=== PATIENT | female | born 1985 | race African-American/Black ===

== ENCOUNTER 2016-04-05 16:38 | Inpatient (IN) | payer MEDICARE, OTHER ==
[~2016-04-05] VITALS: Ht 170.2 cm; Wt 108.9 kg
[2016-04-05 19:00] VITALS: BP 120/75
[2016-04-05] MEDS ORDERED: ACET325T9 PO (19:34)
[2016-04-05] MEDS ORDERED: HYDR2DIS IV (19:34)
[2016-04-05] MEDS ORDERED: OXYC-250 PO ×2 (19:34)
[2016-04-05] MEDS ORDERED: AMLO10TA2 PO (19:34)
[2016-04-05] MEDS ORDERED: ACETAMINOPHEN 325 MG TABLET. PO PRN (19:45)
[2016-04-05] MEDS: HYDROMORPHONE 2 MG/ML VIAL. IV PRN ×2 (20:09→23:03)
[2016-04-05] MEDS: OXYCODONE/APAP 10/325 TABLET. PO SCH (21:14)
[2016-04-05] MEDS ORDERED: INSULIN ASPART 300 UNITS/3 ML INSULN.PEN SQ SCH (22:30)
[2016-04-05] MEDS ORDERED: DEXTROSE 50% 25 GM / 50ML DISP.SYRIN. IV PRN (22:30)
[2016-04-05] MEDS ORDERED: MORPHINE SULFATE 10 MG/ML VIAL. SQ PRN (22:30)
[2016-04-05] MEDS: PIPERACILLIN/TAZOBACTAM 3.375 GM in IV NORMAL SALINE 50ML 50 ML IV SCH (23:44)
[2016-04-05 23:46] VITALS: BP 123/80
[2016-04-06] VITALS (8 sets, daily range): BP systolic 114–143; BP diastolic 73–106
[2016-04-06] MEDS: HYDROMORPHONE 2 MG/ML VIAL. IV PRN ×5 (02:01→21:51)
[2016-04-06] MEDS: OXYCODONE/APAP 10/325 TABLET. PO PRN (02:59)
[2016-04-06] MEDS: PIPERACILLIN/TAZOBACTAM 3.375 GM in IV NORMAL SALINE 50ML 50 ML IV SCH ×3 (05:03→18:13)
[2016-04-06 05:58] LABS: BASO # 0.1 x10^3/uL (0.0-0.2); BASO % 1 % (0-3); EOS % 3 % (0-3); HEMATOCRIT 21.2 % (36.0-47.0); LYMPH # 1.9 x10^3/uL (1.0-4.8); LYMPH % 16 % (24-48); MEAN CORPUSCULAR HEMOGLOBIN 30 pg (25-35); MEAN CORPUSCULAR HGB CONC 32 g/dL (31-37); MEAN CORPUSCULAR VOLUME 93 fL (79-100); MONO % 10 % (0-9); NEUT % 71 % (31-73); PLATELET COUNT 283 x10^3/uL (140-400); RED BLOOD COUNT 2.27 x10^6/uL (3.50-5.40); RED CELL DISTRIBUTION WIDTH 15.1 % (11.5-14.5); WHITE BLOOD COUNT 12.4 x10^3/uL (4.0-11.0)
[2016-04-06 06:02] LABS: HEMOGLOBIN 6.7 g/dL (12.0-15.5)
[2016-04-06 06:25] LABS: ALBUMIN 2.3 g/dL (3.4-5.0); ALBUMIN/GLOBULIN RATIO 0.6 (1.0-1.7); CALCIUM 7.8 mg/dL (8.5-10.1); CREATININE 1.7 mg/dL (0.6-1.0); GFR 42.7; POTASSIUM 4.9 mmol/L (3.5-5.1); TOTAL BILIRUBIN 0.1 mg/dL (0.2-1.0); TOTAL PROTEIN 6.3 g/dL (6.4-8.2)
[2016-04-06] MEDS: INSULIN ASPART 300 UNITS/3 ML INSULN.PEN SQ SCH ×3 (08:00→17:00)
[2016-04-06] MEDS: GABAPENTIN 300 MG CAPSULE. PO SCH ×2 (08:54→21:06)
[2016-04-06] MEDS: AMLODIPINE BESYLATE 10 MG TABLET PO SCH (08:55)
[2016-04-06] MEDS: PANTOPRAZOLE 40 MG TABLET. PO SCH (08:55)
[2016-04-06] MEDS: METOPROLOL TART IMMED RELEASE 25 MG TABLET PO SCH ×2 (08:56→21:06)
[2016-04-06] MEDS: INSULIN DETEMIR 300 UNITS/3 ML INSULN.PEN. SQ SCH ×2 (09:00→21:09)
[2016-04-06] MEDS: OXYCODONE/APAP 10/325 TABLET. PO SCH ×3 (09:04→21:07)
[2016-04-06] MEDS: NICOTINE 21MG PATCH. TD SCH (09:05)
--- NOTE | 2016-04-06 09:06 | PDOC ---
Infectious Disease Note Vital Sign Vital Signs Vital Signs Date Time Temp Pulse Resp B/P Pulse Ox O2 Delivery O2 Flow Rate FiO2 04/06/16 03:02 97.5 102 16 124/80 92 Room Air 97.5 Labs Lab Laboratory Tests Test 04/05/16 22:11 04/06/16 05:00 04/06/16 08:22 Glucose (Fingerstick) 142mg/dL (70-99) 355mg/dL (70-99) White Blood Count 12.4x10^3/uL (4.0-11.0) Red Blood Count 2.27x10^6/uL (3.50-5.40) Hemoglobin 6.7g/dL (12.0-15.5) Hematocrit 21.2% (36.0-47.0) Mean Corpuscular Volume 93fL (79-100) Mean Corpuscular Hemoglobin 30pg (25-35) Mean Corpuscular Hemoglobin Concent 32g/dL (31-37) Red Cell Distribution Width 15.1% (11.5-14.5) Platelet Count 283x10^3/uL (140-400) Neutrophils (%) (Auto) 71% (31-73) Lymphocytes (%) (Auto) 16% (24-48) Monocytes (%) (Auto) 10% (0-9) Eosinophils (%) (Auto) 3% (0-3) Basophils (%) (Auto) 1% (0-3) Neutrophils # (Auto) 8.8x10^3uL (1.8-7.7) Lymphocytes # (Auto) 1.9x10^3/uL (1.0-4.8) Monocytes # (Auto) 1.2x10^3/uL (0.0-1.1) Eosinophils # (Auto) 0.4x10^3/uL (0.0-0.7) Basophils # (Auto) 0.1x10^3/uL (0.0-0.2) Sodium Level 140mmol/L (136-145) Potassium Level 4.9mmol/L (3.5-5.1) Chloride Level 111mmol/L (98-107) Carbon Dioxide Level 22mmol/L (21-32) Anion Gap 7 (6-14) Blood Urea Nitrogen 16mg/dL (7-20) Creatinine 1.7mg/dL (0.6-1.0) Estimated GFR (Cockcroft-Gault) 42.7 BUN/Creatinine Ratio 9 (6-20) Glucose Level 280mg/dL (70-99) Calcium Level 7.8mg/dL (8.5-10.1) Total Bilirubin 0.1mg/dL (0.2-1.0) Aspartate Amino Transf (AST/SGOT) 40U/L (15-37) Alanine Aminotransferase (ALT/SGPT) 54U/L (14-59) Alkaline Phosphatase 117U/L (46-116) Total Protein 6.3g/dL (6.4-8.2) Albumin 2.3g/dL (3.4-5.0) Albumin/Globulin Ratio 0.6 (1.0-1.7) Objective Assessment Right Buttock abscess Leukocytosis Anemia Substance abuse INOCENCIA DM ? Personality Disorder Plan Plan of Care Cont abx Await surgery F/u cults/labs Thank you # [phone] PAL RIOS MD Apr 06, 2016 09:06
[2016-04-06] MEDS: FLUCONAZOLE 100MG/50ML PREMIX 50 ML IV SCH (10:56)
--- NOTE | 2016-04-06 11:49 | PDOC2 ---
CONSULT Date of Consult Date of Consult DATE: 04/06/16 TIME: 11:44 History of Present Illness Reason for Visit: The patient is a 30 year old female who reported to the ER with pain and swelling near the right gluteus. This has been going on for the last several days, and she denies drainage. Past Medical History Past Medical History DM, hypertension, hyperlipidemia, hidradenitis of axilla/groin Past Surgical History Past Surgical History C section X 2, L axillar/R groin I and D, toe amputation Current Medications Current Medications Current Medications Acetaminophen (Tylenol) 650 mg PRN Q4HRS PRN PO PAIN; Start 04/05/16 at 19:45 Amlodipine Besylate (Norvasc) 10 mg DAILY PO Last administered on 04/06/16 08: 55; Start 04/06/16 at 09:00 Oxycodone/ Acetaminophen (Percocet 10/325) 1 tab PRN Q6HRS PRN PO PAIN Last administered on 04/06/16 02:59; Start 04/05/16 at 19:45 Oxycodone/ Acetaminophen (Percocet 10/325) 2 tab TID PO Last administered on 09:04; Start 04/05/16 at 21:00 Hydromorphone HCl 1 mg 1 mg PRN Q3HRS PRN IV PAIN Last administered on 10:57; Start 04/05/16 at 20:00 Linezolid (Zyvox Premix) 300 ml @ 300 mls/hr Q12HR IV Last administered on 08:56; Start 04/05/16 at 21:00 Gabapentin (Neurontin) 900 mg BID PO Last administered on 04/06/16 08:54; Start 04/06/16 at 09:00 Insulin Detemir (Levemir) 20 units BID SQ Last administered on 04/06/16 09:00 ; Start 04/06/16 at 09:00 Insulin Aspart (Novolog) 0-7 UNITS PRN QID SQ ; Start 04/05/16 at 22:30; Status UNV Dextrose 12.5 gm 12.5 gm PRN Q15MIN PRN IV SEE COMMENTS; Start 04/05/16 at 22: 30 Fluconazole/ Sodium Chloride (Diflucan 100mg/ 50ml Premix) 50 ml @ 100 mls/hr Q24H IV Last administered on 04/06/16 10:56; Start 04/06/16 at 11:00 Metoprolol Tartrate (Lopressor) 25 mg BID PO Last administered on 04/06/16 08: 56; Start 04/06/16 at 09:00 Morphine Sulfate 10 mg PRN QID PRN SQ SEVERE PAIN; Start 04/05/16 at 22:30 Nicotine (Nicoderm Cq 21mg) 1 patch DAILY TD Last administered on 04/06/16 09: 05; Start 04/06/16 at 09:00 Ondansetron HCl (Zofran) 4 mg PRN Q6HRS PRN IV NAUSEA/VOMITING; Start 04/05/16 at 22:30 Pantoprazole Sodium 40 mg 40 mg DAILYAC PO Last administered on 04/06/16 08:55 ; Start 04/06/16 at 07:30 Piperacillin Sod/ Tazobactam Sod/ Sodium Chloride (Zosyn/Iv Sodium Chloride 0.9 % 50ml) 50 ml @ 100 mls/hr Q6HRS IV Last administered on 04/06/16 05:03; Start 04/06/16 at 00:00 Promethazine HCl (Phenergan) 12.5 mg PRN BID PRN PO NAUSEA/VOMITING; Start at 22:30 Atorvastatin Calcium (Lipitor) 10 mg QHS PO ; Start 04/06/16 at 21:00 Tamsulosin HCl (Flomax) 0.4 mg QHS PO ; Start 04/06/16 at 21:00 Insulin Aspart (Novolog) 0-9 UNITS TIDWMEALS SQ Last administered on 04/06/16 08:00; Start 04/06/16 at 08:00 Active Scripts Active Reported Percocet 10-325 Mg Tablet (Oxycodone/Acetaminophen) 1 Each Tablet 2 Tab PO TID Percocet 10-325 Mg Tablet (Oxycodone/Acetaminophen) 1 Each Tablet 1 Tab PO Q6HRS PRN Hydromorphone 2 Mg/Ml Syringe (Hydromorphone Hcl) 2 Mg/1 Ml Disp.syrin 1 Mg IV Q3HRS PRN Amlodipine Besylate 10 Mg Tablet 10 Mg PO DAILY Tylenol (Acetaminophen) 325 Mg Tablet 650 Mg PO Q4HRS PRN Allergies Allergies: Coded Allergies: No Known Drug Allergies (Unverified , 04/05/16) ROS General: No: Appetite, Chills, Fatigue, Malaise, Night Sweats, Other PSYCHOLOGICAL ROS: No: Anxiety, Behavioral Disorder, Concentration difficultie , Decreased libido, Depression, Disorientation, Hallucinations, Hostility, Irritablity, Memory difficulties, Mood Swings, Obsessive thoughts, Other, Physical abuse, Sexual abuse, Sleep disturbances, Suicidal ideation Eyes: No Blurry vision, No Decreased vision, No Double vision, No Dry eyes, No Excessive tearing, No Eye Pain, No Itchy Eyes, No Loss of vision, No Other, No Photophobia, No Scotomata, No Uses contacts, No Uses glasses HEENT: No: Epistaxis, Heacaches, Hearing change, Nasal congestion, Nasal discharge, Oral lesions, Other, Sinus pain, Sneezing, Snoring, Sore Throat, Tinnitus, Vertigo, Visual Changes, Vocal changes ALLERGY AND IMMUNOLOGY: No: Hives, Insect Bite Sensitivity, Itchy/Watery Eyes, Nasal Congestion, Other, Post Nasal Drip, Seasonal Allergies Hematological and Lymphatic: No: Bleeding Problems, Blood Clots, Blood Transfusions, Brusing, Night Sweats, Other, Pallor, Swollen Lymph Nodes Respiratory: No: Cough, Hemoptysis, Orthopnea, Other, Pleuritic Pain, SOB with excertion, Shortness of breath, Sputum Changes, Stridor, Tachypnea, Wheezing Cardiovascular: No Chest Pain, No Edema, No Lt Headedness, No Orthopnea, No Other, No Palpitations, No Paroxysmal Noc. Dyspnea Gastrointestinal: No Abdominal Pain, No Constipation, No Diarrhea, No Hematochezia, No Melena, No Nausea, No Other, No Vomiting Genitourinary: No , No , No , No , No , No , No , No Discharge, No Dysuria, No Flank Pain, No Frequency, No Hematuria, No Incontinence, No Other, No Pain, No Retention, No Urgency Musculoskeletal: No Gait Disturbance, No Joint Pain, No Joint Stiffness, No Joint Swelling, No Muscle Pain, No Muscular Weakness, No Other, No Pain In:, No Swelling In: Neurological: No Behavorial Changes, No Bowel/Bladder ControlChng, No Confusion , No Dizziness, No Gait Disturbance, No Headaches, No Impaired Coord/balance, No Memory Loss, No Numbness/Tingling, No Other, No Seizures, No Speech Problems , No Tremors, No Visual Changes, No Weakness Physical Exam Physical Exam R gluteus with induration, fluctuation General: Alert, Oriented X3, Other (somewhat unpleasant) HEENT: Atraumatic, PERRLA Lungs: Clear to auscultation Heart: Regular rate Abdomen: Normal bowel sounds, Soft Extremities: No clubbing, No cyanosis Neuro: Normal speech, Strength at 5/5 X4 ext Psych/Mental Status: Other (verbally antagonistic) Vitals VITALS Vital Signs Date Time Temp Pulse Resp B/P Pulse Ox O2 Delivery O2 Flow Rate FiO2 04/06/16 08:56 110 122/78 04/06/16 07:10 97.7 16 95 Room Air 97.7 Labs Labs Laboratory Tests Test 04/05/16 22:11 04/06/16 05:00 04/06/16 08:22 Glucose (Fingerstick) 142mg/dL (70-99) 355mg/dL (70-99) White Blood Count 12.4x10^3/uL (4.0-11.0) Red Blood Count 2.27x10^6/uL (3.50-5.40) Hemoglobin 6.7g/dL (12.0-15.5) Hematocrit 21.2% (36.0-47.0) Mean Corpuscular Volume 93fL (79-100) Mean Corpuscular Hemoglobin 30pg (25-35) Mean Corpuscular Hemoglobin Concent 32g/dL (31-37) Red Cell Distribution Width 15.1% (11.5-14.5) Platelet Count 283x10^3/uL (140-400) Neutrophils (%) (Auto) 71% (31-73) Lymphocytes (%) (Auto) 16% (24-48) Monocytes (%) (Auto) 10% (0-9) Eosinophils (%) (Auto) 3% (0-3) Basophils (%) (Auto) 1% (0-3) Neutrophils # (Auto) 8.8x10^3uL (1.8-7.7) Lymphocytes # (Auto) 1.9x10^3/uL (1.0-4.8) Monocytes # (Auto) 1.2x10^3/uL (0.0-1.1) Eosinophils # (Auto) 0.4x10^3/uL (0.0-0.7) Basophils # (Auto) 0.1x10^3/uL (0.0-0.2) Sodium Level 140mmol/L (136-145) Potassium Level 4.9mmol/L (3.5-5.1) Chloride Level 111mmol/L (98-107) Carbon Dioxide Level 22mmol/L (21-32) Anion Gap 7 (6-14) Blood Urea Nitrogen 16mg/dL (7-20) Creatinine 1.7mg/dL (0.6-1.0) Estimated GFR (Cockcroft-Gault) 42.7 BUN/Creatinine Ratio 9 (6-20) Glucose Level 280mg/dL (70-99) Calcium Level 7.8mg/dL (8.5-10.1) Total Bilirubin 0.1mg/dL (0.2-1.0) Aspartate Amino Transf (AST/SGOT) 40U/L (15-37) Alanine Aminotransferase (ALT/SGPT) 54U/L (14-59) Alkaline Phosphatase 117U/L (46-116) Total Protein 6.3g/dL (6.4-8.2) Albumin 2.3g/dL (3.4-5.0) Albumin/Globulin Ratio 0.6 (1.0-1.7) Laboratory Tests Test 04/05/16 22:11 04/06/16 05:00 04/06/16 08:22 Glucose (Fingerstick) 142mg/dL (70-99) 355mg/dL (70-99) White Blood Count 12.4x10^3/uL (4.0-11.0) Red Blood Count 2.27x10^6/uL (3.50-5.40) Hemoglobin 6.7g/dL (12.0-15.5) Hematocrit 21.2% (36.0-47.0) Mean Corpuscular Volume 93fL (79-100) Mean Corpuscular Hemoglobin 30pg (25-35) Mean Corpuscular Hemoglobin Concent 32g/dL (31-37) Red Cell Distribution Width 15.1% (11.5-14.5) Platelet Count 283x10^3/uL (140-400) Neutrophils (%) (Auto) 71% (31-73) Lymphocytes (%) (Auto) 16% (24-48) Monocytes (%) (Auto) 10% (0-9) Eosinophils (%) (Auto) 3% (0-3) Basophils (%) (Auto) 1% (0-3) Neutrophils # (Auto) 8.8x10^3uL (1.8-7.7) Lymphocytes # (Auto) 1.9x10^3/uL (1.0-4.8) Monocytes # (Auto) 1.2x10^3/uL (0.0-1.1) Eosinophils # (Auto) 0.4x10^3/uL (0.0-0.7) Basophils # (Auto) 0.1x10^3/uL (0.0-0.2) Sodium Level 140mmol/L (136-145) Potassium Level 4.9mmol/L (3.5-5.1) Chloride Level 111mmol/L (98-107) Carbon Dioxide Level 22mmol/L (21-32) Anion Gap 7 (6-14) Blood Urea Nitrogen 16mg/dL (7-20) Creatinine 1.7mg/dL (0.6-1.0) Estimated GFR (Cockcroft-Gault) 42.7 BUN/Creatinine Ratio 9 (6-20) Glucose Level 280mg/dL (70-99) Calcium Level 7.8mg/dL (8.5-10.1) Total Bilirubin 0.1mg/dL (0.2-1.0) Aspartate Amino Transf (AST/SGOT) 40U/L (15-37) Alanine Aminotransferase (ALT/SGPT) 54U/L (14-59) Alkaline Phosphatase 117U/L (46-116) Total Protein 6.3g/dL (6.4-8.2) Albumin 2.3g/dL (3.4-5.0) Albumin/Globulin Ratio 0.6 (1.0-1.7) Assessment/Plan Assessment/Plan R gluteal abscess, plan for I and D. Pt currently on diet, will make NPO after midnight and schedule in AM. LUCHO LORD MD Apr 06, 2016 11:49
--- NOTE | 2016-04-06 11:59 | HP ---
ADMIT DATE: 04/06/2016 HISTORY OF PRESENT ILLNESS: The patient is a 30-year-old -Citizen Of [place] female patient who was admitted on 04/02/2015 to the Emergency Room at [facility] complaining of pain in her right gluteal area and back pain, also complaining that her blood sugars were high. She also thought that she had a UTI and complained of dysuria and frequency and she was extensively investigated in the Emergency Room, was found to have right gluteal abscess/cellulitis. She has a neurogenic bladder with urinary retention that she does self-catheterize. Her blood sugar was markedly elevated. She has also marked leukocytosis, her white cell count of 16,000 and was admitted with poorly controlled blood sugar, right gluteal abscess/cellulitis as well as possible urinary tract infection. Her urinalysis, however, was unremarkable and her urine culture did not show any growth ____ area in the right gluteal area extending to the right labia was mostly induration without any drainable fluid collection on the first ultrasound; however, on the second ultrasound done 2 days later, which showed that there is an adenomatous soft tissue and the right labia and buttocks region. In addition, there is a more focal hypoechoic lesion seen within the subcutaneous soft tissue and could be from phlegmon formation. While in the hospital, her white cell count was initially high at 20,000 and today it came down to 15,500. I did start her on IV Zosyn and vancomycin through her Port-A-Cath. Unfortunately, her serum creatinine has steadily risen from 1.5 to 2.2 and given that she might require surgical incision and her kidney function as well as her liver function are slightly worse. I decided to transfer her to [facility] to consult the surgical team for possible incision and drainage of her right gluteal abscess as well as consult the Infectious Disease and Nephrology team. I did discontinue her acyclovir and vancomycin as a potential cause of her acute kidney injury. PAST MEDICAL HISTORY: Significant for hypertension, longstanding type 1 diabetes with multiple complications including multiple episodes of diabetic ketoacidosis, neurogenic bladder and diabetic nephropathy as well as neuropathy. She has had her right great toe amputated. She has also chronic kidney disease stage 3. PAST SURGICAL HISTORY: Significant for x2, tibio-talocalcaneal arthrodesis. She has also Port-A-Cath placement in the right great toe amputation. FAMILY HISTORY: Positive for type 2 diabetes, hypertension and heart disease in her mother and diabetes in her paternal grandmother. SOCIAL HISTORY: She lives with her 2 children. She smokes half a pack a day for 15 years. She does not drink alcohol; however, his urine toxicology screen was positive for cocaine and cannabinoids. REVIEW OF SYSTEMS: As per history of present illness. ALLERGIES: She apparently has no known drug allergies. MEDICATIONS: She was transferred to [facility] to continue on following medications: ____ acyclovir 400 mg once a day, amlodipine besylate 10 mg once a day, Colace 100 mg twice a day, gabapentin 600 mg p.o. b.i.d. She is on NovoLog insulin 10 units before meals and bedtime. She is on Lantus 20 units twice a day, metoprolol tartrate 25 mg p.o. b.i.d., ondansetron 4 mg IV every 4 hours as needed. She is on oxycodone/APAP 10/325 ____ two tablets 3 times a day, Protonix 40 mg once a day, promethazine 12.5 mg b.i.d. p.r.n. and simvastatin 20 mg once a day, tamsulosin 0.4 mg at bedtime and tramadol 50 mg tablet. PHYSICAL EXAMINATION: GENERAL: When I examined her this morning, she looked well and was clearly in no apparent respiratory distress. She was pale, but no jaundice, cyanosis or thyromegaly. No jugular venous distention. No limb edema. VITAL SIGNS: Her heart rate was 93, blood pressure 132/87, temperature was 98.8, respiratory rate was 20, and oxygen saturation was 93%. HEAD, EYES, EARS, NOSE AND THROAT: Showed normocephalic, atraumatic. NECK: Supple. HEART: Showed normal first and second heart sounds with no gallop, rub or murmur. CHEST: Shows central trachea. She has a Port-A-Cath in the right infraclavicular area, equal bilateral chest expansion, air entry, vesicular sounds. No crepitation or rhonchi. ABDOMEN: Distended, soft, nontender. No guarding or rigidity. No organomegaly. Hernial orifices intact. Bowel sounds normal. NEUROLOGIC: She was awake, alert, responding appropriately. Cranial nerves intact. EXTREMITIES: She moves extremities without difficulty. She ambulates without assistance or assistive devices. LABORATORY DATA: Her lab work this morning showed a white cell count 12,400, hemoglobin 6.7, hematocrit 21.2, MCV 93, and platelet count 283,000 with a manual differential showed 71% polymorphs, 16% lymphocytes, and 10% monocytes. Her chemistry showed that her serum sodium was 140, potassium 4.9, chloride 111, bicarbonate 22, anion gap of 7, BUN 16, creatinine 1.7, estimated GFR was 42 mL per minute. Her glucose was 280, calcium was 7.1. Total bilirubin, AST, ALT, alkaline phosphatase are slightly high, but trending down. Her total protein was 6.3, albumin was 2.3. PLAN: My plan is to consult the Infectious Disease, the surgical team as well as the Nephrology, although her creatinine is trending down to her baseline after I stop her acyclovir as well as the vancomycin. We will continue with Zyvox, fluconazole and Zosyn and transfuse her 1 unit of packed RBCs. I will also check her hematinics and decide on further management accordingly. ETHAN LAW MD DR: LEXIS/indira JOB#: [id number] / [id number]
--- NOTE | 2016-04-06 15:56 | PDOC2 ---
CONSULT Date of Consult Date of Consult DATE: 04/06/16 TIME: 15:49 Reason for Consult Reason for Consult: INOCENCIA/ ? CKD III Referring Physician Referring Physician: Dr Sal Identification/Chief Complaint Chief Complaint Back pain Problems: Source Source: Chart review, Patient History of Present Illness Reason for Visit: as dictated Past Medical History Past Medical History PAST SURGICAL HISTORY: Significant for x2, tibio-talocalcaneal arthrodesis. She has also Port-A-Cath placement in the right great toe amputation. FAMILY HISTORY: Positive for type 2 diabetes, hypertension and heart disease in her mother and diabetes in her paternal grandmother. SOCIAL HISTORY: She lives with her 2 children. She smokes half a pack a day for 15 years. She does not drink alcohol; however, his urine toxicology screen was positive for cocaine and cannabinoids. Current Medications Current Medications Current Medications Acetaminophen (Tylenol) 650 mg PRN Q4HRS PRN PO PAIN; Start 04/05/16 at 19:45 Amlodipine Besylate (Norvasc) 10 mg DAILY PO Last administered on 04/06/16 08: 55; Start 04/06/16 at 09:00 Oxycodone/ Acetaminophen (Percocet 10/325) 1 tab PRN Q6HRS PRN PO PAIN Last administered on 04/06/16 02:59; Start 04/05/16 at 19:45 Oxycodone/ Acetaminophen (Percocet 10/325) 2 tab TID PO Last administered on 14:23; Start 04/05/16 at 21:00 Hydromorphone HCl 1 mg 1 mg PRN Q3HRS PRN IV PAIN Last administered on 10:57; Start 04/05/16 at 20:00 Linezolid (Zyvox Premix) 300 ml @ 300 mls/hr Q12HR IV Last administered on 08:56; Start 04/05/16 at 21:00 Gabapentin (Neurontin) 900 mg BID PO Last administered on 04/06/16 08:54; Start 04/06/16 at 09:00 Insulin Detemir (Levemir) 20 units BID SQ Last administered on 04/06/16 09:00 ; Start 04/06/16 at 09:00 Insulin Aspart (Novolog) 0-7 UNITS PRN QID SQ ; Start 04/05/16 at 22:30; Status UNV Dextrose 12.5 gm 12.5 gm PRN Q15MIN PRN IV SEE COMMENTS; Start 04/05/16 at 22: 30 Fluconazole/ Sodium Chloride (Diflucan 100mg/ 50ml Premix) 50 ml @ 100 mls/hr Q24H IV Last administered on 04/06/16 10:56; Start 04/06/16 at 11:00 Metoprolol Tartrate (Lopressor) 25 mg BID PO Last administered on 04/06/16 08: 56; Start 04/06/16 at 09:00 Morphine Sulfate 10 mg PRN QID PRN SQ SEVERE PAIN; Start 04/05/16 at 22:30 Nicotine (Nicoderm Cq 21mg) 1 patch DAILY TD Last administered on 04/06/16 09: 05; Start 04/06/16 at 09:00 Ondansetron HCl (Zofran) 4 mg PRN Q6HRS PRN IV NAUSEA/VOMITING; Start 04/05/16 at 22:30 Pantoprazole Sodium 40 mg 40 mg DAILYAC PO Last administered on 04/06/16 08:55 ; Start 04/06/16 at 07:30 Piperacillin Sod/ Tazobactam Sod/ Sodium Chloride (Zosyn/Iv Sodium Chloride 0.9 % 50ml) 50 ml @ 100 mls/hr Q6HRS IV Last administered on 04/06/16 14:25; Start 04/06/16 at 00:00 Promethazine HCl (Phenergan) 12.5 mg PRN BID PRN PO NAUSEA/VOMITING; Start at 22:30 Atorvastatin Calcium (Lipitor) 10 mg QHS PO ; Start 04/06/16 at 21:00 Tamsulosin HCl (Flomax) 0.4 mg QHS PO ; Start 04/06/16 at 21:00 Insulin Aspart (Novolog) 0-9 UNITS TIDWMEALS SQ Last administered on 04/06/16 12:00; Start 04/06/16 at 08:00 Active Scripts Active Reported Percocet 10-325 Mg Tablet (Oxycodone/Acetaminophen) 1 Each Tablet 2 Tab PO TID Percocet 10-325 Mg Tablet (Oxycodone/Acetaminophen) 1 Each Tablet 1 Tab PO Q6HRS PRN Hydromorphone 2 Mg/Ml Syringe (Hydromorphone Hcl) 2 Mg/1 Ml Disp.syrin 1 Mg IV Q3HRS PRN Amlodipine Besylate 10 Mg Tablet 10 Mg PO DAILY Tylenol (Acetaminophen) 325 Mg Tablet 650 Mg PO Q4HRS PRN Allergies Allergies: Coded Allergies: No Known Drug Allergies (Unverified , 04/05/16) ROS Review of System GEN: subj Fevers no Chills EYES: ch Visual Complaints ENT: no EN Drainage no Hearing deficiets CVS: no Orthopnea no CP RESP: no SOB no FLORES GI: min Nausea occ Vomiting : no Dysuria no Urgency - self caths HEME: no easy bruising no Palp Ly Nodes NEURO no Focal Weakness no Sz PSYCH: no Suicidal Ideation ++ Depression SKIN: no Rashes ENDO: no Polyuria or Polydipsia no Hot/Cold Intolerance MU SK: _ Arthraigia min back pain/ ? Myalgia Physical Exam Physical Exam General Appearance: Awake Alert Oriented x 3 In min Distress; Tearful/ depressed Eyes: VIsion Unchanged Conjunctiva Normal EN: No EN Drainage Mucous Memb. moist Neck: no JVD no JVP Supple no Thyromegaly CVS: S1 S2 ? Murmur No Gallop No Rub +2 Edema Resp: rare Rales no Rhonchi no Acc. Muscle use GI: BS +ve NO Bruit Non Tender Non Distended : no CVA tenderness; no Suprapubic Tenderness SKIN: no Rashes Breast Exam deferred; ? Discoloration of Lt great toe Mu.Sk: Decreased ROM in foot no Muscle Atrophy; Rt Great toe amputation Heme: Unable to palpate Obvious LAD no palp Splenomegaly NEURO: dec Strength in foot Cranial Nerves II - XII grossly intact Psych: ++ Depressed no Active hallucination Vital Signs Vital Signs Date Time Temp Pulse Resp B/P Pulse Ox O2 Delivery O2 Flow Rate FiO2 04/06/16 15:25 98.6 105 16 123/78 95 Room Air 98.6 Assessment & Plan ARF: pt is not aware of same - suspect due to ongoing infection. Current FLuid and E-lyte status does not necessitate emergent need for Dialysis. Will re-evaluate for Dialysis in am Edema - r/o nephrotic syndrome - check 24-hr URine; have not started Direutics until renal function stabliizes CKD III/ IV underlying cannot be ruled out ? PVD - await wound care eval - she may need vasc Surgery to see also [place] - may need IV Albumin Neurogenic Bladder with Back Pain - renal us to R/o [place] - juan in place already sev Anemia: Start Epogen Transfuse as needed. HTN: Current BP meds reviewed. See orders for changes. Gluteal abscess - for I and D tomorrow Discussed Plan of Care and prognosis etc. at length with family. Labs Labs Laboratory Tests Test 04/05/16 22:11 04/06/16 05:00 04/06/16 08:22 04/06/16 11:45 Glucose (Fingerstick) 142mg/dL (70-99) 355mg/dL (70-99) 259mg/dL (70-99) White Blood Count 12.4x10^3/uL (4.0-11.0) Red Blood Count 2.27x10^6/uL (3.50-5.40) Hemoglobin 6.7g/dL (12.0-15.5) Hematocrit 21.2% (36.0-47.0) Mean Corpuscular Volume 93fL (79-100) Mean Corpuscular Hemoglobin 30pg (25-35) Mean Corpuscular Hemoglobin Concent 32g/dL (31-37) Red Cell Distribution Width 15.1% (11.5-14.5) Platelet Count 283x10^3/uL (140-400) Neutrophils (%) (Auto) 71% (31-73) Lymphocytes (%) (Auto) 16% (24-48) Monocytes (%) (Auto) 10% (0-9) Eosinophils (%) (Auto) 3% (0-3) Basophils (%) (Auto) 1% (0-3) Neutrophils # (Auto) 8.8x10^3uL (1.8-7.7) Lymphocytes # (Auto) 1.9x10^3/uL (1.0-4.8) Monocytes # (Auto) 1.2x10^3/uL (0.0-1.1) Eosinophils # (Auto) 0.4x10^3/uL (0.0-0.7) Basophils # (Auto) 0.1x10^3/uL (0.0-0.2) Sodium Level 140mmol/L (136-145) Potassium Level 4.9mmol/L (3.5-5.1) Chloride Level 111mmol/L (98-107) Carbon Dioxide Level 22mmol/L (21-32) Anion Gap 7 (6-14) Blood Urea Nitrogen 16mg/dL (7-20) Creatinine 1.7mg/dL (0.6-1.0) Estimated GFR (Cockcroft-Gault) 42.7 BUN/Creatinine Ratio 9 (6-20) Glucose Level 280mg/dL (70-99) Calcium Level 7.8mg/dL (8.5-10.1) Total Bilirubin 0.1mg/dL (0.2-1.0) Aspartate Amino Transf (AST/SGOT) 40U/L (15-37) Alanine Aminotransferase (ALT/SGPT) 54U/L (14-59) Alkaline Phosphatase 117U/L (46-116) Total Protein 6.3g/dL (6.4-8.2) Albumin 2.3g/dL (3.4-5.0) Albumin/Globulin Ratio 0.6 (1.0-1.7) Laboratory Tests Test 04/05/16 22:11 04/06/16 05:00 04/06/16 08:22 04/06/16 11:45 Glucose (Fingerstick) 142mg/dL (70-99) 355mg/dL (70-99) 259mg/dL (70-99) White Blood Count 12.4x10^3/uL (4.0-11.0) Red Blood Count 2.27x10^6/uL (3.50-5.40) Hemoglobin 6.7g/dL (12.0-15.5) Hematocrit 21.2% (36.0-47.0) Mean Corpuscular Volume 93fL (79-100) Mean Corpuscular Hemoglobin 30pg (25-35) Mean Corpuscular Hemoglobin Concent 32g/dL (31-37) Red Cell Distribution Width 15.1% (11.5-14.5) Platelet Count 283x10^3/uL (140-400) Neutrophils (%) (Auto) 71% (31-73) Lymphocytes (%) (Auto) 16% (24-48) Monocytes (%) (Auto) 10% (0-9) Eosinophils (%) (Auto) 3% (0-3) Basophils (%) (Auto) 1% (0-3) Neutrophils # (Auto) 8.8x10^3uL (1.8-7.7) Lymphocytes # (Auto) 1.9x10^3/uL (1.0-4.8) Monocytes # (Auto) 1.2x10^3/uL (0.0-1.1) Eosinophils # (Auto) 0.4x10^3/uL (0.0-0.7) Basophils # (Auto) 0.1x10^3/uL (0.0-0.2) Sodium Level 140mmol/L (136-145) Potassium Level 4.9mmol/L (3.5-5.1) Chloride Level 111mmol/L (98-107) Carbon Dioxide Level 22mmol/L (21-32) Anion Gap 7 (6-14) Blood Urea Nitrogen 16mg/dL (7-20) Creatinine 1.7mg/dL (0.6-1.0) Estimated GFR (Cockcroft-Gault) 42.7 BUN/Creatinine Ratio 9 (6-20) Glucose Level 280mg/dL (70-99) Calcium Level 7.8mg/dL (8.5-10.1) Total Bilirubin 0.1mg/dL (0.2-1.0) Aspartate Amino Transf (AST/SGOT) 40U/L (15-37) Alanine Aminotransferase (ALT/SGPT) 54U/L (14-59) Alkaline Phosphatase 117U/L (46-116) Total Protein 6.3g/dL (6.4-8.2) Albumin 2.3g/dL (3.4-5.0) Albumin/Globulin Ratio 0.6 (1.0-1.7) HUGO ZEE MD Apr 06, 2016 15:56
[2016-04-06] MEDS ORDERED: MAGNESIUM SULFATE 2GM 50 ML IV PRN (16:00)
[2016-04-06 19:01] LABS: % SAT IRON 14 % (15-34); IRON,SERUM 23 ug/dL (50-170)
[2016-04-06 19:21] LABS: URIC ACID 4.1 mg/dL (2.6-6.0)
[2016-04-06] MEDS: TAMSULOSIN 0.4 MG CAP.ER.24H. PO SCH (21:00)
[2016-04-06] MEDS: ATORVASTATIN CALCIUM 10 MG TABLET. PO SCH (21:06)
[2016-04-07] VITALS (8 sets, daily range): BP systolic 124–135; BP diastolic 69–98
[2016-04-07] MEDS: HYDROMORPHONE 2 MG/ML VIAL. IV PRN ×7 (00:17→21:41)
--- NOTE | 2016-04-07 01:29 | CONS ---
DATE OF CONSULTATION: 04/06/2016 The patient's room: 663. REQUESTING PHYSICIAN: Dr. Michael Sal. REASON FOR CONSULTATION: Buttock abscess. HISTORY OF PRESENT ILLNESS: A 30-year-old -[place] female with a history of diabetes since age 11, who presented to [facility] on and was admitted secondary to a buttock abscess. She had a white blood cell count of 16,000. She had a right gluteal abscess with cellulitis. Her toxic screen was positive for cocaine as well as cannabinoids. She started on fluconazole, Zosyn and Diflucan and she was admitted to the hospital. She has now been transferred to [facility] for further care and evaluation. Currently, she is in bed. She is upset about the care that she has been received staying that people have been coming in the room, not introducing themselves, ____ her breakfast tray. Hence, she is sent back 2 breakfast trays in this morning. Prior to admission, she was having some fevers and chills. She has had previous abscesses before in her vaginal and left axillary area that had had to be drained. Currently, she has mild headaches. She has some sinus drainage is clear, no sore throat or cough or chest pain. No nausea, vomiting, diarrhea, or dysuria. She has a Michel in place. PAST MEDICAL HISTORY: Positive for hypertension, diabetes, history of diabetic ketoacidosis, previous right great toe amputation, chronic kidney disease stage III and substance abuse. PAST SURGICAL HISTORY: Positive for x 2, Port-A-Cath placement, right great toe amputation and tibiotalar calcaneal and arthrodesis. REVIEW OF SYSTEMS: Otherwise negative except for mentioned above. ALLERGIES: No known drug allergies. SOCIAL HISTORY: She has 2 children. She is a smoker. No alcohol, but does have substance abuse screen positive. FAMILY HISTORY: Diabetes, heart disease and hypertension. CURRENT MEDICATIONS: Include fluconazole, Zyvox, Zosyn, Lipitor, Neurontin, Dilaudid. Other meds are available, had been reviewed in the chart. PHYSICAL EXAMINATION: VITAL SIGNS: She is afebrile, temperature 97.5, pulse 102, respirations 16, blood pressure 124/80, satting 96% on room air. CONSTITUTIONAL: She is in no acute distress. HEENT: Pupils are equal and reactive. She has normal conjunctivae. Oral cavity, pharynx is clear. NECK: Supple. Port-A-Cath without signs of complications in right chest. LUNGS: Clear to auscultation. HEART: S1, S2. ABDOMEN: Soft, nontender, nondistended, positive bowel sounds. EXTREMITIES: No clubbing, cyanosis or gross edema. She has tattoos. SKIN: Warm to touch without signs of rash and again Michel is in place. NEUROLOGIC: She moves all extremities. She has a right buttock wound. There some induration associated with it and some pus is able to be expressed from the small hole. Left axillary area has some chronic drainage as well as the right and the right vaginal labial area has some chronic scarring. No signs of any ongoing thrush obvious rash. LABORATORY DATA: White count 12.4, hemoglobin 6.7, platelets of 283, neutrophils 71, lymphs 16, monocytes are 10. Creatinine of 1.7, glucose of 280, AST was 40, ALT 54. No radiological studies. Creatinine was 2.2 the other day. Her MRSA screen was negative. Influenza screen was negative as well. IMPRESSION: 1. Right buttock abscess. 2. Leukocytosis. 3. Anemia. 4. Substance abuse. 5. Acute kidney injury. 6. Diabetes. 7. 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 RECOMMENDATIONS: For now, continue antibiotics, await Surgery, followup cultures and labs. Dr. Sal, thank you for speaking this patient's care. If you have any questions, please do not hesitate to contact me. PAL RIOS MD DR: KACIE/indira JOB#: [id number] / [id number]
[2016-04-07] MEDS: OXYCODONE/APAP 10/325 TABLET. PO PRN ×2 (02:39→17:46)
[2016-04-07] MEDS: ONDANSETRON PF 4 MG/2 ML VIAL. IV PRN (03:27)
[2016-04-07] MEDS: PIPERACILLIN/TAZOBACTAM 3.375 GM in IV NORMAL SALINE 50ML 50 ML IV SCH ×5 (06:17→17:46)
[2016-04-07 06:46] LABS: BASO # 0.1 x10^3/uL (0.0-0.2); BASO % 1 % (0-3); EOS % 4 % (0-3); HEMATOCRIT 25.9 % (36.0-47.0); HEMOGLOBIN 8.4 g/dL (12.0-15.5); LYMPH # 2.1 x10^3/uL (1.0-4.8); LYMPH % 23 % (24-48); MEAN CORPUSCULAR HEMOGLOBIN 30 pg (25-35); MEAN CORPUSCULAR HGB CONC 32 g/dL (31-37); MEAN CORPUSCULAR VOLUME 91 fL (79-100); MONO % 10 % (0-9); NEUT % 62 % (31-73); PLATELET COUNT 303 x10^3/uL (140-400); RED BLOOD COUNT 2.84 x10^6/uL (3.50-5.40); RED CELL DISTRIBUTION WIDTH 15.6 % (11.5-14.5); WHITE BLOOD COUNT 9.2 x10^3/uL (4.0-11.0)
[2016-04-07 07:18] LABS: % SAT IRON 11 % (15-34); IRON,SERUM 20 ug/dL (50-170)
[2016-04-07] MEDS ORDERED: LIDOCAINE 1%/EPI 1:100,000 20 ML VIAL. ONE (07:27)
[2016-04-07 07:29] LABS: ALBUMIN 2.2 g/dL (3.4-5.0); ALBUMIN/GLOBULIN RATIO 0.5 (1.0-1.7); CALCIUM 8.3 mg/dL (8.5-10.1); CREATININE 1.4 mg/dL (0.6-1.0); GFR 53.4; PHOSPHORUS 2.6 mg/dL (2.6-4.7); POTASSIUM 4.7 mmol/L (3.5-5.1); TOTAL BILIRUBIN 0.2 mg/dL (0.2-1.0); TOTAL PROTEIN 6.5 g/dL (6.4-8.2)
[2016-04-07] MEDS: INSULIN ASPART 300 UNITS/3 ML INSULN.PEN SQ SCH ×3 (08:00→18:00)
[2016-04-07] MEDS ORDERED: LIDOCAINE 2% 100 MG/5 ML DISP.SYRIN. ONE (08:25)
[2016-04-07] MEDS ORDERED: FENTANYL PF 250 MCG/5 ML VIAL. ONE (08:25)
[2016-04-07] MEDS ORDERED: SEVOFLURANE 16 TO 30 MINUTES. IH ONE (08:25)
[2016-04-07] MEDS ORDERED: FAMOTIDINE 20 MG/2 ML VIAL ONE (08:26)
[2016-04-07] MEDS ORDERED: METOCLOPRAMIDE HCL 10 MG/2 ML VIAL. ONE (08:26)
[2016-04-07] MEDS ORDERED: PROPOFOL 20 ML IV ONE (08:26)
[2016-04-07 08:45] LABS: NEG OBC UR NEG; POS OBC UR POS
[2016-04-07] MEDS: INSULIN DETEMIR 300 UNITS/3 ML INSULN.PEN. SQ SCH ×2 (09:00→21:36)
[2016-04-07] MEDS ORDERED: IV RINGERS,LACTATED 1000ML 1,000 ML IV ONE (09:00)
--- NOTE | 2016-04-07 09:08 | CONS ---
DATE OF CONSULTATION: PRIMARY PHYSICIAN: Dr. Sal. REASON FOR CONSULTATION: Acute renal insufficiency. HISTORY OF PRESENT ILLNESS: The patient is a 30-year-old -Irish female who was initially admitted at [facility] because of pain in her right gluteal area and back. She is known to have neurogenic bladder and was found to have urinary retention. She does self catheterization herself. Her sugars were markedly elevated also. She underwent CT scan and was found to have large gluteal abscess extending to the right labia. She is now here for surgical evaluation. It is unclear to me if a CT scan was done with IV contrast, results of those are not available to me. It is felt that her baseline creatinine was 1.5 and had gone up to 2.2. She is not aware of known renal insufficiency, but she is known to have "kidney issues" which she is unable to differentiate it from her neurogenic bladder and urinary retention related issues. She also had intermittent back pain to her kidney problems. For rest of details, see electronic records. HUGO ZEE MD DR: LOYD/indira JOB#: [id number] / [id number]
[2016-04-07] MEDS ORDERED: FENTANYL PF 100 MCG/2 ML VIAL. ONE (09:15)
--- NOTE | 2016-04-07 09:21 | PDOC4 ---
Operative Note Operative Note Operative Note: Preoperative Diagnosis: Right gluteal abscess Postoperative Diagnosis: Same Procedure: Incision and drainage of right gluteal abscess Surgeon: Alfredo Anesthesia: Gen. Specimen: Cultures to microbiology Drains: None Complications: None Indication: The patient is a 30-year-old female with diabetes who was admitted with pain and swelling of the right gluteus. Examination shows an abscess. We recommend incision and drainage to be done in the operating room. The details and risks of surgery were discussed with the patient which include bleeding, infection, recurrence, pain, potential need for additional surgery or procedure. She understands and would like to proceed. Description: The patient was taken to the operating room and placed supine on the operating table. Gen. anesthesia was performed. She was then positioned with her right side up on the operating bed. The right gluteus was prepped with Betadine and draped with sterile towels and sheets. An incision was made in the fluctuant area with immediate return of a small amount of purulent fluid. Cultures of the fluid were obtained and sent to microbiology. The incision was extended some to facilitate drainage. Digital probing was then performed to free up any loculations. The entire abscess cavity was then irrigated with sterile saline and packed with sterile gauze. A dressing was then applied. The patient tolerated the procedure well and was sent to the recovery room in stable condition. At the end of the case all counts were correct. LUCHO LORD MD Apr 07, 2016 09:21
[2016-04-07] MEDS ORDERED: MORPHINE SULFATE 4 MG/ML DISP.SYRIN. IV PRN (10:00)
[2016-04-07] MEDS ORDERED: HYDROMORPHONE 2 MG/ML VIAL. IV PRN (10:00)
[2016-04-07] MEDS ORDERED: MEPERIDINE PF 25 MG/ML VIAL. IV PRN (10:00)
[2016-04-07] MEDS ORDERED: DIPHENHYDRAMINE 50 MG/ML VIAL IV PRN (10:00)
[2016-04-07] MEDS ORDERED: FENTANYL PF 100 MCG/2 ML VIAL. IV PRN (10:00)
[2016-04-07] MEDS ORDERED: PROCHLORPERAZINE 10 MG/2 ML VIAL. IV PRN (10:00)
[2016-04-07] MEDS: METOPROLOL TART IMMED RELEASE 25 MG TABLET PO SCH ×2 (10:20→21:32)
[2016-04-07] MEDS: AMLODIPINE BESYLATE 10 MG TABLET PO SCH (10:20)
[2016-04-07] MEDS: OXYCODONE/APAP 10/325 TABLET. PO SCH ×3 (10:21→22:28)
[2016-04-07] MEDS: GABAPENTIN 300 MG CAPSULE. PO SCH ×2 (10:21→21:31)
[2016-04-07] MEDS: NICOTINE 21MG PATCH. TD SCH (10:23)
[2016-04-07] MEDS: PANTOPRAZOLE 40 MG TABLET. PO SCH (10:23)
[2016-04-07] MEDS: FLUCONAZOLE 100MG/50ML PREMIX 50 ML IV SCH (10:24)
[2016-04-07] MEDS ORDERED: FUROSEMIDE 40 MG/4 ML VIAL IVP ONE (11:15)
--- NOTE | 2016-04-07 13:50 | PDOC ---
Infectious Disease Note Subjective Subjective s/p I and D of abscess earlier Comfortable at the moment ROS ROS GEN: Denies fevers, chills, sweats CV: Denies chest pain RESP: Denies shortness of air, cough GI: Denies n/v/d Vital Sign Vital Signs Vital Signs Date Time Temp Pulse Resp B/P Pulse Ox O2 Delivery O2 Flow Rate FiO2 04/07/16 12:58 16 94 Room Air 04/07/16 11:21 2.0 04/07/16 10:20 99 136/95 04/07/16 09:47 97.8 97.8 Physical Exam PHYSICAL EXAM GENERAL: Alert, watching TV, social LUNGS: Clear to auscultation. HEART: S1, S2. ABDOMEN: Soft, nontender EXTREMITIES: No clubbing, cyanosis or gross edema. SKIN: without rash. tattoos. Right buttocks post-op dressing. NEUROLOGIC: Alert, oriented x 3. FLOREZ Port-a-cath. clean Labs Lab Laboratory Tests Test 04/06/16 17:31 04/06/16 18:30 04/06/16 20:22 04/06/16 22:20 Glucose (Fingerstick) 112mg/dL (70-99) 113mg/dL (70-99) 179mg/dL (70-99) Reticulocyte Count (auto) 0.8% (0.5-2.5) Lactic Acid Level 0.6mmol/L (0.4-2.0) Uric Acid 4.1mg/dL (2.6-6.0) Iron Level 23ug/dL (50-170) Total Iron Binding Capacity 164ug/dL (250-450) Iron Saturation 14% (15-34) Ferritin 31ng/mL (8-252) Creatine Kinase 162U/L (26-192) Vitamin B12 Level 657pg/mL (211-946) Test 04/07/16 06:30 04/07/16 08:03 04/07/16 08:30 04/07/16 09:20 White Blood Count 9.2x10^3/uL (4.0-11.0) Red Blood Count 2.84x10^6/uL (3.50-5.40) Hemoglobin 8.4g/dL (12.0-15.5) Hematocrit 25.9% (36.0-47.0) Mean Corpuscular Volume 91fL (79-100) Mean Corpuscular Hemoglobin 30pg (25-35) Mean Corpuscular Hemoglobin Concent 32g/dL (31-37) Red Cell Distribution Width 15.6% (11.5-14.5) Platelet Count 303x10^3/uL (140-400) Neutrophils (%) (Auto) 62% (31-73) Lymphocytes (%) (Auto) 23% (24-48) Monocytes (%) (Auto) 10% (0-9) Eosinophils (%) (Auto) 4% (0-3) Basophils (%) (Auto) 1% (0-3) Neutrophils # (Auto) 5.7x10^3uL (1.8-7.7) Lymphocytes # (Auto) 2.1x10^3/uL (1.0-4.8) Monocytes # (Auto) 0.9x10^3/uL (0.0-1.1) Eosinophils # (Auto) 0.4x10^3/uL (0.0-0.7) Basophils # (Auto) 0.1x10^3/uL (0.0-0.2) Sodium Level 145mmol/L (136-145) Potassium Level 4.7mmol/L (3.5-5.1) Chloride Level 112mmol/L (98-107) Carbon Dioxide Level 26mmol/L (21-32) Anion Gap 7 (6-14) Blood Urea Nitrogen 14mg/dL (7-20) Creatinine 1.4mg/dL (0.6-1.0) Estimated GFR (Cockcroft-Gault) 53.4 BUN/Creatinine Ratio 10 (6-20) Glucose Level 168mg/dL (70-99) Calcium Level 8.3mg/dL (8.5-10.1) Phosphorus Level 2.6mg/dL (2.6-4.7) Magnesium Level 2.3mg/dL (1.8-2.4) Iron Level 20ug/dL (50-170) Total Iron Binding Capacity 175ug/dL (250-450) Iron Saturation 11% (15-34) Ferritin 30ng/mL (8-252) Total Bilirubin 0.2mg/dL (0.2-1.0) Aspartate Amino Transf (AST/SGOT) 24U/L (15-37) Alanine Aminotransferase (ALT/SGPT) 47U/L (14-59) Alkaline Phosphatase 106U/L (46-116) Total Protein 6.5g/dL (6.4-8.2) Albumin 2.2g/dL (3.4-5.0) Albumin/Globulin Ratio 0.5 (1.0-1.7) Glucose (Fingerstick) 165mg/dL (70-99) 164mg/dL (70-99) Urine Test Negative (NEG) Test 04/07/16 11:50 Glucose (Fingerstick) 266mg/dL (70-99) Objective Assessment Right Buttock abscess. s/p I and D, 04/07. Intra-op cx pending Leukocytosis, improved Anemia. s/p PRBCs Substance abuse INOCENCIA DM ? Personality Disorder Plan Plan of Care Cont Zyvox, Zosyn and fluconazole f/u am labs and cultures Supportive care Attending Co-Sign Attending Co-Sign The patient was seen and interviewed as well as examined at the bedside. The chart was reviewed. The case was discussed. Agree with the plan of care. JIMENA QUEVEDO APRN Apr 07, 2016 13:50 PAL RIOS MD Apr 07, 2016 14:13
[2016-04-07 14:14] LABS: PTH INTACT 66 pg/mL (15-65)
[2016-04-07 20:09] LABS: HEP A IGM ABDY Negative (Negative); HEP B SURFACE ABDY Non Reactive (.)
[2016-04-07] MEDS: ATORVASTATIN CALCIUM 10 MG TABLET. PO SCH (21:32)
[2016-04-07] MEDS: TAMSULOSIN 0.4 MG CAP.ER.24H. PO SCH (21:40)
[2016-04-08] MEDS: HYDROMORPHONE 2 MG/ML VIAL. IV PRN ×6 (01:38→20:06)
--- NOTE | 2016-04-08 02:13 | PN ---
DATE: 04/07/2016 SUBJECTIVE: The patient is sitting on the edge of the bed. She just came from the recovery room after incision and drainage of her right gluteal abscess that was done this morning. The incision was made in the fluctuant area where immediate return of a small amount of purulent fluid. Cultures of the fluid were obtained and sent to Microbiology. The incision was extended some to facilitate drainage. Digital probing was then performed to free up any loculation. The entire abscess cavity was then irrigated with sterile saline and packed with sterile gauze. When I questioned her, she is complaining of fluid retention. She has markedly swollen lower extremities and also pain and pressure in her right big toe, what was seemed to be pus coming out under her right big toenail. PHYSICAL EXAMINATION: GENERAL: When I examined her, she looked pale, but not jaundiced, cyanosed. No thyromegaly. No jugular venous distension. No limb edema. VITAL SIGNS: Her heart rate was 99, blood pressure was 136/95, temperature was 97.8, respiratory rate was 15 and oxygen saturation was 94% on 2 liters of oxygen. HEAD, EYES, EARS, NOSE AND THROAT: Showed normocephalic, atraumatic. NECK: Supple. HEART: Showed normal first and second heart sounds with no gallop, rub or murmur. CHEST: Clear to auscultation. No crepitation or rhonchi. ABDOMEN: Distended, soft, nontender. She has an indwelling Michel catheter. NEUROLOGIC: She is awake, alert, responding appropriately. Cranial nerves intact. She moves all extremities without difficulty. LABORATORY DATA: Her intake over the last 24 hours was 1650, output was 1600. Her lab work this morning showed a serum sodium of 145, potassium 4.7, chloride 112, bicarbonate 26, anion gap of 7, BUN 14, creatinine 1.4. Estimated GFR was 53 mL per minute. Her glucose 168, calcium was 8.3, phosphorus 2.6, magnesium was 2.3. Her serum iron was 20. Total iron binding capacity was low at 175. Percent saturation was 11 and ferritin was 30. Total bilirubin, AST, ALT, alkaline phosphatase were normal. Total protein was 6.5, albumin 2.2. Her white cell count was 9200, hemoglobin 8.4, hematocrit 25.9, MCV 91, and platelet count of 303,000. ASSESSMENT: 1. Right gluteal abscess, status post incision and drainage. 2. Anemia, status post blood transfusion. 3. [id number]-nkezoxy kidney injury. 4. 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 5. Probably osteomyelitis of her right big toe. PLAN: My plan is to discontinue all IV fluid and she will be given 40 mg of IV Lasix. Continue in the meanwhile with IV Zosyn and Zyvox. X-ray of her right big toe and possible bone scan. ETHAN LAW MD DR: LEXIS/indira JOB#: [id number] / [id number]
[2016-04-08 03:00] VITALS: BP 140/87
[2016-04-08] MEDS: PIPERACILLIN/TAZOBACTAM 3.375 GM in IV NORMAL SALINE 50ML 50 ML IV SCH ×5 (05:42→17:30)
[2016-04-08] MEDS: PANTOPRAZOLE 40 MG TABLET. PO SCH (05:58)
[2016-04-08 06:30] LABS: BASO # 0.1 x10^3/uL (0.0-0.2); BASO % 1 % (0-3); EOS % 3 % (0-3); HEMATOCRIT 25.6 % (36.0-47.0); HEMOGLOBIN 8.3 g/dL (12.0-15.5); LYMPH % 19 % (24-48); MEAN CORPUSCULAR HEMOGLOBIN 30 pg (25-35); MEAN CORPUSCULAR HGB CONC 32 g/dL (31-37); MEAN CORPUSCULAR VOLUME 92 fL (79-100); MONO % 11 % (0-9); NEUT % 67 % (31-73); PLATELET COUNT 332 x10^3/uL (140-400); RED BLOOD COUNT 2.79 x10^6/uL (3.50-5.40); RED CELL DISTRIBUTION WIDTH 15.1 % (11.5-14.5); WHITE BLOOD COUNT 10.3 x10^3/uL (4.0-11.0)
[2016-04-08 06:37] LABS: ALBUMIN 2.4 g/dL (3.4-5.0); CALCIUM 8.5 mg/dL (8.5-10.1); CREATININE 1.6 mg/dL (0.6-1.0); GFR 45.8; MAGNESIUM 1.9 mg/dL (1.8-2.4); POTASSIUM 4.7 mmol/L (3.5-5.1)
[2016-04-08 07:10] VITALS: BP 160/105
--- NOTE | 2016-04-08 07:19 | RAD ---
Right great toe, 3 views, 04/07/2016: History: Infection, possible osteomyelitis No fracture or destructive bony lesion is seen. Arterial calcifications are noted. IMPRESSION: No acute bony abnormality is detected.
[2016-04-08] MEDS: ONDANSETRON PF 4 MG/2 ML VIAL. IV PRN (08:05)
[2016-04-08] MEDS: GABAPENTIN 300 MG CAPSULE. PO SCH ×2 (09:04→20:03)
[2016-04-08] MEDS: OXYCODONE/APAP 10/325 TABLET. PO SCH ×3 (09:05→21:16)
[2016-04-08] MEDS: AMLODIPINE BESYLATE 10 MG TABLET PO SCH (09:05)
[2016-04-08] MEDS: METOPROLOL TART IMMED RELEASE 25 MG TABLET PO SCH ×2 (09:05→20:05)
[2016-04-08] MEDS: NICOTINE 21MG PATCH. TD SCH (09:06)
[2016-04-08] MEDS: INSULIN DETEMIR 300 UNITS/3 ML INSULN.PEN. SQ SCH ×2 (09:18→21:31)
[2016-04-08] MEDS: INSULIN ASPART 300 UNITS/3 ML INSULN.PEN SQ SCH ×3 (09:20→17:00)
--- NOTE | 2016-04-08 09:45 | PDOC ---
SHAUNNA SIDHU POURER BUGGY LADLE 04/08/16 0944: SURGICAL PROGRESS NOTE Subjective sitting up in chair still pain to buttock Vital Signs Vital Signs Date Time Temp Pulse Resp B/P Pulse Ox O2 Delivery O2 Flow Rate FiO2 04/08/16 09:05 114 160/105 04/08/16 09:05 18 91 Room Air 2.0 04/08/16 07:10 98.6 98.6 I&O Intake and Output 04/08/16 07:00 Intake Total 1750 ml Output Total 1450 ml Balance 300 ml Intake Oral 1550 ml IV Total 200 ml Output Urine Total 1450 ml # Bowel Movements 3 General: Alert, Oriented X3, Cooperative, No acute distress Skin: Other (right gluteal wound clean, some induration surrounding wound edges ) Labs Laboratory Tests Test 04/06/16 11:45 04/06/16 17:31 04/06/16 18:30 04/06/16 20:22 Glucose (Fingerstick) 259mg/dL (70-99) 112mg/dL (70-99) 113mg/dL (70-99) Reticulocyte Count (auto) 0.8% (0.5-2.5) Estimated GFR (Non- 52 (>59) Lactic Acid Level 0.6mmol/L (0.4-2.0) Uric Acid 4.1mg/dL (2.6-6.0) Iron Level 23ug/dL (50-170) Total Iron Binding Capacity 164ug/dL (250-450) Iron Saturation 14% (15-34) Ferritin 31ng/mL (8-252) Creatine Kinase 162U/L (26-192) EGFR 60 (>59) Vitamin B12 Level 657pg/mL (211-946) PTH (Intact) Specimen Description Comment (.) Parathyroid Hormone (Intact) 66pg/mL (15-65) Calcium (PTH Intact) 7.8mg/dL (8.7-10.2) Creatinine (PTH Intact) 1.36mg/dL (0.57-1.00) Phosphorus (PTH Intact) 2.5mg/dL (2.5-4.5) Hepatitis A IgM Antibody Negative (Negative) Hepatitis B Surface Antigen Negative (Negative) Hepatitis B Surface Antibody Non reactive (.) Hepatitis B Core Total Antibody Negative (Negative) Hepatitis B Core IgM Antibody Negative (Negative) Hepatitis C Antibody 0.2s/co ratio (0.0-0.9) Test 04/06/16 22:20 04/07/16 06:30 04/07/16 08:03 04/07/16 08:30 Glucose (Fingerstick) 179mg/dL (70-99) 165mg/dL (70-99) White Blood Count 9.2x10^3/uL (4.0-11.0) Red Blood Count 2.84x10^6/uL (3.50-5.40) Hemoglobin 8.4g/dL (12.0-15.5) Hematocrit 25.9% (36.0-47.0) Mean Corpuscular Volume 91fL (79-100) Mean Corpuscular Hemoglobin 30pg (25-35) Mean Corpuscular Hemoglobin Concent 32g/dL (31-37) Red Cell Distribution Width 15.6% (11.5-14.5) Platelet Count 303x10^3/uL (140-400) Neutrophils (%) (Auto) 62% (31-73) Lymphocytes (%) (Auto) 23% (24-48) Monocytes (%) (Auto) 10% (0-9) Eosinophils (%) (Auto) 4% (0-3) Basophils (%) (Auto) 1% (0-3) Neutrophils # (Auto) 5.7x10^3uL (1.8-7.7) Lymphocytes # (Auto) 2.1x10^3/uL (1.0-4.8) Monocytes # (Auto) 0.9x10^3/uL (0.0-1.1) Eosinophils # (Auto) 0.4x10^3/uL (0.0-0.7) Basophils # (Auto) 0.1x10^3/uL (0.0-0.2) Sodium Level 145mmol/L (136-145) Potassium Level 4.7mmol/L (3.5-5.1) Chloride Level 112mmol/L (98-107) Carbon Dioxide Level 26mmol/L (21-32) Anion Gap 7 (6-14) Blood Urea Nitrogen 14mg/dL (7-20) Creatinine 1.4mg/dL (0.6-1.0) Estimated GFR (Cockcroft-Gault) 53.4 BUN/Creatinine Ratio 10 (6-20) Glucose Level 168mg/dL (70-99) Calcium Level 8.3mg/dL (8.5-10.1) Phosphorus Level 2.6mg/dL (2.6-4.7) Magnesium Level 2.3mg/dL (1.8-2.4) Iron Level 20ug/dL (50-170) Total Iron Binding Capacity 175ug/dL (250-450) Iron Saturation 11% (15-34) Ferritin 30ng/mL (8-252) Total Bilirubin 0.2mg/dL (0.2-1.0) Aspartate Amino Transf (AST/SGOT) 24U/L (15-37) Alanine Aminotransferase (ALT/SGPT) 47U/L (14-59) Alkaline Phosphatase 106U/L (46-116) Total Protein 6.5g/dL (6.4-8.2) Albumin 2.2g/dL (3.4-5.0) Albumin/Globulin Ratio 0.5 (1.0-1.7) Urine Test Negative (NEG) Test 04/07/16 09:20 04/07/16 11:50 04/07/16 17:31 04/07/16 21:22 Glucose (Fingerstick) 164mg/dL (70-99) 266mg/dL (70-99) 288mg/dL (70-99) 228mg/dL (70-99) Test 04/08/16 06:10 04/08/16 07:23 White Blood Count 10.3x10^3/uL (4.0-11.0) Red Blood Count 2.79x10^6/uL (3.50-5.40) Hemoglobin 8.3g/dL (12.0-15.5) Hematocrit 25.6% (36.0-47.0) Mean Corpuscular Volume 92fL (79-100) Mean Corpuscular Hemoglobin 30pg (25-35) Mean Corpuscular Hemoglobin Concent 32g/dL (31-37) Red Cell Distribution Width 15.1% (11.5-14.5) Platelet Count 332x10^3/uL (140-400) Neutrophils (%) (Auto) 67% (31-73) Lymphocytes (%) (Auto) 19% (24-48) Monocytes (%) (Auto) 11% (0-9) Eosinophils (%) (Auto) 3% (0-3) Basophils (%) (Auto) 1% (0-3) Neutrophils # (Auto) 6.9x10^3uL (1.8-7.7) Lymphocytes # (Auto) 2.0x10^3/uL (1.0-4.8) Monocytes # (Auto) 1.1x10^3/uL (0.0-1.1) Eosinophils # (Auto) 0.3x10^3/uL (0.0-0.7) Basophils # (Auto) 0.1x10^3/uL (0.0-0.2) Sodium Level 140mmol/L (136-145) Potassium Level 4.7mmol/L (3.5-5.1) Chloride Level 107mmol/L (98-107) Carbon Dioxide Level 27mmol/L (21-32) Anion Gap 6 (6-14) Blood Urea Nitrogen 16mg/dL (7-20) Creatinine 1.6mg/dL (0.6-1.0) Estimated GFR (Cockcroft-Gault) 45.8 Glucose Level 300mg/dL (70-99) Calcium Level 8.5mg/dL (8.5-10.1) Phosphorus Level 3.0mg/dL (2.6-4.7) Magnesium Level 1.9mg/dL (1.8-2.4) Albumin 2.4g/dL (3.4-5.0) Glucose (Fingerstick) 276mg/dL (70-99) Laboratory Tests Test 04/07/16 11:50 04/07/16 17:31 04/07/16 21:22 04/08/16 06:10 Glucose (Fingerstick) 266mg/dL (70-99) 288mg/dL (70-99) 228mg/dL (70-99) White Blood Count 10.3x10^3/uL (4.0-11.0) Red Blood Count 2.79x10^6/uL (3.50-5.40) Hemoglobin 8.3g/dL (12.0-15.5) Hematocrit 25.6% (36.0-47.0) Mean Corpuscular Volume 92fL (79-100) Mean Corpuscular Hemoglobin 30pg (25-35) Mean Corpuscular Hemoglobin Concent 32g/dL (31-37) Red Cell Distribution Width 15.1% (11.5-14.5) Platelet Count 332x10^3/uL (140-400) Neutrophils (%) (Auto) 67% (31-73) Lymphocytes (%) (Auto) 19% (24-48) Monocytes (%) (Auto) 11% (0-9) Eosinophils (%) (Auto) 3% (0-3) Basophils (%) (Auto) 1% (0-3) Neutrophils # (Auto) 6.9x10^3uL (1.8-7.7) Lymphocytes # (Auto) 2.0x10^3/uL (1.0-4.8) Monocytes # (Auto) 1.1x10^3/uL (0.0-1.1) Eosinophils # (Auto) 0.3x10^3/uL (0.0-0.7) Basophils # (Auto) 0.1x10^3/uL (0.0-0.2) Sodium Level 140mmol/L (136-145) Potassium Level 4.7mmol/L (3.5-5.1) Chloride Level 107mmol/L (98-107) Carbon Dioxide Level 27mmol/L (21-32) Anion Gap 6 (6-14) Blood Urea Nitrogen 16mg/dL (7-20) Creatinine 1.6mg/dL (0.6-1.0) Estimated GFR (Cockcroft-Gault) 45.8 Glucose Level 300mg/dL (70-99) Calcium Level 8.5mg/dL (8.5-10.1) Phosphorus Level 3.0mg/dL (2.6-4.7) Magnesium Level 1.9mg/dL (1.8-2.4) Albumin 2.4g/dL (3.4-5.0) Test 04/08/16 07:23 Glucose (Fingerstick) 276mg/dL (70-99) Assessment/Plan s/p I&D gluteal abscess wound care, wound consult abx per ID Problems: LUCHO LORD MD 04/08/16 1008: SURGICAL PROGRESS NOTE Assessment/Plan Agree with above; can FU in wound care center Problems: SHAUNNA SIDHU APRN Apr 08, 2016 09:44 LUCHO LORD MD Apr 08, 2016 10:08
--- NOTE | 2016-04-08 10:00 | PDOC ---
Infectious Disease Note Subjective Subjective C/o weight gain with fluid I and D site clean Concerned about toe nail ROS ROS GEN: Denies fevers, chills, sweats HEENT: Denies blurred vision, sore throat CV: Denies chest pain RESP: Denies shortness of air, cough GI: Denies n/v/d NEURO: Denies confusion, dizziness MSK: Denies weakness, joint pain/swelling Vital Sign Vital Signs Vital Signs Date Time Temp Pulse Resp B/P Pulse Ox O2 Delivery O2 Flow Rate FiO2 04/08/16 09:05 114 160/105 04/08/16 09:05 18 91 Room Air 2.0 04/08/16 07:10 98.6 98.6 Physical Exam PHYSICAL EXAM GENERAL: NAD, Alert,coop HEENT: PERRL, OC/OP- clear NECK: Supple, no JVD, no LN LUNGS: Clear HEART: S1S2, no gallop, no murmur ABD: Soft, NT, no organomegaly, no rebound, obese Juan EXT: 1 - 2 plus edema, no cyanosis. Toe partially torn off but area clean. 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, oriented x 3, no focal neurologic deficit SKIN: No rash IV: ok Labs Lab Laboratory Tests Test 04/07/16 11:50 04/07/16 17:31 04/07/16 21:22 04/08/16 06:10 Glucose (Fingerstick) 266mg/dL (70-99) 288mg/dL (70-99) 228mg/dL (70-99) White Blood Count 10.3x10^3/uL (4.0-11.0) Red Blood Count 2.79x10^6/uL (3.50-5.40) Hemoglobin 8.3g/dL (12.0-15.5) Hematocrit 25.6% (36.0-47.0) Mean Corpuscular Volume 92fL (79-100) Mean Corpuscular Hemoglobin 30pg (25-35) Mean Corpuscular Hemoglobin Concent 32g/dL (31-37) Red Cell Distribution Width 15.1% (11.5-14.5) Platelet Count 332x10^3/uL (140-400) Neutrophils (%) (Auto) 67% (31-73) Lymphocytes (%) (Auto) 19% (24-48) Monocytes (%) (Auto) 11% (0-9) Eosinophils (%) (Auto) 3% (0-3) Basophils (%) (Auto) 1% (0-3) Neutrophils # (Auto) 6.9x10^3uL (1.8-7.7) Lymphocytes # (Auto) 2.0x10^3/uL (1.0-4.8) Monocytes # (Auto) 1.1x10^3/uL (0.0-1.1) Eosinophils # (Auto) 0.3x10^3/uL (0.0-0.7) Basophils # (Auto) 0.1x10^3/uL (0.0-0.2) Sodium Level 140mmol/L (136-145) Potassium Level 4.7mmol/L (3.5-5.1) Chloride Level 107mmol/L (98-107) Carbon Dioxide Level 27mmol/L (21-32) Anion Gap 6 (6-14) Blood Urea Nitrogen 16mg/dL (7-20) Creatinine 1.6mg/dL (0.6-1.0) Estimated GFR (Cockcroft-Gault) 45.8 Glucose Level 300mg/dL (70-99) Calcium Level 8.5mg/dL (8.5-10.1) Phosphorus Level 3.0mg/dL (2.6-4.7) Magnesium Level 1.9mg/dL (1.8-2.4) Albumin 2.4g/dL (3.4-5.0) Test 04/08/16 07:23 Glucose (Fingerstick) 276mg/dL (70-99) Objective Assessment Right Buttock abscess s/p I and D 04/07 cult pending Leukocytosis Anemia Substance abuse INOCENCIA - does self cath DM ? Personality Disorder Plan Plan of Care Cont Zyvox but change to po, Zosyn and fluconazole to po. F/u cults but change to all po 04/09 if stable for d/c home ? Needs juan removed and to resume straight cath Podiatry eval f/u am labs and cultures Supportive care PAL RIOS MD Apr 08, 2016 10:00
[2016-04-08 10:50] VITALS: BP 145/103
[2016-04-08] MEDS: FLUCONAZOLE 100 MG TABLET. PO SCH (11:20)
--- NOTE | 2016-04-08 12:04 | PDOC ---
SUBJECTIVE ROS INOCENCIA/ CKD III Doing and feeling a little better overall x for significant bloating CVS: no Orthopnea, no CP RESP: no SOB, no FLORES GI: min Nausea, no Vomiting : no Dysuria, no Urgency OBJECTIVE Vital Signs Vital Signs Date Time Temp Pulse Resp B/P Pulse Ox O2 Delivery O2 Flow Rate FiO2 04/08/16 11:20 18 96 Room Air 2.0 04/08/16 10:50 97.7 105 145/103 97.7 I & 0 Intake and Output 04/08/16 07:00 Intake Total 1750 ml Output Total 1450 ml Balance 300 ml Intake Oral 1550 ml IV Total 200 ml Output Urine Total 1450 ml # Bowel Movements 3 PHYSICAL EXAM Physical Exam General Appearance: Awake Alert Oriented x 3 In min Distress; much m ore cheerful today (cousin in room) Eyes: VIsion Unchanged Conjunctiva Normal EN: No EN Drainage Mucous Memb. moist Neck: no JVD min JVP Supple no Thyromegaly CVS: S1 S2 ? Murmur No Gallop No Rub +2 Edema Resp: rare Rales no Rhonchi no Acc. Muscle use GI: BS +ve NO Bruit Non Tender + Distended (? Ascites) : no CVA tenderness; no Suprapubic Tenderness SKIN: no Rashes Breast Exam deferred; ? Discoloration of Lt great toe Mu.Sk: Decreased ROM in foot no Muscle Atrophy; Rt Great toe amputation Heme: Unable to palpate Obvious LAD no palp Splenomegaly NEURO: dec Strength in foot Cranial Nerves II - XII grossly intact Psych: not currently Depressed no Active hallucination Assessment & Plan ARF: pt is not aware of same - suspect due to ongoing infection. Current FLuid and E-lyte status does not necessitate emergent need for Dialysis. Will re-evaluate for Dialysis in am - antiicpate rise i ncreat closer to 2-2.5 once Euvolemic Abd distention - ? Ascites - abd US since no renal US avail. Edema - r/o nephrotic syndrome - checking 24-hr URine; Start Lasix gtt CKD III/ IV underlying cannot be ruled out ? PVD - await wound care eval - she may need vasc Surgery to see also Low Alb - IV Albumin as ordered with Lasix gtt Neurogenic Bladder with Back Pain - renal us to R/o [facility] - juan in place already sev Anemia: Start Epogen. May need IV Fe too once fluid status is optimized HTN: Current BP meds reviewed. See orders for changes. Gluteal abscess - s/p I and D Discussed Plan of Care and prognosis etc. at length with family (cousin) and with Dr Sal COMMENT/RELEVANT DATA Meds Current Medications Medications (Trade) Dose Ordered Sig/Ju Start Time Stop Time Status Last Admin Dose Admin Acetaminophen (Tylenol) 650 mg PRN Q4HRS PRN 04/05/16 19:45 Amlodipine Besylate (Norvasc) 10 mg DAILY 04/06/16 09:00 04/08/16 09:05 10 MG Atorvastatin Calcium (Lipitor) 10 mg QHS 04/06/16 21:00 04/07/16 21:32 10 MG Dextrose 12.5 gm 12.5 gm PRN Q15MIN PRN 04/05/16 22:30 Diphenhydramine HCl (Benadryl) 12.5 mg PRN Q2HR PRN 04/07/16 10:00 04/08/16 09:59 DC Famotidine (Pepcid) 20 mg STK-MED ONCE 04/07/16 08:26 04/07/16 08:27 DC Fentanyl Citrate (Fentanyl 2ml Vial) 50 mcg PRN Q5MIN PRN 04/07/16 10:00 04/08/16 09:59 DC Fentanyl Citrate (Fentanyl 5ml Vial) 250 mcg STK-MED ONCE 04/07/16 08:25 04/07/16 08:26 DC Fluconazole (Diflucan) 100 mg DAILY 04/08/16 10:00 04/08/16 11:20 100 MG Fluconazole/ Sodium Chloride (Diflucan 100mg/ 50ml Premix) 50 ml @ 100 mls/hr Q24H 04/06/16 11:00 04/08/16 09:57 DC 04/07/16 10:24 100 MLS/HR Furosemide (Lasix) 40 mg 1X ONCE 04/07/16 11:15 04/07/16 11:16 DC 04/07/16 11:31 40 MG Gabapentin (Neurontin) 900 mg BID 04/06/16 09:00 04/08/16 09:04 900 MG Hydromorphone HCl (Dilaudid) 0.4 mg PRN Q10MIN PRN 04/07/16 10:00 04/08/16 09:59 DC Hydromorphone HCl 1 mg 1 mg PRN Q3HRS PRN 04/05/16 20:00 04/08/16 11:20 1 MG Insulin Aspart (Novolog) 0-7 UNITS PRN QID 04/05/16 22:30 UNV Insulin Aspart 0-9 UNITS TIDWMEALS 04/06/16 08:00 04/08/16 09:20 7 UNITS Insulin Detemir (Levemir) 20 units BID 04/06/16 09:00 04/08/16 09:18 20 UNITS Lactated Ringer's (Iv Lactated Ringers) 1,000 ml @ 75 mls/hr 1X ONCE 04/07/16 09:00 04/07/16 22:19 DC 04/07/16 08:30 75 MLS/HR Lidocaine HCl 100 mg STK-MED ONCE 04/07/16 08:25 04/07/16 08:26 DC Lidocaine/ Epinephrine (Xylocaine 1%-Epi 1:100,000) 20 ml STK-MED ONCE 04/07/16 07:27 04/07/16 07:28 DC Linezolid (Zyvox Premix) 300 ml @ 300 mls/hr Q12HR 04/05/16 21:00 04/08/16 09:57 DC 04/07/16 21:41 300 MLS/HR Linezolid (Zyvox) 600 mg BID 04/08/16 21:00 Magnesium Sulfate/ Dextrose (Magnesium Sulfate PREMIX 2GM) 50 ml @ 25 mls/hr PRN DAILY PRN 04/06/16 16:00 Meperidine HCl (Demerol) 12.5 mg PRN Q5MIN PRN 04/07/16 10:00 04/08/16 09:59 DC Metoclopramide HCl 10 mg 10 mg STK-MED ONCE 04/07/16 08:26 04/07/16 08:27 DC Metoprolol Tartrate (Lopressor) 25 mg BID 04/06/16 09:00 04/08/16 09:05 25 MG Morphine Sulfate 4 mg PRN Q10MIN PRN 04/07/16 10:00 04/08/16 09:59 DC Nicotine (Nicoderm Cq 21mg) 1 patch DAILY 04/06/16 09:00 04/08/16 09:06 1 PATCH Ondansetron HCl (Zofran) 4 mg PRN Q6HRS PRN 04/05/16 22:30 04/08/16 08:05 4 MG Oxycodone/ Acetaminophen (Percocet 10/325) 2 tab TID 04/05/16 21:00 04/08/16 09:05 2 TAB Pantoprazole Sodium 40 mg 40 mg DAILYAC 04/06/16 07:30 04/08/16 05:58 40 MG Piperacillin Sod/ Tazobactam Sod/ Sodium Chloride (Zosyn/Iv Sodium Chloride 0.9% 50ml) 50 ml @ 100 mls/hr Q6HRS 04/06/16 00:00 04/08/16 05:42 100 MLS/HR Prochlorperazine Edisylate (Compazine) 5 mg PRN Q6HRS PRN 04/07/16 10:00 04/08/16 09:59 DC Promethazine HCl (Phenergan) 12.5 mg PRN BID PRN 04/05/16 22:30 Propofol 20 ml @ As Directed STK-MED ONCE 04/07/16 08:26 04/07/16 08:27 DC Sevoflurane (Ultane) 15 ml STK-MED ONCE 04/07/16 08:25 04/07/16 08:26 DC Tamsulosin HCl (Flomax) 0.4 mg QHS 04/06/16 21:00 04/07/16 21:40 0.4 MG Lab Laboratory Tests Test 04/07/16 17:31 04/07/16 21:22 04/08/16 06:10 04/08/16 07:23 Glucose (Fingerstick) 288mg/dL (70-99) 228mg/dL (70-99) 276mg/dL (70-99) White Blood Count 10.3x10^3/uL (4.0-11.0) Red Blood Count 2.79x10^6/uL (3.50-5.40) Hemoglobin 8.3g/dL (12.0-15.5) Hematocrit 25.6% (36.0-47.0) Mean Corpuscular Volume 92fL (79-100) Mean Corpuscular Hemoglobin 30pg (25-35) Mean Corpuscular Hemoglobin Concent 32g/dL (31-37) Red Cell Distribution Width 15.1% (11.5-14.5) Platelet Count 332x10^3/uL (140-400) Neutrophils (%) (Auto) 67% (31-73) Lymphocytes (%) (Auto) 19% (24-48) Monocytes (%) (Auto) 11% (0-9) Eosinophils (%) (Auto) 3% (0-3) Basophils (%) (Auto) 1% (0-3) Neutrophils # (Auto) 6.9x10^3uL (1.8-7.7) Lymphocytes # (Auto) 2.0x10^3/uL (1.0-4.8) Monocytes # (Auto) 1.1x10^3/uL (0.0-1.1) Eosinophils # (Auto) 0.3x10^3/uL (0.0-0.7) Basophils # (Auto) 0.1x10^3/uL (0.0-0.2) Sodium Level 140mmol/L (136-145) Potassium Level 4.7mmol/L (3.5-5.1) Chloride Level 107mmol/L (98-107) Carbon Dioxide Level 27mmol/L (21-32) Anion Gap 6 (6-14) Blood Urea Nitrogen 16mg/dL (7-20) Creatinine 1.6mg/dL (0.6-1.0) Estimated GFR (Cockcroft-Gault) 45.8 Glucose Level 300mg/dL (70-99) Calcium Level 8.5mg/dL (8.5-10.1) Phosphorus Level 3.0mg/dL (2.6-4.7) Magnesium Level 1.9mg/dL (1.8-2.4) Albumin 2.4g/dL (3.4-5.0) HUGO ZEE MD Apr 08, 2016 12:04
[2016-04-08] MEDS: FUROSEMIDE INJ 100 MG in IV NORMAL SALINE 100ML 100 ML IV PRN (13:08)
[2016-04-08] MEDS ORDERED: FUROSEMIDE 40 MG/4 ML VIAL IVP SCH (14:00)
[2016-04-08] MEDS: ALBUMIN HUMAN 25% 100 ML IV SCH ×2 (14:04→20:06)
[2016-04-08 14:50] VITALS: BP 112/62
[2016-04-08 19:20] VITALS: BP 137/94
[2016-04-08] MEDS: TAMSULOSIN 0.4 MG CAP.ER.24H. PO SCH (20:03)
[2016-04-08] MEDS: LINEZOLID 600 MG TABLET PO SCH (20:03)
[2016-04-08] MEDS: ATORVASTATIN CALCIUM 10 MG TABLET. PO SCH (20:03)
[2016-04-08 23:30] VITALS: BP 137/93
[2016-04-09] MEDS: PIPERACILLIN/TAZOBACTAM 3.375 GM in IV NORMAL SALINE 50ML 50 ML IV SCH ×2 (00:59→05:53)
[2016-04-09] MEDS: HYDROMORPHONE 2 MG/ML VIAL. IV PRN ×7 (01:00→21:09)
[2016-04-09] MEDS: ONDANSETRON PF 4 MG/2 ML VIAL. IV PRN ×2 (01:34→08:16)
[2016-04-09] MEDS: OXYCODONE/APAP 10/325 TABLET. PO PRN (03:18)
[2016-04-09] MEDS: PROMETHAZINE 12.5 MG TABLET. PO PRN (04:34)
[2016-04-09 05:08] LABS: HEMOGLOBIN 7.2 g/dL (12.0-15.5)
[2016-04-09 06:05] LABS: ALBUMIN 2.7 g/dL (3.4-5.0); CALCIUM 8.6 mg/dL (8.5-10.1); CREATININE 1.5 mg/dL (0.6-1.0); GFR 49.3; PHOSPHORUS 3.4 mg/dL (2.6-4.7); POTASSIUM 4.1 mmol/L (3.5-5.1)
[2016-04-09 06:17] LABS: PROTEIN 24 HR UR 895.4 mg/24 hr (30.0-150.0); TOTAL SERUM CREATININE 1.39 mg/dL (0.57-1.00); TOTAL URINE CREATININE 47.5 mg/dL (Not Estab.)
[2016-04-09 07:00] VITALS: BP 146/100
--- NOTE | 2016-04-09 07:44 | RAD ---
Abdominal ultrasound, 04/08/2016: History: Acute renal failure The gallbladder is small. Mild thickening of its davis is probably accentuated by its lack of distention. No gallstones are seen. No bile duct dilatation is evident. The liver is at the upper limits of normal in size measuring 19 cm in craniocaudad extent. No hepatic mass is seen. The pancreas was obscured by overlying bowel. The spleen is of normal size. No renal abnormality is detected. The upper abdominal aorta and inferior vena cava are unremarkable. Inferiorly the aorta was obscured by overlying bowel. Incidental note is made of a small amount of right-sided pleural fluid. IMPRESSION: 1. Contracted gallbladder without evidence of gallstones. 2. Borderline hepatomegaly. 3. Obscuration of the pancreas due to overlying bowel. 4. Small right pleural effusion.
[2016-04-09] MEDS: INSULIN ASPART 300 UNITS/3 ML INSULN.PEN SQ SCH ×3 (08:00→17:00)
--- NOTE | 2016-04-09 08:03 | PDOC ---
Infectious Disease Note Subjective Subjective Didn't sleep well but doing ok C/o weight gain with fluid I and D site clean Concerned about toe nail ROS ROS GEN: Denies fevers, chills, sweats HEENT: Denies blurred vision, sore throat CV: Denies chest pain RESP: Denies shortness of air, cough GI: Denies n/v/d NEURO: Denies confusion, dizziness MSK: Denies weakness, joint pain/swelling Vital Sign Vital Signs Vital Signs Date Time Temp Pulse Resp B/P Pulse Ox O2 Delivery O2 Flow Rate FiO2 04/09/16 03:00 20 04/08/16 23:30 98.5 102 137/93 91 Room Air 98.5 04/08/16 16:14 2.0 Physical Exam PHYSICAL EXAM GENERAL: NAD, Alert,coop HEENT: PERRL, OC/OP- clear NECK: Supple, no JVD, no LN LUNGS: Clear HEART: S1S2, no gallop, no murmur ABD: Soft, NT, no organomegaly, no rebound, obese Michel EXT: 1 - 2 plus edema, no cyanosis. Toe partially torn off but area clean. 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, oriented x 3, no focal neurologic deficit SKIN: No rash IV: port - clean Labs Lab Laboratory Tests Test 04/08/16 12:15 04/08/16 16:42 04/08/16 21:15 04/09/16 04:30 Glucose (Fingerstick) 98mg/dL (70-99) 137mg/dL (70-99) 256mg/dL (70-99) Hemoglobin 7.2g/dL (12.0-15.5) Hematocrit 22.0% (36.0-47.0) Sodium Level 146mmol/L (136-145) Potassium Level 4.1mmol/L (3.5-5.1) Chloride Level 110mmol/L (98-107) Carbon Dioxide Level 26mmol/L (21-32) Anion Gap 10 (6-14) Blood Urea Nitrogen 12mg/dL (7-20) Creatinine 1.5mg/dL (0.6-1.0) Estimated GFR (Cockcroft-Gault) 49.3 Glucose Level 158mg/dL (70-99) Calcium Level 8.6mg/dL (8.5-10.1) Phosphorus Level 3.4mg/dL (2.6-4.7) Magnesium Level 1.8mg/dL (1.8-2.4) Albumin 2.7g/dL (3.4-5.0) Objective Assessment Right Buttock abscess s/p I and D 04/07 cult pending Leukocytosis Anemia Substance abuse INOCENCIA - does self cath DM ? Personality Disorder Plan Plan of Care Cont Zyvox/fluconazole po. D/c Zosyn and begin Augmentin Probiotics f/u am labs and cultures Supportive care Local wound care PAL RIOS MD Apr 09, 2016 08:03
[2016-04-09] MEDS: LACTOBACILLUS ACIDOPH & BULGAR 1 TABLET. PO SCH ×4 (08:15→17:35)
[2016-04-09] MEDS: ALBUMIN HUMAN 25% 100 ML IV SCH ×3 (08:15→21:04)
[2016-04-09] MEDS: PANTOPRAZOLE 40 MG TABLET. PO SCH (08:16)
[2016-04-09] MEDS: AMLODIPINE BESYLATE 10 MG TABLET PO SCH (08:17)
[2016-04-09] MEDS: LINEZOLID 600 MG TABLET PO SCH ×2 (08:17→21:03)
[2016-04-09] MEDS: FLUCONAZOLE 100 MG TABLET. PO SCH (08:18)
[2016-04-09] MEDS: METOPROLOL TART IMMED RELEASE 25 MG TABLET PO SCH ×2 (08:18→21:04)
[2016-04-09] MEDS: GABAPENTIN 300 MG CAPSULE. PO SCH ×2 (08:18→21:03)
[2016-04-09] MEDS: NICOTINE 21MG PATCH. TD SCH (08:18)
--- NOTE | 2016-04-09 09:07 | PN ---
DATE: 04/08/2016 SUBJECTIVE: The patient is sitting on the edge of the bed comfortably in no apparent distress. Her main complaint is marked third spacing abdominal wall and both lower extremities. She has gained a lot of weight. However, stated the pain is much better controlled. Her H and H has stabilized after receiving 1 unit of blood and her hemoglobin today is 8.3, hematocrit 25.6. Her creatinine has risen up to 1.6 and her albumin was only 2.4, which obviously accounts for the marked third spacing. She probably has severe nephrotic syndrome and my plan is to start her on IV Lasix and ____ Human Albumin. PHYSICAL EXAMINATION: GENERAL: When I examined her this afternoon, she looked well. VITAL SIGNS: Heart rate of 105, blood pressure 145/103, temperature was 97.7, respiratory rate was 18 and oxygen saturation was 96% on 2 liters of oxygen. HEAD, EYES, EARS, NOSE AND THROAT: Showed normocephalic, atraumatic. NECK: Supple. HEART: Showed normal first and second heart sounds with no gallop, rub or murmur. CHEST: Clear to auscultation. No crepitation or rhonchi. ABDOMEN: Markedly distended, soft, nontender. No guarding or rigidity. No organomegaly. Hernial orifices intact. Bowel sounds normal. NEUROLOGIC: She was awake, alert, responding appropriately. Cranial nerves intact. She moves her extremities without difficulty. She ambulates without assistance or assistive devices. Her intake was ___, output was 1450. LABORATORY DATA: As of this morning, her serum sodium was 140, potassium 4.7, chloride 107, bicarbonate 27, anion gap of 6, BUN 16, creatinine 1.6, estimated GFR was 46 mL per minute. Her glucose was 300, calcium was 8.5, phosphorus 3, magnesium was 1.9 and albumin was 2.4. Her white cell count was 10,300, hemoglobin 8.3, hematocrit 25.6, MCV 92, and platelet count of ____. ASSESSMENT: 1. Right gluteal abscess, status post incision and drainage, much improved. 2. Anemia, status post blood transfusion. 3. Acute on chronic kidney injury. 4. 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 5. Severe hypoalbuminemia. 6. Third spacing and nephrotic syndrome. I recommended the patient keep the indwelling Michel catheter, was started on Human Albumin and IV Lasix and we will do that for 2 consecutive days and to follow her labs closely. ETHAN LAW MD DR: LEXIS/indira JOB#: [id number] / [id number]
[2016-04-09] MEDS: AMOXICILLIN/K CLAV 875/125MG TABLET. PO SCH ×2 (09:30→21:03)
[2016-04-09] MEDS: OXYCODONE/APAP 10/325 TABLET. PO SCH ×3 (09:30→21:03)
[2016-04-09] MEDS: INSULIN DETEMIR 300 UNITS/3 ML INSULN.PEN. SQ SCH ×2 (09:35→21:17)
[2016-04-09 11:00] VITALS: BP 145/92
[2016-04-09] MEDS: FUROSEMIDE INJ 100 MG in IV NORMAL SALINE 100ML 100 ML IV PRN (11:14)
[2016-04-09 15:00] VITALS: BP 148/107
--- NOTE | 2016-04-09 17:52 | PDOC ---
SUBJECTIVE ROS Dillan / Anasarca doing OK but wondering why she is so swollen CVS: no Orthopnea, no CP RESP: no SOB, no FLORES GI: no Nausea, no Vomiting : no Dysuria, no Urgency OBJECTIVE Vital Signs Vital Signs Date Time Temp Pulse Resp B/P Pulse Ox O2 Delivery O2 Flow Rate FiO2 04/09/16 17:35 19 91 Room Air 2.0 04/09/16 15:00 98.0 107 148/107 98.0 I & 0 Intake and Output 04/09/16 07:00 Intake Total 1580 ml Output Total 3750 ml Balance -2170 ml Intake Oral 1580 ml Output Urine Total 3750 ml # Voids 5 PHYSICAL EXAM Physical Exam General Appearance: Awake Alert Oriented x 3 In min Distress; much better mood then preop Eyes: VIsion Unchanged Conjunctiva Normal EN: No EN Drainage Mucous Memb. moist Neck: no JVD min JVP Supple no Thyromegaly CVS: S1 S2 ? Murmur No Gallop No Rub +2 Edema Resp: rare Rales no Rhonchi no Acc. Muscle use GI: BS +ve NO Bruit Non Tender + Distended (? Ascites) : no CVA tenderness; no Suprapubic Tenderness SKIN: no Rashes Breast Exam deferred; ? Discoloration of Lt great toe Mu.Sk: Decreased ROM in foot no Muscle Atrophy; Rt Great toe amputation Heme: Unable to palpate Obvious LAD no palp Splenomegaly NEURO: dec Strength in foot Cranial Nerves II - XII grossly intact Psych: not currently Depressed no Active hallucination Assessment & Plan ARF: pt is not aware of same - suspect due to ongoing infection. Current FLuid and E-lyte status does not necessitate emergent need for Dialysis. Will re-evaluate for Dialysis in am - anticipate rise i n creat closer to 2-2.5 once Euvolemic Abd distention - ? Ascites - abd US (does not mention same) - will check ECHO too. Current levels of Proteinuria does not explain current levels of edema / ansarca. ? Liver dysfunction Edema - non- nephrotic range proteinruia per 24-hr URine; ct Lasix gtt for -ve fluid balance. CKD III/ IV underlying cannot be ruled out Low Alb - IV Albumin as ordered with Lasix gtt Min ^ed Na - suspect due to lasix gtt and alb - watch trend - so will not water restrict for now Neurogenic Bladder - renal us -ve for [place] - juan in place already sev Anemia: Start Epogen. May need IV Fe too once fluid status is optimized HTN: Current BP meds reviewed. See orders for changes. Gluteal abscess - s/p I and D Discussed Plan of Care and prognosis etc. at length with Pt COMMENT/RELEVANT DATA Meds Current Medications Medications (Trade) Dose Ordered Sig/Ju Start Time Stop Time Status Last Admin Dose Admin Acetaminophen (Tylenol) 650 mg PRN Q4HRS PRN 04/05/16 19:45 Albumin Human 100 ml @ 100 mls/hr TID 04/08/16 14:00 04/09/16 13:44 100 MLS/HR Amlodipine Besylate (Norvasc) 10 mg DAILY 04/06/16 09:00 04/09/16 08:17 10 MG Amoxicillin/ Clavulanate Potassium (Augmentin 875/ 125mg) 1 tab BID 04/09/16 09:00 04/09/16 09:30 1 TAB Atorvastatin Calcium (Lipitor) 10 mg QHS 04/06/16 21:00 04/08/16 20:03 10 MG Dextrose 12.5 gm 12.5 gm PRN Q15MIN PRN 04/05/16 22:30 Diphenhydramine HCl (Benadryl) 12.5 mg PRN Q2HR PRN 04/07/16 10:00 04/08/16 09:59 DC Famotidine (Pepcid) 20 mg STK-MED ONCE 04/07/16 08:26 04/07/16 08:27 DC Fentanyl Citrate (Fentanyl 2ml Vial) 50 mcg PRN Q5MIN PRN 04/07/16 10:00 04/08/16 09:59 DC Fentanyl Citrate (Fentanyl 5ml Vial) 250 mcg STK-MED ONCE 04/07/16 08:25 04/07/16 08:26 DC Fluconazole (Diflucan) 100 mg DAILY 04/08/16 10:00 04/09/16 08:18 100 MG Fluconazole/ Sodium Chloride (Diflucan 100mg/ 50ml Premix) 50 ml @ 100 mls/hr Q24H 04/06/16 11:00 04/08/16 09:57 DC 04/07/16 10:24 100 MLS/HR Furosemide (Lasix) 40 mg 1X ONCE 04/07/16 11:15 04/07/16 11:16 DC 04/07/16 11:31 40 MG Furosemide 40 mg 40 mg [id number] 04/08/16 14:00 04/08/16 14:00 DC Furosemide/Sodium Chloride (Lasix Drip/Iv Sodium Chloride 0.9% 100ml) 100 ml @ 0 mls/hr CONT PRN 04/08/16 12:15 04/09/16 11:14 5 MLS/HR Gabapentin (Neurontin) 900 mg BID 04/06/16 09:00 04/09/16 08:18 900 MG Hydromorphone HCl (Dilaudid) 0.4 mg PRN Q10MIN PRN 04/07/16 10:00 04/08/16 09:59 DC Hydromorphone HCl 1 mg 1 mg PRN Q3HRS PRN 04/05/16 20:00 04/09/16 17:35 1 MG Insulin Aspart (Novolog) 0-7 UNITS PRN QID 04/05/16 22:30 UNV Insulin Aspart 0-9 UNITS TIDWMEALS 04/06/16 08:00 04/09/16 12:29 4 UNITS Insulin Detemir (Levemir) 20 units BID 04/06/16 09:00 04/09/16 09:35 20 UNITS Lactated Ringer's (Iv Lactated Ringers) 1,000 ml @ 75 mls/hr 1X ONCE 04/07/16 09:00 04/07/16 22:19 DC 04/07/16 08:30 75 MLS/HR Lactobacillus Acidophilus (Bacid, Brittany-Bid) 1 tab TIDWMEALS 04/09/16 08:15 04/09/16 17:35 1 TAB Lidocaine HCl 100 mg STK-MED ONCE 04/07/16 08:25 04/07/16 08:26 DC Lidocaine/ Epinephrine (Xylocaine 1%-Epi 1:100,000) 20 ml STK-MED ONCE 04/07/16 07:27 04/07/16 07:28 DC Linezolid (Zyvox Premix) 300 ml @ 300 mls/hr Q12HR 04/05/16 21:00 04/08/16 09:57 DC 04/07/16 21:41 300 MLS/HR Linezolid (Zyvox) 600 mg BID 04/08/16 21:00 04/09/16 08:17 600 MG Magnesium Sulfate/ Dextrose (Magnesium Sulfate PREMIX 2GM) 50 ml @ 25 mls/hr PRN DAILY PRN 04/06/16 16:00 Meperidine HCl (Demerol) 12.5 mg PRN Q5MIN PRN 04/07/16 10:00 04/08/16 09:59 DC Metoclopramide HCl 10 mg 10 mg STK-MED ONCE 04/07/16 08:26 04/07/16 08:27 DC Metoprolol Tartrate (Lopressor) 25 mg BID 04/06/16 09:00 04/09/16 08:18 25 MG Morphine Sulfate 4 mg PRN Q10MIN PRN 04/07/16 10:00 04/08/16 09:59 DC Nicotine (Nicoderm Cq 21mg) 1 patch DAILY 04/06/16 09:00 04/09/16 08:18 1 PATCH Ondansetron HCl (Zofran) 4 mg PRN Q6HRS PRN 04/05/16 22:30 04/09/16 08:16 4 MG Oxycodone/ Acetaminophen (Percocet 10/325) 2 tab TID 04/05/16 21:00 04/09/16 15:13 2 TAB Pantoprazole Sodium 40 mg 40 mg DAILYAC 04/06/16 07:30 04/09/16 08:16 40 MG Piperacillin Sod/ Tazobactam Sod/ Sodium Chloride (Zosyn/Iv Sodium Chloride 0.9% 50ml) 50 ml @ 100 mls/hr Q6HRS 04/06/16 00:00 04/09/16 08:02 DC 04/09/16 05:53 100 MLS/HR Prochlorperazine Edisylate (Compazine) 5 mg PRN Q6HRS PRN 04/07/16 10:00 04/08/16 09:59 DC Promethazine HCl (Phenergan) 12.5 mg PRN BID PRN 04/05/16 22:30 04/09/16 04:34 12.5 MG Propofol 20 ml @ As Directed STK-MED ONCE 04/07/16 08:26 04/07/16 08:27 DC Sevoflurane (Ultane) 15 ml STK-MED ONCE 04/07/16 08:25 04/07/16 08:26 DC Tamsulosin HCl (Flomax) 0.4 mg QHS 04/06/16 21:00 04/08/16 20:03 0.4 MG Lab Laboratory Tests Test 04/08/16 21:15 04/09/16 04:30 04/09/16 08:12 04/09/16 11:12 Glucose (Fingerstick) 256mg/dL (70-99) 109mg/dL (70-99) 229mg/dL (70-99) Hemoglobin 7.2g/dL (12.0-15.5) Hematocrit 22.0% (36.0-47.0) Sodium Level 146mmol/L (136-145) Potassium Level 4.1mmol/L (3.5-5.1) Chloride Level 110mmol/L (98-107) Carbon Dioxide Level 26mmol/L (21-32) Anion Gap 10 (6-14) Blood Urea Nitrogen 12mg/dL (7-20) Creatinine 1.5mg/dL (0.6-1.0) Estimated GFR (Cockcroft-Gault) 49.3 Glucose Level 158mg/dL (70-99) Calcium Level 8.6mg/dL (8.5-10.1) Phosphorus Level 3.4mg/dL (2.6-4.7) Magnesium Level 1.8mg/dL (1.8-2.4) Albumin 2.7g/dL (3.4-5.0) Test 04/09/16 16:58 Glucose (Fingerstick) 109mg/dL (70-99) HUGO ZEE MD Apr 09, 2016 17:52
[2016-04-09 19:00] VITALS: BP 134/106
[2016-04-09 20:00] VITALS: BP 130/100
[2016-04-09] MEDS: ATORVASTATIN CALCIUM 10 MG TABLET. PO SCH (21:03)
[2016-04-09] MEDS: TAMSULOSIN 0.4 MG CAP.ER.24H. PO SCH (21:05)
[2016-04-09 22:00] VITALS: BP 130/100
[2016-04-10] MEDS: ONDANSETRON PF 4 MG/2 ML VIAL. IV PRN ×2 (02:32→08:40)
[2016-04-10] MEDS: HYDROMORPHONE 2 MG/ML VIAL. IV PRN ×6 (02:33→22:52)
[2016-04-10 03:00] VITALS: BP 148/97
--- NOTE | 2016-04-10 05:15 | PN ---
DATE: 04/09/2016 SUBJECTIVE: The patient is sitting slightly propped up in bed, in no apparent distress. On questioning her, denied any complaint. She has generalized anasarca, is actually improving. She was on Lasix drip yesterday and she continues on Lasix drip. Her output yesterday was 3750. PHYSICAL EXAMINATION: GENERAL: When I examined her this morning, she looked well, slightly pale, but not jaundiced. No lymphadenopathy, no thyromegaly. No jugular venous distension and has generalized anasarca. VITAL SIGNS: Her heart rate was 105, blood pressure was 145/92, temperature was 98, respiratory rate was 18 and oxygen saturation was 96% on 2 liters of oxygen. Rest of clinical examination is stable. LABORATORY DATA: Her lab work this morning showed a hemoglobin 7.2 and hematocrit 22. Her chemistry showed a serum sodium 146, potassium 4.1, chloride 110, bicarbonate 26, anion gap of 10, BUN 12, creatinine 1.5. Calcium was 8.6, phosphorus 3.4 and albumin was 2.7. IMPRESSION: 1. Right gluteal abscess status post incision and drainage, much improved. 2. Anemia, status post blood transfusion. However, hemoglobin and hematocrit drifting down. 3. Acute on chronic kidney injury. 4. 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 5. Severe hypoalbuminemia with generalized anasarca and marked weight gain for which she is on Lasix drip and human albumin. 6. Probably nephrotic syndrome due to diabetic nephropathy. PLAN: To continue with the Lasix drip and the human albumin. We will monitor her H and H and probably transfuse her another unit of blood and if she is back to her baseline, she might be discharged home tomorrow. Her IV antibiotics have been discontinued. She is now on amoxicillin and clavulanic acid twice a day. ETHAN LAW MD DR: LEXIS/indira JOB#: [id number] / [id number]
[2016-04-10 06:41] LABS: BASO # 0.1 x10^3/uL (0.0-0.2); BASO % 1 % (0-3); EOS % 2 % (0-3); HEMATOCRIT 24.3 % (36.0-47.0); HEMOGLOBIN 7.8 g/dL (12.0-15.5); LYMPH # 1.7 x10^3/uL (1.0-4.8); LYMPH % 19 % (24-48); MEAN CORPUSCULAR HEMOGLOBIN 30 pg (25-35); MEAN CORPUSCULAR HGB CONC 32 g/dL (31-37); MEAN CORPUSCULAR VOLUME 92 fL (79-100); MONO % 7 % (0-9); NEUT % 71 % (31-73); PLATELET COUNT 368 x10^3/uL (140-400); RED BLOOD COUNT 2.65 x10^6/uL (3.50-5.40); RED CELL DISTRIBUTION WIDTH 15.4 % (11.5-14.5)
[2016-04-10 07:00] VITALS: BP 142/89
[2016-04-10 07:25] LABS: ALBUMIN 3.4 g/dL (3.4-5.0); ALBUMIN/GLOBULIN RATIO 1.1 (1.0-1.7); CALCIUM 8.8 mg/dL (8.5-10.1); CREATININE 1.7 mg/dL (0.6-1.0); GFR 42.7; POTASSIUM 4.5 mmol/L (3.5-5.1); TOTAL BILIRUBIN 0.2 mg/dL (0.2-1.0); TOTAL PROTEIN 6.4 g/dL (6.4-8.2)
[2016-04-10] MEDS: INSULIN ASPART 300 UNITS/3 ML INSULN.PEN SQ SCH ×3 (08:00→16:51)
--- NOTE | 2016-04-10 08:43 | PDOC ---
Infectious Disease Note Subjective Subjective Began to vomit this am ROS ROS GEN: Denies fevers, chills, sweats HEENT: Denies blurred vision, sore throat CV: Denies chest pain RESP: Denies shortness of air, cough GI: Denies n/v/d NEURO: Denies confusion, dizziness MSK: Denies weakness, joint pain/swelling Vital Sign Vital Signs Vital Signs Date Time Temp Pulse Resp B/P Pulse Ox O2 Delivery O2 Flow Rate FiO2 04/10/16 03:00 99.3 114 18 148/97 96 99.3 04/09/16 22:00 Room Air 04/09/16 18:05 2.0 Physical Exam PHYSICAL EXAM GENERAL: NAD, Alert, on side of bed vomiting into trash can HEENT: PERRL NECK: Supple, no JVD, no LN LUNGS: Clear HEART: S1S2, no gallop, no murmur ABD: Soft, NT, no organomegaly, no rebound EXT: 1 to 2 edema, no cyanosis [employer]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, oriented x 3, no focal neurologic deficit SKIN: No rash IV: Port Labs Lab Laboratory Tests Test 04/09/16 11:12 04/09/16 16:58 04/09/16 21:06 04/10/16 05:30 Glucose (Fingerstick) 229mg/dL (70-99) 109mg/dL (70-99) 101mg/dL (70-99) White Blood Count 9.0x10^3/uL (4.0-11.0) Red Blood Count 2.65x10^6/uL (3.50-5.40) Hemoglobin 7.8g/dL (12.0-15.5) Hematocrit 24.3% (36.0-47.0) Mean Corpuscular Volume 92fL (79-100) Mean Corpuscular Hemoglobin 30pg (25-35) Mean Corpuscular Hemoglobin Concent 32g/dL (31-37) Red Cell Distribution Width 15.4% (11.5-14.5) Platelet Count 368x10^3/uL (140-400) Neutrophils (%) (Auto) 71% (31-73) Lymphocytes (%) (Auto) 19% (24-48) Monocytes (%) (Auto) 7% (0-9) Eosinophils (%) (Auto) 2% (0-3) Basophils (%) (Auto) 1% (0-3) Neutrophils # (Auto) 6.4x10^3uL (1.8-7.7) Lymphocytes # (Auto) 1.7x10^3/uL (1.0-4.8) Monocytes # (Auto) 0.6x10^3/uL (0.0-1.1) Eosinophils # (Auto) 0.2x10^3/uL (0.0-0.7) Basophils # (Auto) 0.1x10^3/uL (0.0-0.2) Sodium Level 143mmol/L (136-145) Potassium Level 4.5mmol/L (3.5-5.1) Chloride Level 107mmol/L (98-107) Carbon Dioxide Level 30mmol/L (21-32) Anion Gap 6 (6-14) Blood Urea Nitrogen 16mg/dL (7-20) Creatinine 1.7mg/dL (0.6-1.0) Estimated GFR (Cockcroft-Gault) 42.7 BUN/Creatinine Ratio 9 (6-20) Glucose Level 263mg/dL (70-99) Calcium Level 8.8mg/dL (8.5-10.1) Phosphorus Level 5.0mg/dL (2.6-4.7) Magnesium Level 1.7mg/dL (1.8-2.4) Total Bilirubin 0.2mg/dL (0.2-1.0) Aspartate Amino Transf (AST/SGOT) 78U/L (15-37) Alanine Aminotransferase (ALT/SGPT) 68U/L (14-59) Alkaline Phosphatase 139U/L (46-116) Total Protein 6.4g/dL (6.4-8.2) Albumin 3.4g/dL (3.4-5.0) Albumin/Globulin Ratio 1.1 (1.0-1.7) Test 04/10/16 08:14 Glucose (Fingerstick) 225mg/dL (70-99) Objective Assessment Right Buttock abscess s/p I and D 04/07 cult Group B strep Leukocytosis -better Anemia - stable Substance abuse INOCENCIA - does self cath DM ? Personality Disorder Plan Plan of Care D/w nursing to administer Zofran/pain med D/cont Zyvox/fluconazole/ Augmentin for now with vomiting Dose Unasyn for now Probiotics f/u am labs and cultures Supportive care Local wound care PAL RIOS MD Apr 10, 2016 08:43
[2016-04-10] MEDS: METOPROLOL TART IMMED RELEASE 25 MG TABLET PO SCH ×2 (08:44→22:02)
[2016-04-10] MEDS: GABAPENTIN 300 MG CAPSULE. PO SCH ×2 (08:44→20:20)
[2016-04-10] MEDS: LACTOBACILLUS ACIDOPH & BULGAR 1 TABLET. PO SCH ×3 (08:44→16:55)
[2016-04-10] MEDS: OXYCODONE/APAP 10/325 TABLET. PO SCH ×3 (08:44→20:21)
[2016-04-10] MEDS: PANTOPRAZOLE 40 MG TABLET. PO SCH (08:44)
[2016-04-10] MEDS: NICOTINE 21MG PATCH. TD SCH (08:45)
[2016-04-10] MEDS: ALBUMIN HUMAN 25% 100 ML IV SCH ×3 (08:45→20:19)
[2016-04-10] MEDS: AMLODIPINE BESYLATE 10 MG TABLET PO SCH (08:45)
[2016-04-10] MEDS: INSULIN DETEMIR 300 UNITS/3 ML INSULN.PEN. SQ SCH ×2 (08:57→22:07)
--- NOTE | 2016-04-10 09:51 | PDOC2 ---
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) PAST SURGICAL HISTORY Past Surgical History: , Other (I & D left axilla and right groin; right great toe amputation ; port-a-cath) FAMILY HISTORY Family History: Diabetes, High Cholestrol, Hypertension SOCIAL HISTORY Smoke: <1 pack per day Drugs: Cocaine, Marijuana Lives: with Family ALLERGIES ALLERGIES: Coded Allergies: No Known Drug Allergies (Unverified , 04/07/16) VITALS VITALS Vital Signs Date Time Temp Pulse Resp B/P Pulse Ox O2 Delivery O2 Flow Rate FiO2 04/10/16 08:45 117 142/89 04/10/16 08:44 Room Air 04/10/16 07:00 98.5 20 91 98.5 04/09/16 18:05 2.0 LABS Lab: Laboratory Tests Test 04/09/16 11:12 04/09/16 16:58 04/09/16 21:06 04/10/16 05:30 Glucose (Fingerstick) 229mg/dL (70-99) 109mg/dL (70-99) 101mg/dL (70-99) White Blood Count 9.0x10^3/uL (4.0-11.0) Red Blood Count 2.65x10^6/uL (3.50-5.40) Hemoglobin 7.8g/dL (12.0-15.5) Hematocrit 24.3% (36.0-47.0) Mean Corpuscular Volume 92fL (79-100) Mean Corpuscular Hemoglobin 30pg (25-35) Mean Corpuscular Hemoglobin Concent 32g/dL (31-37) Red Cell Distribution Width 15.4% (11.5-14.5) Platelet Count 368x10^3/uL (140-400) Neutrophils (%) (Auto) 71% (31-73) Lymphocytes (%) (Auto) 19% (24-48) Monocytes (%) (Auto) 7% (0-9) Eosinophils (%) (Auto) 2% (0-3) Basophils (%) (Auto) 1% (0-3) Neutrophils # (Auto) 6.4x10^3uL (1.8-7.7) Lymphocytes # (Auto) 1.7x10^3/uL (1.0-4.8) Monocytes # (Auto) 0.6x10^3/uL (0.0-1.1) Eosinophils # (Auto) 0.2x10^3/uL (0.0-0.7) Basophils # (Auto) 0.1x10^3/uL (0.0-0.2) Sodium Level 143mmol/L (136-145) Potassium Level 4.5mmol/L (3.5-5.1) Chloride Level 107mmol/L (98-107) Carbon Dioxide Level 30mmol/L (21-32) Anion Gap 6 (6-14) Blood Urea Nitrogen 16mg/dL (7-20) Creatinine 1.7mg/dL (0.6-1.0) Estimated GFR (Cockcroft-Gault) 42.7 BUN/Creatinine Ratio 9 (6-20) Glucose Level 263mg/dL (70-99) Calcium Level 8.8mg/dL (8.5-10.1) Phosphorus Level 5.0mg/dL (2.6-4.7) Magnesium Level 1.7mg/dL (1.8-2.4) Total Bilirubin 0.2mg/dL (0.2-1.0) Aspartate Amino Transf (AST/SGOT) 78U/L (15-37) Alanine Aminotransferase (ALT/SGPT) 68U/L (14-59) Alkaline Phosphatase 139U/L (46-116) Total Protein 6.4g/dL (6.4-8.2) Albumin 3.4g/dL (3.4-5.0) Albumin/Globulin Ratio 1.1 (1.0-1.7) Test 04/10/16 08:14 Glucose (Fingerstick) 225mg/dL (70-99) IMAGES IMAGES no CXR for review EKG EKG no EKG for review ASSESSMENT/PLAN ASSESSMENT/PLAN ATTEMPTED TO SEE PATIENT AND SHE TOLD THIS PROVIDER "IF YOU A NOT A FAMILY DOCTOR OR A KIDNEY DOCTOR - I DON'T NEED YOU!" "I'M SICK AND I DON'T WANT TO BE BOTHERED - LET ME SLEEP!" "I DON'T HAVE HEART PROBLEMS." Problems: MAT HULL APRN Apr 10, 2016 09:51
[2016-04-10 11:00] VITALS: BP 117/74
[2016-04-10] MEDS: AMPICILLIN/SULBACTAM 3 GM in IV NORMAL SALINE 100ML 100 ML IV SCH ×3 (11:02→22:09)
[2016-04-10] MEDS: FUROSEMIDE INJ 100 MG in IV NORMAL SALINE 100ML 100 ML IV PRN (12:27)
[2016-04-10] MEDS: PROMETHAZINE 12.5 MG TABLET. PO PRN (14:06)
[2016-04-10 15:00] VITALS: BP 130/87
--- NOTE | 2016-04-10 15:19 | PDOC ---
SUBJECTIVE ROS INOCENCIA/ CKD III now feeling worse. CVS: no Orthopnea, no CP RESP: no SOB, no FLORES GI: + Nausea, ? Vomiting : no Dysuria, no Urgency OBJECTIVE Vital Signs Vital Signs Date Time Temp Pulse Resp B/P Pulse Ox O2 Delivery O2 Flow Rate FiO2 04/10/16 14:06 Room Air 04/10/16 11:00 98.6 103 20 117/74 91 98.6 04/09/16 18:05 2.0 I & 0 Intake and Output 04/10/16 07:00 Intake Total 1500 ml Output Total 4150 ml Balance -2650 ml Intake Oral 1500 ml Output Urine Total 4150 ml # Bowel Movements 1 PHYSICAL EXAM Physical Exam General Appearance: Awake Alert Oriented x 3 In min Distress; much better mood then preop Eyes: VIsion Unchanged Conjunctiva Normal EN: No EN Drainage Mucous Memb. moist Neck: no JVD min JVP Supple no Thyromegaly CVS: S1 S2 ? Murmur No Gallop No Rub +2 Edema Resp: rare Rales no Rhonchi no Acc. Muscle use GI: BS +ve NO Bruit Non Tender + Distended (? Ascites) : no CVA tenderness; no Suprapubic Tenderness SKIN: no Rashes Breast Exam deferred; ? Discoloration of Lt great toe Mu.Sk: Decreased ROM in foot no Muscle Atrophy; Rt Great toe amputation Heme: Unable to palpate Obvious LAD no palp Splenomegaly NEURO: dec Strength in foot Cranial Nerves II - XII grossly intact Psych: not currently Depressed no Active hallucination Assessment & Plan ARF: pt is not aware of same - suspect due to ongoing infection. Current FLuid and E-lyte status does not necessitate emergent need for Dialysis. Will re-evaluate for Dialysis in am - anticipate rise i n creat closer to 2-2.5 once Euvolemic. Abd distention - somewhat better ; check ECHO too. Current levels of Proteinuria does not explain current levels of edema / ansarca. ? Liver dysfunction given min ^ed LFTs Edema - non- nephrotic range proteinuria per 24-hr URine; ct Lasix gtt for -ve fluid balance as best jan. Wait on ECHo CKD III/ IV underlying cannot be ruled out Low Alb - IV Albumin as ordered with Lasix gtt LowishMag - 1 gm IV MAg Min ^ed Na - suspect due to lasix gtt and alb - watch trend - so will not water restrict for now Neurogenic Bladder - renal us -ve for [place] - juan in place already sev Anemia: Start Epogen. May need IV Fe too once fluid status is optimized HTN: Current BP meds reviewed. See orders for changes. Gluteal abscess - s/p I and D Discussed Plan of Care and prognosis etc. at length with Pt COMMENT/RELEVANT DATA Meds Current Medications Medications (Trade) Dose Ordered Sig/Ju Start Time Stop Time Status Last Admin Dose Admin Acetaminophen (Tylenol) 650 mg PRN Q4HRS PRN 04/05/16 19:45 Albumin Human 100 ml @ 100 mls/hr TID 04/08/16 14:00 04/10/16 14:06 100 MLS/HR Amlodipine Besylate (Norvasc) 10 mg DAILY 04/06/16 09:00 04/10/16 08:45 10 MG Amoxicillin/ Clavulanate Potassium (Augmentin 875/ 125mg) 1 tab BID 04/09/16 09:00 04/10/16 08:38 DC 04/09/16 21:03 1 TAB Ampicillin Sodium/ Sulbactam Sodium/ Sodium Chloride (Unasyn/Iv Sodium Chloride 0.9% 100ml) 100 ml @ 200 mls/hr Q8HRS 04/10/16 09:00 04/10/16 14:06 200 MLS/HR Atorvastatin Calcium (Lipitor) 10 mg QHS 04/06/16 21:00 04/09/16 21:03 10 MG Dextrose 12.5 gm 12.5 gm PRN Q15MIN PRN 04/05/16 22:30 Diphenhydramine HCl (Benadryl) 12.5 mg PRN Q2HR PRN 04/07/16 10:00 04/08/16 09:59 DC Famotidine (Pepcid) 20 mg STK-MED ONCE 04/07/16 08:26 04/07/16 08:27 DC Fentanyl Citrate (Fentanyl 2ml Vial) 50 mcg PRN Q5MIN PRN 04/07/16 10:00 04/08/16 09:59 DC Fentanyl Citrate (Fentanyl 5ml Vial) 250 mcg STK-MED ONCE 04/07/16 08:25 04/07/16 08:26 DC Fluconazole (Diflucan) 100 mg DAILY 04/08/16 10:00 04/10/16 08:38 DC 04/09/16 08:18 100 MG Fluconazole/ Sodium Chloride (Diflucan 100mg/ 50ml Premix) 50 ml @ 100 mls/hr Q24H 04/06/16 11:00 04/08/16 09:57 DC 04/07/16 10:24 100 MLS/HR Furosemide (Lasix) 40 mg 1X ONCE 04/07/16 11:15 04/07/16 11:16 DC 04/07/16 11:31 40 MG Furosemide 40 mg 40 mg [id number] 04/08/16 14:00 04/08/16 14:00 DC Furosemide/Sodium Chloride (Lasix Drip/Iv Sodium Chloride 0.9% 100ml) 100 ml @ 0 mls/hr CONT PRN 04/08/16 12:15 04/10/16 12:27 5 MLS/HR Gabapentin (Neurontin) 900 mg BID 04/06/16 09:00 04/10/16 08:44 900 MG Hydromorphone HCl (Dilaudid) 0.4 mg PRN Q10MIN PRN 04/07/16 10:00 04/08/16 09:59 DC Hydromorphone HCl 1 mg 1 mg PRN Q3HRS PRN 04/05/16 20:00 04/10/16 12:20 1 MG Insulin Aspart (Novolog) 0-7 UNITS PRN QID 04/05/16 22:30 UNV Insulin Aspart 0-9 UNITS TIDWMEALS 04/06/16 08:00 04/09/16 12:29 4 UNITS Insulin Detemir (Levemir) 20 units BID 04/06/16 09:00 04/10/16 08:57 20 UNITS Lactated Ringer's (Iv Lactated Ringers) 1,000 ml @ 75 mls/hr 1X ONCE 04/07/16 09:00 04/07/16 22:19 DC 04/07/16 08:30 75 MLS/HR Lactobacillus Acidophilus 1 tab 1 tab TIDWMEALS 04/09/16 08:15 04/10/16 12:20 1 TAB Lidocaine HCl 100 mg STK-MED ONCE 04/07/16 08:25 04/07/16 08:26 DC Lidocaine/ Epinephrine (Xylocaine 1%-Epi 1:100,000) 20 ml STK-MED ONCE 04/07/16 07:27 04/07/16 07:28 DC Linezolid (Zyvox Premix) 300 ml @ 300 mls/hr Q12HR 04/05/16 21:00 04/08/16 09:57 DC 04/07/16 21:41 300 MLS/HR Linezolid (Zyvox) 600 mg BID 04/08/16 21:00 04/10/16 08:38 DC 04/09/16 21:03 600 MG Magnesium Sulfate/ Dextrose (Magnesium Sulfate PREMIX 2GM) 50 ml @ 25 mls/hr PRN DAILY PRN 04/06/16 16:00 Meperidine HCl (Demerol) 12.5 mg PRN Q5MIN PRN 04/07/16 10:00 04/08/16 09:59 DC Metoclopramide HCl 10 mg 10 mg STK-MED ONCE 04/07/16 08:26 04/07/16 08:27 DC Metoprolol Tartrate (Lopressor) 25 mg BID 04/06/16 09:00 04/10/16 08:44 25 MG Morphine Sulfate 4 mg PRN Q10MIN PRN 04/07/16 10:00 04/08/16 09:59 DC Nicotine (Nicoderm Cq 21mg) 1 patch DAILY 04/06/16 09:00 04/10/16 08:45 1 PATCH Ondansetron HCl (Zofran) 4 mg PRN Q6HRS PRN 04/05/16 22:30 04/10/16 08:40 4 MG Oxycodone/ Acetaminophen (Percocet 10/325) 2 tab TID 04/05/16 21:00 04/10/16 14:06 2 TAB Pantoprazole Sodium 40 mg 40 mg DAILYAC 04/06/16 07:30 04/10/16 08:44 40 MG Piperacillin Sod/ Tazobactam Sod/ Sodium Chloride (Zosyn/Iv Sodium Chloride 0.9% 50ml) 50 ml @ 100 mls/hr Q6HRS 04/06/16 00:00 04/09/16 08:02 DC 04/09/16 05:53 100 MLS/HR Prochlorperazine Edisylate (Compazine) 5 mg PRN Q6HRS PRN 04/07/16 10:00 04/08/16 09:59 DC Promethazine HCl (Phenergan) 12.5 mg PRN BID PRN 04/05/16 22:30 04/10/16 14:06 12.5 MG Propofol 20 ml @ As Directed STK-MED ONCE 04/07/16 08:26 04/07/16 08:27 DC Sevoflurane (Ultane) 15 ml STK-MED ONCE 04/07/16 08:25 04/07/16 08:26 DC Tamsulosin HCl (Flomax) 0.4 mg QHS 04/06/16 21:00 04/09/16 21:05 0.4 MG Lab Laboratory Tests Test 04/09/16 16:58 04/09/16 21:06 04/10/16 05:30 04/10/16 08:14 Glucose (Fingerstick) 109mg/dL (70-99) 101mg/dL (70-99) 225mg/dL (70-99) White Blood Count 9.0x10^3/uL (4.0-11.0) Red Blood Count 2.65x10^6/uL (3.50-5.40) Hemoglobin 7.8g/dL (12.0-15.5) Hematocrit 24.3% (36.0-47.0) Mean Corpuscular Volume 92fL (79-100) Mean Corpuscular Hemoglobin 30pg (25-35) Mean Corpuscular Hemoglobin Concent 32g/dL (31-37) Red Cell Distribution Width 15.4% (11.5-14.5) Platelet Count 368x10^3/uL (140-400) Neutrophils (%) (Auto) 71% (31-73) Lymphocytes (%) (Auto) 19% (24-48) Monocytes (%) (Auto) 7% (0-9) Eosinophils (%) (Auto) 2% (0-3) Basophils (%) (Auto) 1% (0-3) Neutrophils # (Auto) 6.4x10^3uL (1.8-7.7) Lymphocytes # (Auto) 1.7x10^3/uL (1.0-4.8) Monocytes # (Auto) 0.6x10^3/uL (0.0-1.1) Eosinophils # (Auto) 0.2x10^3/uL (0.0-0.7) Basophils # (Auto) 0.1x10^3/uL (0.0-0.2) Sodium Level 143mmol/L (136-145) Potassium Level 4.5mmol/L (3.5-5.1) Chloride Level 107mmol/L (98-107) Carbon Dioxide Level 30mmol/L (21-32) Anion Gap 6 (6-14) Blood Urea Nitrogen 16mg/dL (7-20) Creatinine 1.7mg/dL (0.6-1.0) Estimated GFR (Cockcroft-Gault) 42.7 BUN/Creatinine Ratio 9 (6-20) Glucose Level 263mg/dL (70-99) Calcium Level 8.8mg/dL (8.5-10.1) Phosphorus Level 5.0mg/dL (2.6-4.7) Magnesium Level 1.7mg/dL (1.8-2.4) Total Bilirubin 0.2mg/dL (0.2-1.0) Aspartate Amino Transf (AST/SGOT) 78U/L (15-37) Alanine Aminotransferase (ALT/SGPT) 68U/L (14-59) Alkaline Phosphatase 139U/L (46-116) Total Protein 6.4g/dL (6.4-8.2) Albumin 3.4g/dL (3.4-5.0) Albumin/Globulin Ratio 1.1 (1.0-1.7) Test 04/10/16 11:14 04/10/16 11:45 Glucose (Fingerstick) 215mg/dL (70-99) 196mg/dL (70-99) HUGO ZEE MD Apr 10, 2016 15:19
[2016-04-10] MEDS ORDERED: MAGNESIUM SULFATE 1GM 100 ML IV ONE (16:00)
--- NOTE | 2016-04-10 17:17 | CARD ---
APPROVED REPORT EXAM: Two-dimensional and M-mode echocardiogram with Doppler and color Doppler. Other Information Quality : GoodHR: 116bpm Rhythm : Tachycardia INDICATION Peripheral Edema 2D DIMENSIONS RVDd2.4 (2.9-3.5cm)Left Atrium(2D)4.0 (1.6-4.0cm) IVSd1.2 (0.7-1.1cm)Aortic Root(2D)2.6 (2.0-3.7cm) LVDd4.4 (3.9-5.9cm)LVOT Diameter2.1 (1.8-2.4cm) PWd1.1 (0.7-1.1cm)LVDs3.0 (2.5-4.0cm) FS (%) 32.7 %SV53.9 ml LVEF(%)61.3 (>50%) Aortic Valve AoV Peak Denzel.182.6cm/sAoV VTI29.9cm AO Peak GR.13.3mmHgLVOT Peak Denzel.145.9cm/s AO Mean GR.7mmHgAVA (VMAX)2.89cm2 Mitral Valve MV E Peak Gr.9mmHgMV E Mean Gr.5mmHg Pulmonary Valve PV Peak Ykwjarfq875.9cm/s Tricuspid Valve TR P. Aawfaguj918mg/sTR Peak Gr.57mmHg Pulmonary Vein S1 Iucplzik82.4cm/sD2 Brxrinkk51.4cm/s PVa [id number] LEFT VENTRICLE The left ventricle is normal size. There is mild concentric left ventricular hypertrophy. The left ve ntricular systolic function is normal and the ejection fraction is within normal range. The Ejection Fraction is 60-65%. There is normal LV segmental wall motion. Tissue Doppler imaging reveals moderate left ventricular diastolic dysfunction. RIGHT VENTRICLE The right ventricle is normal size. There is normal right ventricular wall thickness. The right ventr icular systolic function is normal. ATRIA The left atrium size is normal. The right atrium size is normal. The interatrial septum is intact wit h no evidence for an atrial septal defect or patent foramen ovale as noted on 2-D or Doppler imaging. AORTIC VALVE The aortic valve is normal in structure and function. Doppler and Color Flow revealed no significant aortic regurgitation. There is no significant aortic valvular stenosis. MITRAL VALVE The mitral valve is normal in structure and function. There is no evidence of mitral valve prolapse. There is no mitral valve stenosis. Doppler and Color Flow revealed mild mitral regurgitation. TRICUSPID VALVE Doppler and Color Flow revealed mild tricuspid regurgitation.The pulmonary artery systolic pressure i s estimated at 63 mmHg. There is moderate pulmonary hypertension. PULMONIC VALVE Doppler and Color Flow revealed mild pulmonic valvular regurgitation. There is no pulmonic valvular s tenosis. GREAT VESSELS The aortic root is normal in size. The ascending aorta is normal in size. The IVC is normal in size a nd collapses <50% with inspiration. PERICARDIAL EFFUSION There is no evidence of significant pericardial effusion. Critical Notification Critical Value: No <Conclusion> The left ventricular systolic function is normal and the ejection fraction is within normal range. Th e Ejection Fraction is 60-65%. There is normal LV segmental wall motion. Doppler and Color Flow revealed mild mitral regurgitation. Doppler and Color Flow revealed mild tricuspid regurgitation.The pulmonary artery systolic pressure i s estimated at 63 mmHg. There is moderate pulmonary hypertension. The IVC is normal in size and collapses <50% with inspiration.
[2016-04-10] MEDS: OXYCODONE/APAP 10/325 TABLET. PO PRN (17:49)
--- NOTE | 2016-04-10 18:35 | PDOC ---
Provider Note Provider Note Initially asked by Dr. Pitts from nephrology to evaluate the patient. Initial attempts made by her nurse practitioners to evaluate the patient but the patient refused to be seen by cardiology. Subsequently I evaluated the patient in the room briefly and she denied any specific cardiovascular symptoms except for lower extremity edema which has been progressive. Examination deferred due to patient's wishes. Her echocardiogram is reviewed and does not have any significant diastolic is function but she does have some mild tricuspid regurgitation with moderate pulmonary hypertension noted. Although she does have some right-sided hypertension and probably RV failure or volume overload it appears that most of her issues are related to nephrotic syndrome. Would continue diuresis at present doses. If patient wishes to be seen routinely will follow up with her otherwise defer to nephrology from a diuretic perspective. Thank you for allowing us to participate in the care of this patient. We'll be available if patient allows. MAICOL BRANTLEY MD Apr 10, 2016 18:35
[2016-04-10 19:00] VITALS: BP 145/85
[2016-04-10] MEDS: ATORVASTATIN CALCIUM 10 MG TABLET. PO SCH (20:22)
[2016-04-10] MEDS: TAMSULOSIN 0.4 MG CAP.ER.24H. PO SCH (22:03)
[2016-04-10 23:00] VITALS: BP 140/72
[2016-04-11] MEDS: PROMETHAZINE 12.5 MG TABLET. PO PRN (00:59)
[2016-04-11] MEDS: OXYCODONE/APAP 10/325 TABLET. PO PRN ×3 (00:59→21:40)
[2016-04-11] MEDS: HYDROMORPHONE 2 MG/ML VIAL. IV PRN ×6 (02:47→21:45)
[2016-04-11 03:00] VITALS: BP 125/96
--- NOTE | 2016-04-11 05:06 | PN ---
DATE: SUBJECTIVE: The patient is resting, slightly propped up in bed, in no apparent respiratory distress. She has definitely lost lots of weight and her legs are less swollen. She has been up and about and apparently had had some nausea because of Augmentin, so she was put back on Unasyn 3 g IV every 8 hours. She apparently grew beta hemolytic streptococci group A from her right gluteal abscess. PHYSICAL EXAMINATION: GENERAL: When I saw her this afternoon, she looked well and was clearly in no apparent respiratory distress; pale, but no jaundice, cyanosis, or thyromegaly. No jugular venous distention. No limb edema. VITAL SIGNS: Her heart rate was 103, blood pressure 117/74, her temperature was 98.6, respiratory rate was 20, and oxygen saturation was 91%. HEAD, EYES, EARS, NOSE, AND THROAT: Showed normocephalic, atraumatic. NECK: Supple. HEART: Showed normal first and second heart sounds with no gallop, rub, or murmur. CHEST: Clear to auscultation. No crepitation or rhonchi. ABDOMEN: Distended, soft, and nontender. No guarding or rigidity. No organomegaly. Hernial orifices intact. Bowel sounds normal. NEUROLOGIC: She is awake, alert, and responding appropriately. Cranial nerves intact. She moved her extremities without difficulty. She ambulates without assistance or assistive devices. Her intake over the last 24 hours was 1500, output was 4,150. LABORATORY DATA: This morning showed a serum sodium of 143, potassium 4.5, chloride 107, bicarbonate 30, anion gap of 6, BUN 16, creatinine 1.7, and estimated GFR was 42 mL per minute. Her glucose was 163, calcium was 8.8, phosphorus 5, and magnesium was 1.7. Total bilirubin, AST, ALT, and alkaline phosphatase slightly elevated. Her total protein was 6.4 and albumin 3.4. Her white cell count was 10,000, hemoglobin 7.8, hematocrit 24, MCV 92, and platelet count of 368,000. ASSESSMENT: 1. Right gluteal abscess, status post incision and drainage. The best culture grew beta hemolytic Streptococcus group B. She is now on Unasyn 3 g IV q. 8 hourly. 2. Anemia, status post blood transfusion. Her hemoglobin and hematocrit are stable today at 7.8 and 24.3. 3. [id number]-[id number] kidney injury. Her serum creatinine is stable at around 1.7. 4. 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 5. Severe hypoalbuminemia with generalized anasarca with marked weight gain for which she is now on Lasix drip and human albumin. 6. Nephrotic syndrome, likely due to diabetic nephropathy. PLAN: To continue with the IV antibiotic, continue with Lasix drip and 25% human albumin. The Cardiology team was consulted. We will await for their evaluation, and if she remains stable tomorrow, we will discharge her back home to continue to follow up with her primary care physician. ETHAN LAW MD DR: LEXIS/indira JOB#: [id number] / [id number]
[2016-04-11] MEDS: AMPICILLIN/SULBACTAM 3 GM in IV NORMAL SALINE 100ML 100 ML IV SCH (05:33)
[2016-04-11 06:45] LABS: ALBUMIN 3.9 g/dL (3.4-5.0); CALCIUM 8.3 mg/dL (8.5-10.1); CREATININE 2.1 mg/dL (0.6-1.0); GFR 33.5; PHOSPHORUS 4.1 mg/dL (2.6-4.7); POTASSIUM 4.3 mmol/L (3.5-5.1)
[2016-04-11 07:00] VITALS: BP 110/69
[2016-04-11] MEDS: FUROSEMIDE INJ 100 MG in IV NORMAL SALINE 100ML 100 ML IV PRN (08:25)
--- NOTE | 2016-04-11 08:31 | PDOC ---
Infectious Disease Note Subjective Subjective Having diarrhea and wants off the abx. Vomiting better Doesn't want to be "F--ked with right now" ROS ROS GEN: Denies fevers, chills, sweats HEENT: Denies blurred vision, sore throat CV: Denies chest pain RESP: Denies shortness of air, cough GI: Denies n/v/d NEURO: Denies confusion, dizziness MSK: Denies weakness, joint pain/swelling Vital Sign Vital Signs Vital Signs Date Time Temp Pulse Resp B/P Pulse Ox O2 Delivery O2 Flow Rate FiO2 04/11/16 07:00 97.8 101 18 110/69 96 Nasal Cannula 2.5 97.8 Physical Exam PHYSICAL EXAM GENERAL: NAD, Alert HEENT: PERRL, OC/OP- clear NECK: Supple, no JVD, no LN LUNGS: Clear HEART: S1S2, no gallop, no murmur ABD: Soft, NT, no organomegaly, no rebound Michel EXT: No edema, no cyanosis PIPE FITTER AMMONIA: Alert, oriented x 3, no focal neurologic deficit SKIN: No rash IV: ok Labs Lab Laboratory Tests Test 04/10/16 11:14 04/10/16 11:45 04/10/16 16:37 04/10/16 22:01 Glucose (Fingerstick) 215mg/dL (70-99) 196mg/dL (70-99) 131mg/dL (70-99) 219mg/dL (70-99) Test 04/11/16 00:30 04/11/16 05:30 Glucose (Fingerstick) 270mg/dL (70-99) Sodium Level 142mmol/L (136-145) Potassium Level 4.3mmol/L (3.5-5.1) Chloride Level 103mmol/L (98-107) Carbon Dioxide Level 27mmol/L (21-32) Anion Gap 12 (6-14) Blood Urea Nitrogen 20mg/dL (7-20) Creatinine 2.1mg/dL (0.6-1.0) Estimated GFR (Cockcroft-Gault) 33.5 Glucose Level 289mg/dL (70-99) Calcium Level 8.3mg/dL (8.5-10.1) Phosphorus Level 4.1mg/dL (2.6-4.7) Magnesium Level 1.9mg/dL (1.8-2.4) Albumin 3.9g/dL (3.4-5.0) Objective Assessment Right Buttock abscess s/p I and D 04/07 cult Group B strep. Will not allow eval Loose stool Leukocytosis -better Anemia - stable Substance abuse INOCENCIA - does self cath DM ? Personality Disorder -demanding off abx Plan Plan of Care D/c Unasyn for now F/u stool output Probiotics f/u am labs and cultures Supportive care Local wound care D/w PAL Perez MD Apr 11, 2016 08:31
--- NOTE | 2016-04-11 08:55 | PDOC ---
SUBJECTIVE ROS INOCENCIA/ CKD III/IV and anasarca feels a little better this am. She refused to talk to Cardio account executive trainee and Dr Cardoso yest. C/o DEL CID this am CVS: no Orthopnea, no CP RESP: no SOB, no FLORES GI: min Nausea, no Vomiting : no Dysuria, no Urgency OBJECTIVE Vital Signs Vital Signs Date Time Temp Pulse Resp B/P Pulse Ox O2 Delivery O2 Flow Rate FiO2 04/11/16 07:00 97.8 101 18 110/69 96 Nasal Cannula 2.5 97.8 I & 0 Intake and Output 04/11/16 07:00 Intake Total 3600 ml Output Total 2000 ml Balance 1600 ml Intake Oral 3600 ml Output Urine Total 2000 ml PHYSICAL EXAM Physical Exam General Appearance: Awake Alert Oriented x 3 In min Distress; Eyes: VIsion Unchanged Conjunctiva Normal; ? some facial edema EN: No EN Drainage Mucous Memb. moist Neck: ? JVD + JVP Supple no Thyromegaly CVS: S1 S2 ? Murmur No Gallop No Rub +1 Edema Resp: No Rales no Rhonchi no Acc. Muscle use GI: BS +ve NO Bruit Non Tender + Distended (? Ascites) : no CVA tenderness; no Suprapubic Tenderness Assessment & Plan ARF: pt is not aware of same - suspect due to ongoing infection and some due to Diuresis. Will hold lasix gtt for now. 24-hr Urine collection did not report Cr Cl. Current FLuid and E-lyte status does not necessitate emergent need for Dialysis. Will re-evaluate for Dialysis in am - anticipate rise i n creat closer to 2-2.5 once Euvolemic. DEL CID - ? Dehydration DEL CID so will D/c Lasix gtt Abd distention - somewhat better ; ECHO fnidings noted. Current levels of Proteinuria does not explain current levels of edema / ansarca. ? Liver dysfunction given min ^ed LFTs ^ PA pressures - Cardiology consult reqeusted - Check ODETTE - ? Need for VQ Edema - non- nephrotic range proteinuria per 24-hr URine; CKD III/ IV underlying cannot be ruled out Low Alb - IV Albumin as ordered with Lasix gtt LowishMag - now corrected Neurogenic Bladder - renal us -ve for [place] - juan in place sev Anemia: Start Epogen. May need IV Fe too once fluid status is optimized HTN: Current BP meds reviewed. Better after diuresis. See orders for changes. Gluteal abscess - s/p I and D Discussed Plan of Care and prognosis etc. at length with Pt COMMENT/RELEVANT DATA Meds Current Medications Medications (Trade) Dose Ordered Sig/Ju Start Time Stop Time Status Last Admin Dose Admin Acetaminophen (Tylenol) 650 mg PRN Q4HRS PRN 04/05/16 19:45 Albumin Human 100 ml @ 100 mls/hr TID 04/08/16 14:00 04/10/16 20:19 100 MLS/HR Amlodipine Besylate (Norvasc) 10 mg DAILY 04/06/16 09:00 04/10/16 08:45 10 MG Amoxicillin/ Clavulanate Potassium (Augmentin 875/ 125mg) 1 tab BID 04/09/16 09:00 04/10/16 08:38 DC 04/09/16 21:03 1 TAB Ampicillin Sodium/ Sulbactam Sodium 3 gm/Sodium Chloride 100 ml @ 200 mls/hr Q8HRS 04/10/16 09:00 04/11/16 08:30 DC 04/11/16 05:33 200 MLS/HR Atorvastatin Calcium (Lipitor) 10 mg QHS 04/06/16 21:00 04/10/16 20:22 10 MG Dextrose 12.5 gm 12.5 gm PRN Q15MIN PRN 04/05/16 22:30 Diphenhydramine HCl (Benadryl) 12.5 mg PRN Q2HR PRN 04/07/16 10:00 04/08/16 09:59 DC Famotidine (Pepcid) 20 mg STK-MED ONCE 04/07/16 08:26 04/07/16 08:27 DC Fentanyl Citrate (Fentanyl 2ml Vial) 50 mcg PRN Q5MIN PRN 04/07/16 10:00 04/08/16 09:59 DC Fentanyl Citrate (Fentanyl 5ml Vial) 250 mcg STK-MED ONCE 04/07/16 08:25 04/07/16 08:26 DC Fluconazole (Diflucan) 100 mg DAILY 04/08/16 10:00 04/10/16 08:38 DC 04/09/16 08:18 100 MG Fluconazole/ Sodium Chloride (Diflucan 100mg/ 50ml Premix) 50 ml @ 100 mls/hr Q24H 04/06/16 11:00 04/08/16 09:57 DC 04/07/16 10:24 100 MLS/HR Furosemide (Lasix) 40 mg 1X ONCE 04/07/16 11:15 04/07/16 11:16 DC 04/07/16 11:31 40 MG Furosemide 40 mg 40 mg [id number] 04/08/16 14:00 04/08/16 14:00 DC Furosemide/Sodium Chloride (Lasix Drip/Iv Sodium Chloride 0.9% 100ml) 100 ml @ 0 mls/hr CONT PRN 04/08/16 12:15 04/11/16 08:25 5 MLS/HR Gabapentin (Neurontin) 900 mg BID 04/06/16 09:00 04/10/16 20:20 900 MG Hydromorphone HCl (Dilaudid) 0.4 mg PRN Q10MIN PRN 04/07/16 10:00 04/08/16 09:59 DC Hydromorphone HCl 1 mg 1 mg PRN Q3HRS PRN 04/05/16 20:00 04/11/16 06:09 1 MG Insulin Aspart (Novolog) 0-7 UNITS PRN QID 04/05/16 22:30 UNV Insulin Aspart 0-9 UNITS TIDWMEALS 04/06/16 08:00 04/09/16 12:29 4 UNITS Insulin Detemir (Levemir) 20 units BID 04/06/16 09:00 04/10/16 22:07 20 UNITS Lactated Ringer's (Iv Lactated Ringers) 1,000 ml @ 75 mls/hr 1X ONCE 04/07/16 09:00 04/07/16 22:19 DC 04/07/16 08:30 75 MLS/HR Lactobacillus Acidophilus 1 tab 1 tab TIDWMEALS 04/09/16 08:15 04/10/16 16:55 1 TAB Lidocaine HCl 100 mg STK-MED ONCE 04/07/16 08:25 04/07/16 08:26 DC Lidocaine/ Epinephrine (Xylocaine 1%-Epi 1:100,000) 20 ml STK-MED ONCE 04/07/16 07:27 04/07/16 07:28 DC Linezolid (Zyvox Premix) 300 ml @ 300 mls/hr Q12HR 04/05/16 21:00 04/08/16 09:57 DC 04/07/16 21:41 300 MLS/HR Linezolid (Zyvox) 600 mg BID 04/08/16 21:00 04/10/16 08:38 DC 04/09/16 21:03 600 MG Magnesium Sulfate/ Dextrose (Magnesium Sulfate PREMIX 1GM) 100 ml @ 100 mls/hr 1X ONCE 04/10/16 16:00 04/10/16 16:59 DC 04/10/16 16:55 100 MLS/HR Magnesium Sulfate/ Dextrose (Magnesium Sulfate PREMIX 2GM) 50 ml @ 25 mls/hr PRN DAILY PRN 04/06/16 16:00 Meperidine HCl (Demerol) 12.5 mg PRN Q5MIN PRN 04/07/16 10:00 04/08/16 09:59 DC Metoclopramide HCl 10 mg 10 mg STK-MED ONCE 04/07/16 08:26 04/07/16 08:27 DC Metoprolol Tartrate (Lopressor) 25 mg BID 04/06/16 09:00 04/10/16 22:02 25 MG Morphine Sulfate 4 mg PRN Q10MIN PRN 04/07/16 10:00 04/08/16 09:59 DC Nicotine (Nicoderm Cq 21mg) 1 patch DAILY 04/06/16 09:00 04/10/16 08:45 1 PATCH Ondansetron HCl (Zofran) 4 mg PRN Q6HRS PRN 04/05/16 22:30 04/10/16 08:40 4 MG Oxycodone/ Acetaminophen (Percocet 10/325) 2 tab TID 04/05/16 21:00 04/10/16 20:21 2 TAB Pantoprazole Sodium 40 mg 40 mg DAILYAC 04/06/16 07:30 04/10/16 08:44 40 MG Piperacillin Sod/ Tazobactam Sod/ Sodium Chloride (Zosyn/Iv Sodium Chloride 0.9% 50ml) 50 ml @ 100 mls/hr Q6HRS 04/06/16 00:00 04/09/16 08:02 DC 04/09/16 05:53 100 MLS/HR Prochlorperazine Edisylate (Compazine) 5 mg PRN Q6HRS PRN 04/07/16 10:00 04/08/16 09:59 DC Promethazine HCl (Phenergan) 12.5 mg PRN BID PRN 04/05/16 22:30 04/11/16 00:59 12.5 MG Propofol 20 ml @ As Directed STK-MED ONCE 04/07/16 08:26 04/07/16 08:27 DC Sevoflurane (Ultane) 15 ml STK-MED ONCE 04/07/16 08:25 04/07/16 08:26 DC Tamsulosin HCl (Flomax) 0.4 mg QHS 04/06/16 21:00 04/10/16 22:03 0.4 MG Lab Laboratory Tests Test 04/10/16 11:14 04/10/16 11:45 04/10/16 16:37 04/10/16 22:01 Glucose (Fingerstick) 215mg/dL (70-99) 196mg/dL (70-99) 131mg/dL (70-99) 219mg/dL (70-99) Test 04/11/16 00:30 04/11/16 05:30 Glucose (Fingerstick) 270mg/dL (70-99) Sodium Level 142mmol/L (136-145) Potassium Level 4.3mmol/L (3.5-5.1) Chloride Level 103mmol/L (98-107) Carbon Dioxide Level 27mmol/L (21-32) Anion Gap 12 (6-14) Blood Urea Nitrogen 20mg/dL (7-20) Creatinine 2.1mg/dL (0.6-1.0) Estimated GFR (Cockcroft-Gault) 33.5 Glucose Level 289mg/dL (70-99) Calcium Level 8.3mg/dL (8.5-10.1) Phosphorus Level 4.1mg/dL (2.6-4.7) Magnesium Level 1.9mg/dL (1.8-2.4) Albumin 3.9g/dL (3.4-5.0) HUGO ZEE MD Apr 11, 2016 08:55
[2016-04-11] MEDS: NICOTINE 21MG PATCH. TD SCH (09:14)
[2016-04-11] MEDS: PANTOPRAZOLE 40 MG TABLET. PO SCH (09:16)
[2016-04-11] MEDS: LACTOBACILLUS ACIDOPH & BULGAR 1 TABLET. PO SCH ×3 (09:16→17:57)
[2016-04-11] MEDS: AMLODIPINE BESYLATE 10 MG TABLET PO SCH (09:17)
[2016-04-11] MEDS: GABAPENTIN 300 MG CAPSULE. PO SCH ×2 (09:17→20:32)
[2016-04-11] MEDS: METOPROLOL TART IMMED RELEASE 25 MG TABLET PO SCH ×2 (09:18→20:33)
[2016-04-11] MEDS: ONDANSETRON PF 4 MG/2 ML VIAL. IV PRN (09:24)
[2016-04-11] MEDS: OXYCODONE/APAP 10/325 TABLET. PO SCH ×3 (10:06→21:00)
[2016-04-11] MEDS: INSULIN ASPART 300 UNITS/3 ML INSULN.PEN SQ SCH ×3 (10:09→17:00)
[2016-04-11] MEDS: INSULIN DETEMIR 300 UNITS/3 ML INSULN.PEN. SQ SCH ×2 (10:09→21:00)
[2016-04-11 11:00] VITALS: BP 147/99
[2016-04-11 11:28] LABS: BILIRUBIN,URINE NEGATIVE (NEG); GLUCOSE,URINE 250 mg/dL (NEG); NITRITE,URINE NEGATIVE (NEG); PROTEIN,URINE 100 mg/dL (NEG-TRACE); UROBILINOGEN,URINE 0.2 mg/dL (0.2 mg/dL)
[2016-04-11 11:50] LABS: BACTERIA,URINE FEW /HPF (0-FEW); SQUAMOUS EPITHELIAL CELL,UR FEW /LPF
[2016-04-11 14:52] VITALS: BP 136/85
[2016-04-11 19:28] LABS: UR PROTEIN RD 161.4 mg/dL (Not Estab.)
[2016-04-11 19:55] VITALS: BP 147/97
[2016-04-11] MEDS: ATORVASTATIN CALCIUM 10 MG TABLET. PO SCH (20:31)
[2016-04-11] MEDS: TAMSULOSIN 0.4 MG CAP.ER.24H. PO SCH (20:33)
[2016-04-11 23:00] VITALS: BP 142/94
[2016-04-12] VITALS (8 sets, daily range): BP systolic 114–144; BP diastolic 65–96
[2016-04-12] MEDS: HYDROMORPHONE 2 MG/ML VIAL. IV PRN ×6 (01:14→20:38)
--- NOTE | 2016-04-12 08:30 | PDOC ---
Infectious Disease Note Subjective Subjective Diarrhea better. Pain ok "Not in the mood to joke today" ROS ROS GEN: Denies fevers, chills, sweats HEENT: Denies blurred vision, sore throat CV: Denies chest pain RESP: Denies shortness of air, cough GI: Denies n/v/d NEURO: Denies confusion, dizziness MSK: Denies weakness, joint pain/swelling Vital Sign Vital Signs Vital Signs Date Time Temp Pulse Resp B/P Pulse Ox O2 Delivery O2 Flow Rate FiO2 04/12/16 06:58 Room Air 04/12/16 01:44 18 96 2.0 04/11/16 23:00 98.7 113 142/94 98.7 Physical Exam PHYSICAL EXAM GENERAL: NAD, Alert, min coop and standoffish. No eye contact from her after I informed her that I do not manage her pain meds ABD: Obese EXT: less edema ACCOUNTING SPECIALIST: Alert, oriented. no focal neurologic deficit SKIN: No rash IV: port appeared clean Labs Lab Laboratory Tests Test 04/11/16 10:42 04/11/16 12:01 04/11/16 13:56 04/11/16 17:01 Urine Collection Type Unknown Urine Color Yellow Urine Clarity Clear Urine pH 5.0 Urine Specific [place] 1.025 Urine Protein 161.4mg/dL (Not Estab.) Urine Glucose (UA) 250mg/dL (NEG) Urine Ketones (Stick) Tracemg/dL (NEG) Urine Blood Large (NEG) Urine Nitrite Negative (NEG) Urine Bilirubin Negative (NEG) Urine Urobilinogen Dipstick 0.2mg/dL (0.2 mg/dL) Urine Leukocyte Esterase Negative (NEG) Urine RBC 11-20/HPF (0-2) Urine WBC 5-10/HPF (0-4) Urine Squamous Epithelial Cells Few/LPF Urine Bacteria Few/HPF (0-FEW) Urine Hyaline Casts Many/HPF Urine Random Sodium 36mmol/L (Not Estab.) Urine Creatinine 130.0mg/dL (Not Estab.) Urine Protein/Creatinine Ratio 1242mg/g creat (0-200) Glucose (Fingerstick) 146mg/dL (70-99) 116mg/dL (70-99) 148mg/dL (70-99) Test 04/11/16 23:00 04/12/16 07:52 Glucose (Fingerstick) 226mg/dL (70-99) 281mg/dL (70-99) Objective Assessment Right Buttock abscess s/p I and D 04/07 cult Group B strep. Will not allow eval Loose stool Leukocytosis -better Anemia - stable Substance abuse INOCENCIA - does self cath DM ? Personality Disorder -demanding off abx Plan Plan of Care ID to sign off PAL RIOS MD Apr 12, 2016 08:30
[2016-04-12] MEDS: NICOTINE 21MG PATCH. TD SCH (08:36)
[2016-04-12] MEDS: PANTOPRAZOLE 40 MG TABLET. PO SCH (08:37)
[2016-04-12] MEDS: METOPROLOL TART IMMED RELEASE 25 MG TABLET PO SCH ×2 (08:37→20:39)
[2016-04-12] MEDS: LACTOBACILLUS ACIDOPH & BULGAR 1 TABLET. PO SCH ×3 (08:37→17:37)
[2016-04-12] MEDS: GABAPENTIN 300 MG CAPSULE. PO SCH ×2 (08:38→20:38)
[2016-04-12] MEDS: AMLODIPINE BESYLATE 10 MG TABLET PO SCH (08:39)
[2016-04-12] MEDS: OXYCODONE/APAP 10/325 TABLET. PO SCH ×3 (08:39→20:40)
[2016-04-12] MEDS: INSULIN ASPART 300 UNITS/3 ML INSULN.PEN SQ SCH ×3 (08:45→17:00)
[2016-04-12] MEDS: INSULIN DETEMIR 300 UNITS/3 ML INSULN.PEN. SQ SCH ×2 (08:46→21:03)
--- NOTE | 2016-04-12 09:35 | PN ---
DATE: 04/11/2016 SUBJECTIVE: The patient is resting slightly propped up in bed, complaining of diarrhea and also severe back pain. Her stool was negative for C. diff. She is off the Lasix drip. PHYSICAL EXAMINATION: GENERAL: When I examined her, she looked well and was clearly in no apparent respiratory distress, pale, but no jaundice, cyanosis, or thyromegaly. No jugular venous distention. No generalized anasarca. VITAL SIGNS: Her heart rate was 111, blood pressure was 147/99, temperature was 97.9, respiratory rate was 18, and oxygen saturation was 93% on 2-1/2 liters of oxygen. HEAD, EYES, EARS, NOSE, AND THROAT: Showed normocephalic, atraumatic. NECK: Supple. HEART: Showed normal first and second heart sounds. No gallop, rub, or murmur. CHEST: Clear to auscultation. No crepitation or rhonchi. ABDOMEN: Distended, soft, nontender. No guarding or rigidity. No organomegaly. Hernial orifices intact. Bowel sounds normal. NEUROLOGIC: She was awake, alert, responding appropriately. Cranial nerves intact. She moves all extremities without difficulty. She ambulates without assistance or assistive devices. She has an indwelling Michel catheter. LABORATORY DATA: Her lab work this morning showed that her white cell count was 9000, hemoglobin 7.8, hematocrit 24.3, MCV 92, and platelet count of 368,000. Her chemistry this morning showed a serum sodium 142, potassium 4.3, chloride 103, bicarbonate 27, anion gap of 12, BUN of 20, creatinine 2.1, estimated GFR was 33 mL/minute. Her glucose was 289, calcium was 8.3, phosphorus was 4.1, magnesium was 1.9, and albumin has risen to 3.9. Her stool for C. diff toxins was negative. ASSESSMENT: 1. Acute renal failure and chronic kidney disease, likely due to diabetic nephropathy. The patient has right gluteal abscess, status post incision and drainage. Culture grew beta hemolytic streptococci group B. She was on Unasyn 3 g IV q. 8h. 2. Anemia, status post blood transfusion. Her hemoglobin and hematocrit are stable today at 7.8 and 24. 3. Type 1 diabetes with multiple complications. 4. Neurogenic bladder requiring self-catheterization. Apparently, the kidney specialist decided to stop her Lasix drip and she is now collecting a 24-hour urine to evaluate the proteinuria as well as the creatinine clearance. ETHAN LAW MD DR: LEXIS/indira JOB#: [id number] / [id number]
[2016-04-12 11:03] LABS: BASO # 0.1 x10^3/uL (0.0-0.2); BASO % 1 % (0-3); EOS % 3 % (0-3); LYMPH # 1.5 x10^3/uL (1.0-4.8); LYMPH % 15 % (24-48); MEAN CORPUSCULAR HEMOGLOBIN 30 pg (25-35); MEAN CORPUSCULAR HGB CONC 34 g/dL (31-37); MEAN CORPUSCULAR VOLUME 89 fL (79-100); MONO % 10 % (0-9); NEUT % 72 % (31-73); PLATELET COUNT 393 x10^3/uL (140-400); RED BLOOD COUNT 2.24 x10^6/uL (3.50-5.40); RED CELL DISTRIBUTION WIDTH 15.1 % (11.5-14.5); WHITE BLOOD COUNT 10.1 x10^3/uL (4.0-11.0)
[2016-04-12 11:13] LABS: ALBUMIN 3.5 g/dL (3.4-5.0); CALCIUM 8.1 mg/dL (8.5-10.1); GFR 22.2; PHOSPHORUS 3.9 mg/dL (2.6-4.7); POTASSIUM 4.1 mmol/L (3.5-5.1)
[2016-04-12 11:21] LABS: HEMATOCRIT 19.9 % (36.0-47.0); HEMOGLOBIN 6.7 g/dL (12.0-15.5)
--- NOTE | 2016-04-12 12:59 | PDOC ---
SUBJECTIVE ROS INOCENCIA Concerned about swelling bloating CVS: no Orthopnea, no CP RESP: no SOB, no FLORES GI: no Nausea, no Vomiting : no Dysuria, no Urgency OBJECTIVE Vital Signs Vital Signs Date Time Temp Pulse Resp B/P Pulse Ox O2 Delivery O2 Flow Rate FiO2 04/12/16 11:33 Room Air 04/12/16 10:50 98.5 111 18 117/69 92 98.5 04/12/16 08:39 5.0 I & 0 Intake and Output 04/12/16 07:00 Intake Total 1240 ml Output Total 600 ml Balance 640 ml Intake Oral 1240 ml Output Urine Total 600 ml PHYSICAL EXAM Physical Exam General Appearance: Awake Alert Oriented x 3 In min Distress; ? some facial edema Eyes: VIsion Unchanged Conjunctiva Normal; ? some facial edema EN: No EN Drainage Mucous Memb. moist Neck: ? JVD + JVP Supple no Thyromegaly CVS: S1 S2 ? Murmur No Gallop No Rub +1 Edema Resp: No Rales no Rhonchi no Acc. Muscle use GI: BS +ve NO Bruit Non Tender + Distended (mostly tympanic) : no CVA tenderness; no Suprapubic Tenderness Assessment & Plan ARF: UO is poor also. Noted Abd Distention - IV Albumin x 1L today DEL CID - ? Dehydration DEL CID so will D/c Lasix gtt Abd distention - somewhat better ; discussed with radiology - no ascites - mostly all bowel gas so will request GS to eval (? Post-op Ileus) ^ PA pressures - Cardiology consult reqeusted - Check ODETTE Edema - non- nephrotic range proteinuria per 24-hr Urine; redo 24-hr urine as ordered CKD III/ IV underlying cannot be ruled out as discussed with DPOA (sister) over the phone - she has been seen at [facility] and [facility] in the past for INOCENCIA Low Alb - IV Albumin as ordered due to low Alb LowishMag - 1gm today Neurogenic Bladder - renal us -ve for [place] - juan in place - but pt wants it out and wants to self cath (which she does at home) sev Anemia: Start Epogen. May need IV Fe too once fluid status is optimized HTN: Current BP meds reviewed. Better after diuresis. See orders for changes. Gluteal abscess - s/p I and D byt Gen surgery Discussed Plan of Care and prognosis etc. at length with Pt COMMENT/RELEVANT DATA Meds Current Medications Medications (Trade) Dose Ordered Sig/Ju Start Time Stop Time Status Last Admin Dose Admin Acetaminophen (Tylenol) 650 mg PRN Q4HRS PRN 04/05/16 19:45 Albumin Human 100 ml @ 100 mls/hr TID 04/08/16 14:00 04/11/16 08:59 DC 04/10/16 20:19 100 MLS/HR Amlodipine Besylate (Norvasc) 10 mg DAILY 04/06/16 09:00 04/12/16 08:39 10 MG Amoxicillin/ Clavulanate Potassium (Augmentin 875/ 125mg) 1 tab BID 04/09/16 09:00 04/10/16 08:38 DC 04/09/16 21:03 1 TAB Ampicillin Sodium/ Sulbactam Sodium 3 gm/Sodium Chloride 100 ml @ 200 mls/hr Q8HRS 04/10/16 09:00 04/11/16 08:30 DC 04/11/16 05:33 200 MLS/HR Atorvastatin Calcium (Lipitor) 10 mg QHS 04/06/16 21:00 04/11/16 20:31 10 MG Dextrose 12.5 gm 12.5 gm PRN Q15MIN PRN 04/05/16 22:30 Diphenhydramine HCl (Benadryl) 12.5 mg PRN Q2HR PRN 04/07/16 10:00 04/08/16 09:59 DC Famotidine (Pepcid) 20 mg STK-MED ONCE 04/07/16 08:26 04/07/16 08:27 DC Fentanyl Citrate (Fentanyl 2ml Vial) 50 mcg PRN Q5MIN PRN 04/07/16 10:00 04/08/16 09:59 DC Fentanyl Citrate (Fentanyl 5ml Vial) 250 mcg STK-MED ONCE 04/07/16 08:25 04/07/16 08:26 DC Fluconazole (Diflucan) 100 mg DAILY 04/08/16 10:00 04/10/16 08:38 DC 04/09/16 08:18 100 MG Fluconazole/ Sodium Chloride (Diflucan 100mg/ 50ml Premix) 50 ml @ 100 mls/hr Q24H 04/06/16 11:00 04/08/16 09:57 DC 04/07/16 10:24 100 MLS/HR Furosemide (Lasix) 40 mg 1X ONCE 04/07/16 11:15 04/07/16 11:16 DC 04/07/16 11:31 40 MG Furosemide 40 mg 40 mg [id number] 04/08/16 14:00 04/08/16 14:00 DC Furosemide/Sodium Chloride (Lasix Drip/Iv Sodium Chloride 0.9% 100ml) 100 ml @ 0 mls/hr CONT PRN 04/08/16 12:15 04/11/16 08:59 DC 04/11/16 08:25 5 MLS/HR Gabapentin (Neurontin) 900 mg BID 04/06/16 09:00 04/12/16 08:38 900 MG Hydromorphone HCl (Dilaudid) 0.4 mg PRN Q10MIN PRN 04/07/16 10:00 04/08/16 09:59 DC Hydromorphone HCl 1 mg 1 mg PRN Q3HRS PRN 04/05/16 20:00 04/12/16 10:47 1 MG Insulin Aspart (Novolog) 0-7 UNITS PRN QID 04/05/16 22:30 UNV Insulin Aspart 0-9 UNITS TIDWMEALS 04/06/16 08:00 04/12/16 08:45 7 UNITS Insulin Detemir (Levemir) 20 units BID 04/06/16 09:00 04/12/16 08:46 20 UNITS Lactated Ringer's (Iv Lactated Ringers) 1,000 ml @ 75 mls/hr 1X ONCE 04/07/16 09:00 04/07/16 22:19 DC 04/07/16 08:30 75 MLS/HR Lactobacillus Acidophilus 1 tab 1 tab TIDWMEALS 04/09/16 08:15 04/12/16 08:37 1 TAB Lidocaine HCl 100 mg STK-MED ONCE 04/07/16 08:25 04/07/16 08:26 DC Lidocaine/ Epinephrine (Xylocaine 1%-Epi 1:100,000) 20 ml STK-MED ONCE 04/07/16 07:27 04/07/16 07:28 DC Linezolid (Zyvox Premix) 300 ml @ 300 mls/hr Q12HR 04/05/16 21:00 04/08/16 09:57 DC 04/07/16 21:41 300 MLS/HR Linezolid (Zyvox) 600 mg BID 04/08/16 21:00 04/10/16 08:38 DC 04/09/16 21:03 600 MG Magnesium Sulfate/ Dextrose (Magnesium Sulfate PREMIX 1GM) 100 ml @ 100 mls/hr 1X ONCE 04/10/16 16:00 04/10/16 16:59 DC 04/10/16 16:55 100 MLS/HR Magnesium Sulfate/ Dextrose (Magnesium Sulfate PREMIX 2GM) 50 ml @ 25 mls/hr PRN DAILY PRN 04/06/16 16:00 Meperidine HCl (Demerol) 12.5 mg PRN Q5MIN PRN 04/07/16 10:00 04/08/16 09:59 DC Metoclopramide HCl 10 mg 10 mg STK-MED ONCE 04/07/16 08:26 04/07/16 08:27 DC Metoprolol Tartrate (Lopressor) 25 mg BID 04/06/16 09:00 04/12/16 08:37 25 MG Morphine Sulfate 4 mg PRN Q10MIN PRN 04/07/16 10:00 04/08/16 09:59 DC Nicotine (Nicoderm Cq 21mg) 1 patch DAILY 04/06/16 09:00 04/12/16 08:36 1 PATCH Ondansetron HCl (Zofran) 4 mg PRN Q6HRS PRN 04/05/16 22:30 04/11/16 09:24 4 MG Oxycodone/ Acetaminophen (Percocet 10/325) 2 tab TID 04/05/16 21:00 04/12/16 08:39 2 TAB Pantoprazole Sodium 40 mg 40 mg DAILYAC 04/06/16 07:30 04/12/16 08:37 40 MG Piperacillin Sod/ Tazobactam Sod/ Sodium Chloride (Zosyn/Iv Sodium Chloride 0.9% 50ml) 50 ml @ 100 mls/hr Q6HRS 04/06/16 00:00 04/09/16 08:02 DC 04/09/16 05:53 100 MLS/HR Prochlorperazine Edisylate (Compazine) 5 mg PRN Q6HRS PRN 04/07/16 10:00 04/08/16 09:59 DC Promethazine HCl (Phenergan) 12.5 mg PRN BID PRN 04/05/16 22:30 04/11/16 00:59 12.5 MG Propofol 20 ml @ As Directed STK-MED ONCE 04/07/16 08:26 04/07/16 08:27 DC Sevoflurane (Ultane) 15 ml STK-MED ONCE 04/07/16 08:25 04/07/16 08:26 DC Tamsulosin HCl (Flomax) 0.4 mg QHS 04/06/16 21:00 04/11/16 20:33 0.4 MG Lab Laboratory Tests Test 04/11/16 13:56 04/11/16 17:01 04/11/16 23:00 04/12/16 07:52 Glucose (Fingerstick) 116mg/dL (70-99) 148mg/dL (70-99) 226mg/dL (70-99) 281mg/dL (70-99) Test 04/12/16 10:50 04/12/16 11:39 White Blood Count 10.1x10^3/uL (4.0-11.0) Red Blood Count 2.24x10^6/uL (3.50-5.40) Hemoglobin 6.7g/dL (12.0-15.5) Hematocrit 19.9% (36.0-47.0) Mean Corpuscular Volume 89fL (79-100) Mean Corpuscular Hemoglobin 30pg (25-35) Mean Corpuscular Hemoglobin Concent 34g/dL (31-37) Red Cell Distribution Width 15.1% (11.5-14.5) Platelet Count 393x10^3/uL (140-400) Neutrophils (%) (Auto) 72% (31-73) Lymphocytes (%) (Auto) 15% (24-48) Monocytes (%) (Auto) 10% (0-9) Eosinophils (%) (Auto) 3% (0-3) Basophils (%) (Auto) 1% (0-3) Neutrophils # (Auto) 7.2x10^3uL (1.8-7.7) Lymphocytes # (Auto) 1.5x10^3/uL (1.0-4.8) Monocytes # (Auto) 1.0x10^3/uL (0.0-1.1) Eosinophils # (Auto) 0.3x10^3/uL (0.0-0.7) Basophils # (Auto) 0.1x10^3/uL (0.0-0.2) Sodium Level 141mmol/L (136-145) Potassium Level 4.1mmol/L (3.5-5.1) Chloride Level 104mmol/L (98-107) Carbon Dioxide Level 30mmol/L (21-32) Anion Gap 7 (6-14) Blood Urea Nitrogen 33mg/dL (7-20) Creatinine 3.0mg/dL (0.6-1.0) Estimated GFR (Cockcroft-Gault) 22.2 Glucose Level 244mg/dL (70-99) Calcium Level 8.1mg/dL (8.5-10.1) Phosphorus Level 3.9mg/dL (2.6-4.7) Albumin 3.5g/dL (3.4-5.0) Glucose (Fingerstick) 178mg/dL (70-99) HUGO ZEE MD Apr 12, 2016 12:59
[2016-04-12] MEDS ORDERED: MAGNESIUM SULFATE 1GM 100 ML IV ONE (13:00)
--- NOTE | 2016-04-12 15:02 | RAD ---
Portable abdomen, 04/12/2016: History: Abdominal distention An upright view of the mid and upper abdomen was obtained. The pelvis was not included on this limited exam. No free air is seen in the abdomen. The abdominal gas pattern is unremarkable. There is mild streaky atelectasis/infiltrate in both lung bases. A right Port-A-Cath extends into the right atrium. Blunting of the lateral costophrenic angles suggests presence of a small amount of pleural fluid. IMPRESSION: No acute abdominal abnormality is detected.
[2016-04-12] MEDS ORDERED: DIPHENHYDRAMINE 50 MG/ML VIAL IVP PRN (18:06)
[2016-04-12] MEDS: TAMSULOSIN 0.4 MG CAP.ER.24H. PO SCH (20:39)
[2016-04-12] MEDS: ATORVASTATIN CALCIUM 10 MG TABLET. PO SCH (20:39)
[2016-04-12] MEDS ORDERED: DARBEPOETIN ALFA 60 MCG/0.3 ML DISP.SYRIN. SQ SCH (21:00)
[2016-04-13] MEDS: ALBUMIN HUMAN 5% 250 ML IV PRN ×4 (00:06→06:18)
[2016-04-13] MEDS: HYDROMORPHONE 2 MG/ML VIAL. IV PRN ×4 (00:19→21:20)
[2016-04-13] MEDS: OXYCODONE/APAP 10/325 TABLET. PO PRN ×3 (00:19→18:47)
[2016-04-13 03:25] VITALS: BP 133/83
--- NOTE | 2016-04-13 04:38 | PN ---
DATE: 04/12/2016 SUBJECTIVE: The patient is resting, slightly propped up in bed, in no apparent respiratory distress. She continued to complain of swelling of her leg and abdomen. Her echocardiogram showed that she has severe pulmonary hypertension with pulmonary artery systolic pressure estimated at 63 mm. The patient was seen by the Cardiology team and they recommended right-sided heart catheterization, but she refused and she and her sister are requesting transfer to [facility]. We have already contacted the transfer center and awaiting the call from the physician there and I gave her the other option is to go home on water tablet and to make her own appointment with her game operator at [facility] and she is not accepting that offer so far. PHYSICAL EXAMINATION: GENERAL: When I examined her this afternoon, she looked well and was clearly in no apparent respiratory distress. She was pale, but no jaundice, cyanosis or thyromegaly. She has generalized anasarca. VITAL SIGNS: Her heart rate was 111, blood pressure was 117/69, temperature was 98.5, respiratory rate was 18, and oxygen saturation was 92%. HEAD, EYES, EARS, NOSE AND THROAT: Showed normocephalic, atraumatic. NECK: Supple. HEART: Showed normal first and second heart sounds. No gallop or murmur. CHEST: Clear to auscultation. No crepitation or rhonchi. ABDOMEN: Distended, soft, nontender. No guarding or rigidity. No organomegaly. Hernial orifices intact. Bowel sounds normal. NEUROLOGIC: She is awake, alert, responding appropriately. Cranial nerves intact. She moves extremities without difficulty. She has marked generalized anasarca. Her intake over the last 24 hours was 3600, output was 2000. LABORATORY DATA: Her lab work this morning showed a white cell count 10,100, hemoglobin was 6.7, hematocrit 19.9, MCV 89 and platelet count of 393,000. Her chemistry showed a serum sodium 141, potassium 4.1, chloride 104, bicarbonate 30, anion gap of 7, BUN 33, creatinine 3, estimated GFR was 22 mL/minute, her glucose 144, calcium was 8.1, phosphorus 3.9, and albumin was 3.5. ASSESSMENT: 1. Acute on chronic kidney disease, likely due to diabetic nephropathy. 2. The patient has right gluteal abscess, status post incision and drainage, it did grow beta hemolytic Streptococcus group B. She was on Unasyn 3 g IV q. 8 hourly and it was discontinued. 3. Anemia, status post blood transfusion. Her hemoglobin and hematocrit has dropped down today again to 6.7 and 19.9, and she is scheduled to be transfused 1 unit of packed RBCs. 4. Type 1 diabetes, multiple complications. 5. Neurogenic bladder requiring self-catheterization. PLAN: My plan is to contact the transfer center at [facility] in the [place] and to see if we can transfer her there. I gave her the option to be discharged home on oral diuretics. I am awaiting the call from the physician from [facility]. ETHAN LAW MD DR: LEXIS/indira JOB#: [id number] / [id number]
[2016-04-13 06:58] LABS: HEMATOCRIT 24.1 % (36.0-47.0); RED BLOOD COUNT 2.64 x10^6/uL (3.50-5.40); RED CELL DISTRIBUTION WIDTH 15.3 % (11.5-14.5); WHITE BLOOD COUNT 9.2 x10^3/uL (4.0-11.0)
[2016-04-13 07:00] VITALS: BP 139/90
[2016-04-13 07:15] LABS: ALBUMIN 4.3 g/dL (3.4-5.0); ALBUMIN/GLOBULIN RATIO 1.5 (1.0-1.7); CALCIUM 8.4 mg/dL (8.5-10.1); CREATININE 2.9 mg/dL (0.6-1.0); GFR 23.1; PHOSPHORUS 4.3 mg/dL (2.6-4.7); POTASSIUM 4.7 mmol/L (3.5-5.1); TOTAL BILIRUBIN 0.7 mg/dL (0.2-1.0); TOTAL PROTEIN 7.2 g/dL (6.4-8.2)
[2016-04-13] MEDS: NICOTINE 21MG PATCH. TD SCH (08:30)
[2016-04-13] MEDS: LACTOBACILLUS ACIDOPH & BULGAR 1 TABLET. PO SCH ×3 (08:31→18:05)
[2016-04-13] MEDS: METOPROLOL TART IMMED RELEASE 25 MG TABLET PO SCH ×2 (08:32→21:22)
[2016-04-13] MEDS: AMLODIPINE BESYLATE 10 MG TABLET PO SCH (08:32)
[2016-04-13] MEDS: GABAPENTIN 300 MG CAPSULE. PO SCH ×2 (08:32→21:20)
[2016-04-13] MEDS: PANTOPRAZOLE 40 MG TABLET. PO SCH (08:32)
[2016-04-13] MEDS: OXYCODONE/APAP 10/325 TABLET. PO SCH ×3 (08:33→21:21)
[2016-04-13] MEDS: INSULIN ASPART 300 UNITS/3 ML INSULN.PEN SQ SCH ×3 (08:50→16:48)
[2016-04-13] MEDS: INSULIN DETEMIR 300 UNITS/3 ML INSULN.PEN. SQ SCH ×2 (08:51→21:40)
[2016-04-13 11:00] VITALS: BP 131/78
[2016-04-13] MEDS ORDERED: BUMETANIDE 1 MG/4 ML VIAL. IV ONE (11:30)
[2016-04-13 12:44] LABS: HCO3 ABG 24 mmol/L (21-28); PCO2 ABG 50 mmHg (35-46); PO2 ABG 53 mmHg (85-108); SAT O2 ABG 82 % (92-99)
[2016-04-13 15:00] VITALS: BP 135/86
--- NOTE | 2016-04-13 16:38 | PDOC ---
Provider Note Provider Note RENAL F/U : HARMAN S : Doing better. No new issues except she continues to be very angry and disrespectful in some ways. No c/o of CP, SOA, NVD. O : VSS Afebrile. Alert Neck : Supple. Lungs : Non labored. CVS : RRR ABD : Portly, benign appearing. No distention. Ext. : No major edema. Neuro : No specific focal issues. Labs reviewed. A/P: ARF : Multifactorial. ATN/Sepsis. Support volume. SEPSIS : Rectal abscess. HTN : BP controlled. Ext d/w pt Answered queries. Labs stable. Watch Cr. PROIMSE HAMMER MD Apr 13, 2016 16:38
[2016-04-13] MEDS ORDERED: ALPRAZOLAM 0.25 MG TABLET PO ONE (16:45)
[2016-04-13 19:20] VITALS: BP 145/95
[2016-04-13] MEDS: TAMSULOSIN 0.4 MG CAP.ER.24H. PO SCH (21:20)
[2016-04-13] MEDS: ATORVASTATIN CALCIUM 10 MG TABLET. PO SCH (21:21)
[2016-04-13 23:24] VITALS: BP 138/86
[2016-04-14] MEDS: HYDROMORPHONE 2 MG/ML VIAL. IV PRN ×2 (00:41→03:37)
[2016-04-14] MEDS: OXYCODONE/APAP 10/325 TABLET. PO PRN ×3 (00:41→17:05)
[2016-04-14 03:30] VITALS: BP 107/57
[2016-04-14 06:03] LABS: ALBUMIN 3.9 g/dL (3.4-5.0); ALBUMIN/GLOBULIN RATIO 1.3 (1.0-1.7); CALCIUM 8.4 mg/dL (8.5-10.1); CREATININE 2.3 mg/dL (0.6-1.0); GFR 30.1; POTASSIUM 4.1 mmol/L (3.5-5.1); TOTAL BILIRUBIN 0.3 mg/dL (0.2-1.0)
[2016-04-14 07:40] VITALS: BP 94/47
[2016-04-14] MEDS: INSULIN ASPART 300 UNITS/3 ML INSULN.PEN SQ SCH ×3 (07:42→17:00)
[2016-04-14] MEDS: LACTOBACILLUS ACIDOPH & BULGAR 1 TABLET. PO SCH ×3 (08:17→17:05)
[2016-04-14] MEDS: PANTOPRAZOLE 40 MG TABLET. PO SCH (08:17)
[2016-04-14] MEDS: NICOTINE 21MG PATCH. TD SCH (08:17)
[2016-04-14] MEDS: OXYCODONE/APAP 10/325 TABLET. PO SCH ×3 (08:18→20:09)
[2016-04-14] MEDS: AMLODIPINE BESYLATE 10 MG TABLET PO SCH (08:18)
[2016-04-14] MEDS: METOPROLOL TART IMMED RELEASE 25 MG TABLET PO SCH ×2 (08:18→20:08)
[2016-04-14] MEDS: GABAPENTIN 300 MG CAPSULE. PO SCH (08:19)
[2016-04-14] MEDS: INSULIN DETEMIR 300 UNITS/3 ML INSULN.PEN. SQ SCH ×2 (08:23→20:16)
[2016-04-14 09:10] LABS: TOTAL SERUM CREATININE 3.21 mg/dL (0.57-1.00); TOTAL URINE CREATININE 170.1 mg/dL (Not Estab.)
[2016-04-14 10:56] VITALS: BP 150/97
--- NOTE | 2016-04-14 11:01 | PDOC ---
Provider Note Provider Note dictated abnormal ABG due to hypoventilation from narcotics repeat ABG today/ may need BIPAP ERWIN LOUISE MD Apr 14, 2016 11:01
[2016-04-14 11:14] LABS: PROTEIN 24 HR UR 1204.8 mg/24 hr (30.0-150.0)
--- NOTE | 2016-04-14 11:23 | RAD ---
Portable chest, 04/14/2016: History: Hypoxia, shortness of breath No previous chest radiograph is available at this time for comparison purposes. A right Port-A-Cath extends to the level of the atriocaval junction. The heart is at the upper limits of normal in size. There are moderate patchy bilateral pulmonary infiltrates. The underlying pulmonary vascularity is poorly defined. The findings suggest pulmonary edema. Pneumonia is less likely. There are small bilateral pleural effusions. IMPRESSION: Bilateral pulmonary infiltrates most compatible with pulmonary edema with a small amount of associated bilateral pleural fluid.
--- NOTE | 2016-04-14 11:58 | CONS ---
DATE OF CONSULTATION: ATTENDING PHYSICIAN: Michael Sal M.D. REASON FOR CONSULTATION: Abnormal ABGs. HISTORY OF PRESENT ILLNESS: The patient is a 30-year-old -[place] female who has smoked for 20 years, she said she quit 2 weeks ago. She was hospitalized for right gluteal abscess. The patient underwent I and D. She has been treated for group beta hemolytic Streptococcus B infection. I have been asked to see her for further evaluation of her abnormal ABGs, which was done yesterday and showed a pH of 7.30, pCO2 of 50 and a pO2 of 53 on 3 liters of oxygen. Review of her medications reveals that she is on oxycodone 2 tablets t.i.d. and also one tablet p.r.n. She still complains of pain. She is not short of breath. She is fully awake. She is following commands. Her chest x-ray has been ordered and is pending. She is currently requiring 4 liters of oxygen, saturation is 95%. She has acute renal failure for which Nephrology has been following, her BUN is 40 and creatinine of 2.3. The bicarbonate today is 31. I have been asked to see her for further evaluation. PAST MEDICAL HISTORY: Significant for history of possible underlying COPD, history of hypertension, history of type 1 diabetes, history of diabetic ketoacidosis, neurogenic bladder, diabetic nephropathy, and neuropathy. PAST SURGICAL HISTORY: . History of Port-A-Cath placement in the past. FAMILY HISTORY: Positive for type 2 diabetes. SOCIAL HISTORY: Smoked for 20 years before quitting 2 weeks ago. Does not drink alcohol. REVIEW OF SYSTEMS: Twelve-point systems obtained. Pertinent positives discussed in the history of present illness, otherwise noncontributory. All systems that were negative were reviewed as well. MEDICATIONS: All reviewed as listed in the MRAD. PHYSICAL EXAMINATION: GENERAL: She is awake, following commands. VITAL SIGNS: Pulse ox 95% on 4 liters. She is afebrile. Blood pressure 94 systolic. NECK: Supple. LUNGS: Clear. CARDIOVASCULAR: Regular rate and rhythm. ABDOMEN: Soft. Abdomen is bloated. EXTREMITIES: Reveal bilateral pitting edema. LABORATORY DATA: Reviewed. BUN 40 and a creatinine of 2.3. Her albumin is 3.9. Her white cell count is 9.2; hemoglobin 8.0, which was 6.7 on 04/12/2016; and platelets are 324. IMPRESSION: 1. Abnormal arterial blood gases consistent with hypoventilation from the use of narcotics and underlying obesity with suspected obesity-hypoventilation syndrome. She is currently on oxycodone on a scheduled basis. She is in pain secondary to the incision and drainage performed on her gluteal area. 2. Possible underlying chronic obstructive pulmonary disease. 3. Anemia, being followed by primary care physician. 4. Acute on chronic renal failure. RECOMMENDATIONS: 1. At this point, her pain needs are persistent. I did advise her that I would obtain arterial blood gases if the respiratory acidosis does not improve or worsen, then I would place her on a BiPAP and she is agreeable with that. 2. Minimize the narcotics if possible. 3. P.r.n. bronchodilators. 4. Follow hemoglobin. 5. Follow renal function per Nephrology. 6. We will follow along with you. ERWIN LOUISE MD DR: GISSELLE/indira JOB#: [id number] / [id number] CONSTANCE
[2016-04-14 12:11] LABS: HCO3 ABG 27 mmol/L (21-28); PCO2 ABG 53 mmHg (35-46); PH ABG 7.31 (7.35-7.45); PO2 ABG 57 mmHg (85-108); SAT O2 ABG 85 % (92-99)
[2016-04-14] MEDS ORDERED: BUMETANIDE 1 MG/4 ML VIAL. IV SCH (14:00)
[2016-04-14] MEDS: BUMETANIDE 1 MG/4 ML VIAL. IV SCH (14:03)
[2016-04-14 14:55] VITALS: BP 143/99
[2016-04-14 15:51] LABS: HCO3 ABG 25 mmol/L (21-28); PCO2 ABG 47 mmHg (35-46); PH ABG 7.34 (7.35-7.45)
[2016-04-14 15:57] LABS: PO2 ABG < 42 mmHg (85-108); SAT O2 ABG 58 % (92-99)
[2016-04-14 15:59] LABS: FIO2 ABG 30
[2016-04-14 19:00] VITALS: BP 151/98
[2016-04-14] MEDS: GABAPENTIN 400 MG CAPSULE. PO SCH (20:07)
[2016-04-14] MEDS: ATORVASTATIN CALCIUM 10 MG TABLET. PO SCH (20:07)
[2016-04-14] MEDS: TAMSULOSIN 0.4 MG CAP.ER.24H. PO SCH (20:07)
[2016-04-14] MEDS: ONDANSETRON PF 4 MG/2 ML VIAL. IV PRN (22:02)
[2016-04-14 23:14] VITALS: BP 124/53
--- NOTE | 2016-04-14 23:49 | PDOC ---
Provider Note Provider Note RENAL F/U : HARMAN S : Doing better overall. Resting. No new issues except she continues to be very angry and disrespectful in some ways. No new c/o of CP, SOA, NVD. O : VSS Afebrile. Alert Neck : Supple. Lungs : Non labored. CVS : RRR ABD : Portly, benign appearing. No distention. Ext. : No major edema. Neuro : No specific focal issues. Labs reviewed. A/P: ARF : Multifactorial. ATN/sepsis. Improving with IVF. SEPSIS : Rectal abscess. Per primary team. On ABX HTN : BP controlled. Labs stable/improved. Watch Cr. PROMISE HAMMER MD Apr 14, 2016 23:49
--- NOTE | 2016-04-15 00:06 | PN ---
DATE: 04/05/2016 SUBJECTIVE: The patient is resting, propped up in bed, continued to complain of severe back pain. She is on 3 liters of oxygen, maintaining oxygen saturation at ____. We did treat her yesterday with Bumex. PHYSICAL EXAMINATION: GENERAL: When I examined her this morning, she was resting slightly propped up in bed, in no apparent respiratory distress. She was pale, but not jaundiced, cyanosis. No jugular venous distention. She has generalized anasarca. VITAL SIGNS: Her heart rate was 62, blood pressure was 94/47, temperature was 97.9, respiratory rate was 18 and oxygen saturation was 84% on 3 liters of oxygen. HEAD, EYES, EARS, NOSE AND THROAT: Showed normocephalic, atraumatic. NECK: Supple. HEART: Showed normal first and second heart sounds with no gallop, rub or murmur. CHEST: Clear to auscultation. No crepitation or rhonchi. ABDOMEN: Distended, soft, nontender. No guarding or rigidity. No organomegaly. Hernial orifices intact. Bowel sounds normal. NEUROLOGIC: She is awake, alert, responding appropriately. Cranial nerves intact. She moves extremities without difficulty. Her intake over the last 24 hours was ____, output was 2000. LABORATORY DATA: As of yesterday showed a white cell count of 9200, hemoglobin 8, hematocrit 24, MCV 91, and platelet count 324,000. Her chemistry showed a serum sodium 143, potassium 4.1, chloride 106, bicarbonate 31, anion gap of 6, BUN 40, creatinine 2.3, estimated GFR was 30 mL per minute. Her glucose was 106, calcium was 8.4. Total bilirubin is normal. AST, ALT, alkaline phosphatase are elevated. Her liver enzymes are elevated and rising. Her total protein was 7, albumin was 3.9. Her blood gases yesterday showed a pH of 7.30, pCO2 of 50, pO2 of 53, bicarbonate 24, and oxygen saturation was 82% on 3 liters of oxygen by nasal cannula. ASSESSMENT: 1. Acute on chronic kidney disease, likely due to diabetic nephropathy, improving and other factors improving. Her creatinine is down from high of 3.2, down to 2.3. 2. Right gluteal abscess status post incision and drainage. She did grow beta hemolytic streptococci group B that she was treated with Unasyn and oral Augmentin and complete the course of treatment. 3. Anemia, status post blood transfusion. Her hemoglobin and hematocrit has dropped down to 6.7 and 19.9. As of yesterday, her hemoglobin was 8, hematocrit 24. 4. Type 1 diabetes with multiple complication. 5. Neurogenic bladder requiring self catheterization. 6. Excessive narcotic use with probably causing carbon dioxide retention and ____. PLAN: My plan is to discontinue the hydromorphone, diphenhydramine, cut down the gabapentin. I will arrange for her to have a chest x-ray, consult the nurse rn bsn, she might require BiPAP machine. Repeat all her lab works tomorrow and await the transfer to [facility]. ETHAN LAW MD DR: LEXIS/indira JOB#: [id number] / [id number]
[2016-04-15] MEDS: OXYCODONE/APAP 10/325 TABLET. PO PRN (00:09)
[2016-04-15 07:00] VITALS: BP 122/72
[2016-04-15] MEDS: INSULIN ASPART 300 UNITS/3 ML INSULN.PEN SQ SCH (08:00)
[2016-04-15 08:17] LABS: BASO % 0 % (0-3); EOS % 1 % (0-3); HEMOGLOBIN 7.3 g/dL (12.0-15.5); LYMPH # 1.3 x10^3/uL (1.0-4.8); LYMPH % 13 % (24-48); MEAN CORPUSCULAR HEMOGLOBIN 30 pg (25-35); MEAN CORPUSCULAR HGB CONC 33 g/dL (31-37); MEAN CORPUSCULAR VOLUME 92 fL (79-100); MONO % 11 % (0-9); NEUT % 75 % (31-73); PLATELET COUNT 330 x10^3/uL (140-400); RED CELL DISTRIBUTION WIDTH 15.3 % (11.5-14.5)
[2016-04-15 08:42] LABS: ALBUMIN 3.6 g/dL (3.4-5.0); CALCIUM 8.8 mg/dL (8.5-10.1); GFR 35.4; POTASSIUM 4.3 mmol/L (3.5-5.1); TOTAL BILIRUBIN 0.4 mg/dL (0.2-1.0); TOTAL PROTEIN 7.2 g/dL (6.4-8.2)
[2016-04-15] MEDS: LACTOBACILLUS ACIDOPH & BULGAR 1 TABLET. PO SCH (08:46)
[2016-04-15] MEDS: GABAPENTIN 400 MG CAPSULE. PO SCH (08:46)
[2016-04-15] MEDS: OXYCODONE/APAP 10/325 TABLET. PO SCH (08:46)
[2016-04-15] MEDS: METOPROLOL TART IMMED RELEASE 25 MG TABLET PO SCH (08:46)
[2016-04-15] MEDS: NICOTINE 21MG PATCH. TD SCH (08:47)
[2016-04-15] MEDS: BUMETANIDE 1 MG/4 ML VIAL. IV SCH ×2 (08:47→09:00)
[2016-04-15] MEDS: PANTOPRAZOLE 40 MG TABLET. PO SCH (08:47)
[2016-04-15] MEDS: AMLODIPINE BESYLATE 10 MG TABLET PO SCH (08:47)
[2016-04-15] MEDS ORDERED: ALPRAZOLAM 0.5 MG TABLET PO ONE (09:30)
[2016-04-15] MEDS: INSULIN DETEMIR 300 UNITS/3 ML INSULN.PEN. SQ SCH (10:02)
[2016-04-15] MEDS ORDERED: BUMETANIDE 1 MG TABLET PO SCH (10:15)
[2016-04-15 11:00] VITALS: BP 131/85
--- NOTE | 2016-04-15 11:02 | PDOC ---
PULMONARY PROGRESS NOTES Subjective crying used BIPAP all night Vitals Vital Signs Date Time Temp Pulse Resp B/P Pulse Ox O2 Delivery O2 Flow Rate FiO2 04/15/16 08:47 105 122/72 04/15/16 08:46 93 5.0 04/15/16 07:00 97.3 20 BiPAP/CPAP 97.3 General: Alert, No acute distress Lungs: Other (few rhonchi) Cardiovascular: S1 Abdomen: Soft Neuro Exam: Alert Extremities: Other (2+edema) Skin: Warm Labs Laboratory Tests Test 04/13/16 11:53 04/13/16 12:30 04/13/16 16:34 04/13/16 21:16 Glucose (Fingerstick) 177mg/dL (70-99) 150mg/dL (70-99) 153mg/dL (70-99) O2 Saturation 82% (92-99) Arterial Blood pH 7.30 (7.35-7.45) Arterial Blood pCO2 at Patient Temp 50mmHg (35-46) Arterial Blood pO2 at Patient Temp 53mmHg (85-108) Arterial Blood HCO3 24mmol/L (21-28) Arterial Blood Base Excess -3mmol/L (-3-3) FiO2 3 lpm nc Test 04/13/16 23:30 04/14/16 03:22 04/14/16 05:10 04/14/16 05:57 Urine Protein 75.3mg/dL (Not Estab.) Urine Creatinine 24 Hour 104.5mg/dL (Not Estab.) Urine Creatinine mg/24 hr 1672mg/24 hr (800-1800) Urine Protein 24 Hr Calculated 1204.8mg/24 hr (30.0-150.0) Glucose (Fingerstick) 101mg/dL (70-99) 82mg/dL (70-99) Sodium Level 143mmol/L (136-145) Potassium Level 4.1mmol/L (3.5-5.1) Chloride Level 106mmol/L (98-107) Carbon Dioxide Level 31mmol/L (21-32) Anion Gap 6 (6-14) Blood Urea Nitrogen 40mg/dL (7-20) Creatinine 2.3mg/dL (0.6-1.0) Estimated GFR (Cockcroft-Gault) 30.1 BUN/Creatinine Ratio 17 (6-20) Glucose Level 106mg/dL (70-99) Calcium Level 8.4mg/dL (8.5-10.1) Total Bilirubin 0.3mg/dL (0.2-1.0) Aspartate Amino Transf (AST/SGOT) 105U/L (15-37) Alanine Aminotransferase (ALT/SGPT) 173U/L (14-59) Alkaline Phosphatase 270U/L (46-116) Total Protein 7.0g/dL (6.4-8.2) Albumin 3.9g/dL (3.4-5.0) Albumin/Globulin Ratio 1.3 (1.0-1.7) Test 04/14/16 07:31 04/14/16 11:15 04/14/16 12:00 04/14/16 15:40 Glucose (Fingerstick) 134mg/dL (70-99) 137mg/dL (70-99) O2 Saturation 85% (92-99) 58% (92-99) Arterial Blood pH 7.31 (7.35-7.45) 7.34 (7.35-7.45) Arterial Blood pCO2 at Patient Temp 53mmHg (35-46) 47mmHg (35-46) Arterial Blood pO2 at Patient Temp 57mmHg (85-108) < 42mmHg (85-108) Arterial Blood HCO3 27mmol/L (21-28) 25mmol/L (21-28) Arterial Blood Base Excess 0mmol/L (-3-3) -1mmol/L (-3-3) FiO2 5 lpm nc 30 Test 04/14/16 16:45 04/14/16 20:09 04/15/16 07:30 04/15/16 08:06 Glucose (Fingerstick) 125mg/dL (70-99) 187mg/dL (70-99) 64mg/dL (70-99) White Blood Count 10.0x10^3/uL (4.0-11.0) Red Blood Count 2.40x10^6/uL (3.50-5.40) Hemoglobin 7.3g/dL (12.0-15.5) Hematocrit 22.0% (36.0-47.0) Mean Corpuscular Volume 92fL (79-100) Mean Corpuscular Hemoglobin 30pg (25-35) Mean Corpuscular Hemoglobin Concent 33g/dL (31-37) Red Cell Distribution Width 15.3% (11.5-14.5) Platelet Count 330x10^3/uL (140-400) Neutrophils (%) (Auto) 75% (31-73) Lymphocytes (%) (Auto) 13% (24-48) Monocytes (%) (Auto) 11% (0-9) Eosinophils (%) (Auto) 1% (0-3) Basophils (%) (Auto) 0% (0-3) Neutrophils # (Auto) 7.5x10^3uL (1.8-7.7) Lymphocytes # (Auto) 1.3x10^3/uL (1.0-4.8) Monocytes # (Auto) 1.1x10^3/uL (0.0-1.1) Eosinophils # (Auto) 0.1x10^3/uL (0.0-0.7) Basophils # (Auto) 0.0x10^3/uL (0.0-0.2) Sodium Level 143mmol/L (136-145) Potassium Level 4.3mmol/L (3.5-5.1) Chloride Level 106mmol/L (98-107) Carbon Dioxide Level 28mmol/L (21-32) Anion Gap 9 (6-14) Blood Urea Nitrogen 43mg/dL (7-20) Creatinine 2.0mg/dL (0.6-1.0) Estimated GFR (Cockcroft-Gault) 35.4 BUN/Creatinine Ratio 22 (6-20) Glucose Level 75mg/dL (70-99) Calcium Level 8.8mg/dL (8.5-10.1) Total Bilirubin 0.4mg/dL (0.2-1.0) Aspartate Amino Transf (AST/SGOT) 158U/L (15-37) Alanine Aminotransferase (ALT/SGPT) 196U/L (14-59) Alkaline Phosphatase 323U/L (46-116) Total Protein 7.2g/dL (6.4-8.2) Albumin 3.6g/dL (3.4-5.0) Albumin/Globulin Ratio 1.0 (1.0-1.7) Test 04/15/16 10:29 Glucose (Fingerstick) 95mg/dL (70-99) Laboratory Tests Test 04/14/16 11:15 04/14/16 12:00 04/14/16 15:40 04/14/16 16:45 Glucose (Fingerstick) 137mg/dL (70-99) 125mg/dL (70-99) O2 Saturation 85% (92-99) 58% (92-99) Arterial Blood pH 7.31 (7.35-7.45) 7.34 (7.35-7.45) Arterial Blood pCO2 at Patient Temp 53mmHg (35-46) 47mmHg (35-46) Arterial Blood pO2 at Patient Temp 57mmHg (85-108) < 42mmHg (85-108) Arterial Blood HCO3 27mmol/L (21-28) 25mmol/L (21-28) Arterial Blood Base Excess 0mmol/L (-3-3) -1mmol/L (-3-3) FiO2 5 lpm nc 30 Test 04/14/16 20:09 04/15/16 07:30 04/15/16 08:06 04/15/16 10:29 Glucose (Fingerstick) 187mg/dL (70-99) 64mg/dL (70-99) 95mg/dL (70-99) White Blood Count 10.0x10^3/uL (4.0-11.0) Red Blood Count 2.40x10^6/uL (3.50-5.40) Hemoglobin 7.3g/dL (12.0-15.5) Hematocrit 22.0% (36.0-47.0) Mean Corpuscular Volume 92fL (79-100) Mean Corpuscular Hemoglobin 30pg (25-35) Mean Corpuscular Hemoglobin Concent 33g/dL (31-37) Red Cell Distribution Width 15.3% (11.5-14.5) Platelet Count 330x10^3/uL (140-400) Neutrophils (%) (Auto) 75% (31-73) Lymphocytes (%) (Auto) 13% (24-48) Monocytes (%) (Auto) 11% (0-9) Eosinophils (%) (Auto) 1% (0-3) Basophils (%) (Auto) 0% (0-3) Neutrophils # (Auto) 7.5x10^3uL (1.8-7.7) Lymphocytes # (Auto) 1.3x10^3/uL (1.0-4.8) Monocytes # (Auto) 1.1x10^3/uL (0.0-1.1) Eosinophils # (Auto) 0.1x10^3/uL (0.0-0.7) Basophils # (Auto) 0.0x10^3/uL (0.0-0.2) Sodium Level 143mmol/L (136-145) Potassium Level 4.3mmol/L (3.5-5.1) Chloride Level 106mmol/L (98-107) Carbon Dioxide Level 28mmol/L (21-32) Anion Gap 9 (6-14) Blood Urea Nitrogen 43mg/dL (7-20) Creatinine 2.0mg/dL (0.6-1.0) Estimated GFR (Cockcroft-Gault) 35.4 BUN/Creatinine Ratio 22 (6-20) Glucose Level 75mg/dL (70-99) Calcium Level 8.8mg/dL (8.5-10.1) Total Bilirubin 0.4mg/dL (0.2-1.0) Aspartate Amino Transf (AST/SGOT) 158U/L (15-37) Alanine Aminotransferase (ALT/SGPT) 196U/L (14-59) Alkaline Phosphatase 323U/L (46-116) Total Protein 7.2g/dL (6.4-8.2) Albumin 3.6g/dL (3.4-5.0) Albumin/Globulin Ratio 1.0 (1.0-1.7) Medications Active Scripts Medications Dose Route/Sig Days Date Category Percocet 10-325 Mg Tablet (Oxycodone/Acetaminophen) 1 Each Tablet 2 Tab PO TID 04/05/16 Reported Percocet 10-325 Mg Tablet (Oxycodone/Acetaminophen) 1 Each Tablet 1 Tab PO Q6HRS PRN 04/05/16 Reported Hydromorphone 2 Mg/Ml Syringe (Hydromorphone Hcl) 2 Mg/1 Ml Disp.syrin 1 Mg IV Q3HRS PRN 04/05/16 Reported Amlodipine Besylate 10 Mg Tablet 10 Mg PO DAILY 04/05/16 Reported Tylenol (Acetaminophen) 325 Mg Tablet 650 Mg PO Q4HRS PRN 04/05/16 Reported Impression . 1. Abnormal arterial blood gases consistent with hypoventilation from the use of narcotics and underlying obesity with suspected obesity-hypoventilation syndrome. She is currently on oxycodone on a scheduled basis. She is in pain secondary to the incision and drainage performed on her gluteal area. 2. Possible underlying chronic obstructive pulmonary disease. 3. Anemia, being followed by primary care physician. 4. Acute on chronic renal failure. 5. Abnormal CXR c/w conrado-hilar edema Plan . 1. BiPAP qhs ,nasal canula during day 2. Minimize the narcotics if possible. 3. P.r.n. bronchodilators. 4. Follow hemoglobin. 5. Follow renal function per Nephrology. 6. Diuresis, low dose with close monitoring of renal function 7. RN reports pt may be transfer to [facility] ERWIN LOUISE MD Apr 15, 2016 11:02
[2016-04-15] MEDS ORDERED: FUROSEMIDE 20 MG/2 ML VIAL IVP ONE (11:15)
--- NOTE | 2016-04-15 21:57 | DS ---
DATE OF DISCHARGE: 04/15/2016 HOSPITAL COURSE: The patient excellent is a 30-year-old -[place] female patient who was originally admitted to [facility] complaining of pain in her right gluteal area and back pain. She complained that her blood sugars were high. She also thought she had UTI and complained of dysuria and frequency. She was extensively investigated in the Emergency Room, was found to have right gluteal abscess/cellulitis. She has a neurogenic bladder with urinary retention, for which she does self-catheterize. Her blood sugar was markedly elevated. She also has marked leukocytosis. Her white cell count was 16,000 and was admitted with poorly controlled blood sugar, right gluteal abscess/cellulitis, as well as possible urinary tract infection. Her urinalysis however was unremarkable. Urine culture did not show any growth. The right gluteal area was markedly indurated, the induration extends to the right labia; however, the ultrasound showed no drainable fluid collection in the first ultrasound; however, in the second ultrasound done 2 days later, the ultrasound showed that there is an edematous soft tissue in the right labia and buttocks region. In addition, there are some focal hypoechoic lesion seen within the subcutaneous soft tissue consistent with an abscess formation. We did start her empirically on IV Zosyn and vancomycin through her Port-A-Cath. Unfortunately, her serum creatinine has steadily risen from 1.5-2.2, and given that she might require surgical ____, her kidney function as well as her liver function have slightly worsened, we transferred her to [facility], where she was seen by the surgical team and the right gluteal abscess was incised and drained, and she did grew eventually group B hemolytic streptococci sensitive to penicillin and she was treated with IV Unasyn and eventually oral Augmentin and she completed the course of treatment. She has been afebrile. Her white cell count came down from 20,000-10,000. Her serum creatinine has steadily risen and went up all the way to 3.2. She also has gained a lot of weight and we did start her on 25% human albumin as well as Lasix drip. Her kidney function has steadily improved, in fact it came down to 2 mg of this morning. She has also anemia, for which she received at least 2 units of packed RBCs. She continued to have generalized anasarca and her pulmonary arterial pressure was high. We did consult the prevention rn to see her; however, she refused to allow them to examine her, although she did have an echocardiogram, which showed that she has elevated arterial pressure, her left ventricular systolic function was normal, ejection fraction was within normal range of 60-65%. She has normal left ventricular segmental wall motion abnormalities. Her Doppler and color flow revealed mild mitral regurgitation. Doppler and color flow revealed mild tricuspid regurgitation. The pulmonary artery systolic pressure was estimated at 63 mmHg. There is moderate pulmonary hypertension. The IVC is normal in size and collapses less than 50% with inspiration. The patient has been complaining of a lot of back pain and she has been on multiple narcotics that we cut down. She also complained of shortness of breath. Her blood gases revealed that she is hypoxic and was retaining carbon dioxide and therefore I did consult Dr. Gaspar who started her on BiPAP machine. The patient and her sister requested to be transferred to [facility]. 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 PHYSICAL EXAMINATION: GENERAL: When I saw her this morning, she was resting slightly propped up in bed, in no apparent respiratory distress. She was slightly pale, but no jaundice, cyanosis, or thyromegaly. No jugular venous distention. No limb edema. VITAL SIGNS: Her heart rate was 105, blood pressure was 122/72, temperature was 97.3, respiratory rate was 20, and her oxygen saturation was 93% on 5 liters of oxygen. HEAD, EYES, EARS, NOSE AND THROAT: Showed normocephalic, atraumatic. NECK: Supple. HEART: Showed normal first and second heart sounds with no gallop, rub or murmur. CHEST: Clear to auscultation. No crepitation or rhonchi. ABDOMEN: Distended, soft, nontender. No guarding or rigidity. No organomegaly. Hernial orifices intact. Bowel sounds normal. NEUROLOGICAL: She was awake, alert, responding appropriately. Cranial nerves intact. She moves extremities without difficulty. She ambulates without assistance or assistive devices. She continues to have anasarca. LABORATORY DATA: Her lab work this morning showed that her white cell count was 10,000, hemoglobin 7.3, hematocrit 22, MCV 92, and platelet count of 330,000 with normal manual differential. Her chemistry showed a serum sodium 143, potassium 4.3, chloride 106, bicarbonate 28, anion gap of 9, BUN 43, creatinine 2. Estimated GFR was 35 mL per minute. Her glucose was 75. Calcium was 8.8. Her total bilirubin is normal at 0.4; however, AST, ALT, alkaline phosphatase are elevated and rising. Her total protein was 7.2, albumin was 3.6. Her blood gases as of yesterday morning showed pH of 7.34, pCO2 of 47, pO2 of 42 and oxygen saturation was 58% on FiO2 of 30%. DISCHARGE MEDICATIONS: The patient will be transferred to [facility] to continue on atorvastatin 10 mg once a day, darbepoetin nicki 60 mcg subcutaneously once a week, diphenhydramine 50 mg IV every 4 hours, gabapentin 300 mg 3 times a day. She is on Levemir insulin 20 units subcutaneous at bedtime, Lactobacillus acidophilus 1 capsule 3 times a day, metoprolol tartrate 25 mg b.i.d., oxycodone 10 mg 2 tablets 3 times a day, Protonix 40 mg once a day, tamsulosin for Flomax 0.4 mg at bedtime. She is also on Tylenol 650 mg every 4 hours, amlodipine 10 mg once a day, hydromorphone. She is also on hydromorphone 1 mg IV every 3 hours and oxycodone 10/325 mg one tablet every 6 hours. FINAL DISCHARGE DIAGNOSES: 1. Acute on chronic kidney injury, resolving. Her creatinine came down from 3.2-2 mg/dL. 2. Right gluteal abscess status post incision and drainage. She grew beta hemolytic streptococci. Treated with IV Unasyn and oral Augmentin and resolved. 3. 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 4. Chronic kidney disease, most likely due to diabetic nephropathy. 5. Anemia, most likely due to underlying kidney disease for which she is on ferrous sulfate and Aranesp. 6. Acute hypoxic hypercapnic respiratory failure, most likely due to excessive use of narcotics with underlying obesity and hypoventilation syndrome. She has pulmonary hypertension, generalized anasarca and abnormal liver enzymes, although her hepatitis serologies are all negative. ETHAN LAW MD DR: LEXIS/indira JOB#: [id number] / [id number] ecc Dr.
== END 2016-04-15 11:24 | disposition short-term general hospital (02) | DRG 853 ==
LOC: 6 SOUTH 18:24
PROVIDERS: ADMIT Internal Medicine; ATTEND Internal Medicine
PROC: 0J990ZZ Drainage of Buttock Subcutaneous Tissue and Fascia, Open Approach (ICD-10-PCS; principal; 2016-04-07 08:30)
PROC: 30233N1 Transfusion of Nonautologous Red Blood Cells into Peripheral Vein, Percutaneous Approach (ICD-10-PCS; 2016-04-12)
PROC: 5A09357 Assistance with Respiratory Ventilation, Less than 24 Consecutive Hours, Continuous Positive Airway Pressure (ICD-10-PCS; 2016-04-14)
DX: A41.9 Sepsis, unspecified organism (principal); E43 Unspecified severe protein-calorie malnutrition; J96.01 Acute respiratory failure with hypoxia; J96.02 Acute respiratory failure with hypercapnia; N17.9 Acute kidney failure, unspecified; L02.31 Cutaneous abscess of buttock; N18.4 Chronic kidney disease, stage 4 (severe); E23.2 Diabetes insipidus; E66.2 Morbid (severe) obesity with alveolar hypoventilation; D64.9 Anemia, unspecified; E10.21 Type 1 diabetes mellitus with diabetic nephropathy; L73.2 Hidradenitis suppurativa; E10.22 Type 1 diabetes mellitus with diabetic chronic kidney disease; E78.5 Hyperlipidemia, unspecified; F17.200 Nicotine dependence, unspecified, uncomplicated; F60.9 Personality disorder, unspecified; I07.1 Rheumatic tricuspid insufficiency; I12.9 Hypertensive chronic kidney disease with stage 1 through stage 4 chronic kidney disease, or unspecified chronic kidney disease; I27.2 Other secondary pulmonary hypertension; I34.0 Nonrheumatic mitral (valve) insufficiency; N31.9 Neuromuscular dysfunction of bladder, unspecified; R33.8 Other retention of urine; Z79.4 Long term (current) use of insulin; Z82.49 Family history of ischemic heart disease and other diseases of the circulatory system; Z83.3 Family history of diabetes mellitus; Z89.411 Acquired absence of right great toe; Z79.899 Other long term (current) drug therapy; Z79.82 Long term (current) use of aspirin; T40.605A Adverse effect of unspecified narcotics, initial encounter
CPT/HCPCS: 36415; 36600; 71010; 73660; 74000; 76700; 80053; 80069; 80074; 81001; 81025; 82550; 82570; 82575; 82607; 82728; 82805; 82947; 83540; 83550; 83605; 83735; 83970; 84100; 84156; 84300; 84550; 85014; 85018; 85027; 85045; 86704; 86706; 86850; 86900; 86901; 86920; 87071; 87075; 87086; 87205; 87324; 93306; 94660; J0295; J0881; J1170; J1200; J1450; J1815; J1940; J2020; J2405; J2543; J2704; J2765; J3010; J3475; J3490; J7120; P9016; P9041; P9046; Q0169; S0028